=== PATIENT | female | born 1975 | race Caucasian/White ===

== ENCOUNTER 2018-11-30 12:00 | Emergency (ER) | payer BC ==
[2018-11-30] MEDS ORDERED: dexAMETHasone 10 MG/ML VIAL ONE (12:40)
[2018-11-30] MEDS ORDERED: FENTANYL CITR 100 MCG/2 ML ONE (12:41)
[2018-11-30] MEDS ORDERED: LIDOCAINE JELLY 2%- 5 ML TUBE ONE (12:42)
[2018-11-30] MEDS ORDERED: ONDANSETRON 4 MG (ODT) TAB ONE (12:42)
--- NOTE | 2018-11-30 13:58 | ER ---
Nurse's Notes [facility] Name: Isma Castillo Age: 43 yrs Sex: Female : 1975 Arrival Date: 11/30/2018 Time: 12:04 Bed 24 Private MD: Diagnosis: Lumbago with sciatica, left side Presentation: 11/30 12:20 Presenting complaint: Patient states: hx of torn disc X 1 month ago, was taking steroid iw injections as treatment, 30 min ago she stepped off the porch, had severe pain radiating from left low back down left leg, similar to her past injury. Transition of care: patient was not received from another setting of care. Onset of symptoms was November 30, 2018. Risk Assessment: Do you want to hurt yourself or someone else? Patient reports no desire to harm self or others. Initial Sepsis Screen: Does the patient meet any 2 criteria? No. Patient's initial sepsis screen is negative. Does the patient have a suspected source of infection? No. Patient's initial sepsis screen is negative. Care prior to arrival: None. 12:20 Method Of Arrival: Wheelchair iw 12:20 Acuity: ZAKI 4 iw Triage Assessment: 12:20 General: Appears in no apparent distress. uncomfortable, Behavior is calm, cooperative, hj appropriate for age. Pain: Complains of pain in back. Musculoskeletal: Circulation, motion, and sensation intact. 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 - Social history:: Smoking status: Patient/guardian denies using tobacco. - Ebola Screening: : Patient negative for fever greater than or equal to 101.5 degrees Fahrenheit, and additional compatible Ebola Virus Disease symptoms Patient denies exposure to infectious person Patient denies travel to an Ebola-affected area in the 21 days before illness onset No symptoms or risks identified at this time. Screenin:20 Abuse screen: Denies threats or abuse. Denies injuries from another. Nutritional hj screening: No deficits noted. Tuberculosis screening: No symptoms or risk factors identified. Fall Risk None identified. Assessment: 12:20 General: Appears in no apparent distress. uncomfortable, Behavior is cooperative, hj appropriate for age, anxious, crying. Pain: Complains of pain in back. Neuro: Level of Consciousness is awake, alert, obeys commands, Oriented to person, place, time, situation, Appropriate for age. Cardiovascular: Capillary refill < 3 seconds Patient's skin is warm and dry. Respiratory: Airway is patent Respiratory effort is even, unlabored, Respiratory pattern is regular, symmetrical. GI: No signs and/or symptoms were reported involving the gastrointestinal system. : No signs and/or symptoms were reported regarding the genitourinary system. EENT: No signs and/or symptoms were reported regarding the EENT system. Derm: No signs and/or symptoms reported regarding the dermatologic system. Musculoskeletal: Reports pain in back. 12:49 Reassessment: Patient and/or family updated on plan of care and expected duration. Pain hj level reassessed. Patient is alert, oriented x 3, equal unlabored respirations, skin warm/dry/pink. medicated;. 14:03 Reassessment: awaiting for ride in the room; wanted to lie down while waiting for ride;.hj Vital Signs: 12:26 BP 130 / 96; Pulse 90; Resp 16; Temp 98.0; Pulse Ox 100% on R/A; Weight 81.65 kg; iw Height 5 ft. 6 in. (167.64 cm); Pain 10/10; 12:48 BP 129 / 89; Pulse 85; Resp 18; Pulse Ox 100% on R/A; hj 13:36 BP 128 / 76; Pulse 95; Resp 18; Pulse Ox 98% on R/A; hj 12:26 Body Mass Index 29.05 (81.65 kg, 167.64 cm) iw ED Course: 12:04 Patient arrived in ED. mr 12:11 Adebayo Verduzco RN is Primary Nurse. hj 12:12 Arturo Rojas NP is PHCP. pm1 12:12 Lakia Wylie MD is Attending Physician. pm1 12:20 Patient has correct armband on for positive identification. Bed in low position. Call hj light in reach. Side rails up X 1. 12:23 Triage completed. iw 12:28 Arm band placed on. iw 14:22 No provider procedures requiring assistance completed. Patient did not have IV access hj during this emergency room visit. Administered Medications: 12:23 Drug: lidocaine 5% patch 1 patches Route: Topical; Site: affected area; hj 12:23 Drug: fentaNYL (PF) 50 mcg Route: IM; Site: right deltoid; hj 14:27 Follow up: Response: No adverse reaction hj 12: Drug: Zofran 4 mg Route: PO; hj 14:27 Follow up: Response: No adverse reaction hj 12:23 Drug: Decadron 10 mg Route: IM; Site: right deltoid; hj 14:27 Follow up: Response: No adverse reaction hj Outcome: 13:58 Discharge ordered by MD. pm1 14:23 Discharged to home ambulatory. hj 14:23 Condition: stable 14:23 Discharge instructions given to patient, family, Instructed on discharge instructions, follow up and referral plans. medication usage, Demonstrated understanding of instructions, follow-up care, medications, Prescriptions given X 3. 14:26 Patient left the ED. Signatures: Sparkle Hyatt Irene, RN RN iw Adebayo Verduzco RN RN Arturo Ivory, DG ONCOLOGY PHYSICIAN pm1
--- NOTE | 2018-11-30 13:58 | EDPHYS ---
Physician Documentation [facility] Name: Isma Castillo Age: 43 yrs Sex: Female : 1975 Arrival Date: 11/30/2018 Time: 12:04 Bed 24 Private MD: ED Physician Lakia Wylie HPI: 11/30 12:31 This 43 yrs old Female presents to ER via Wheelchair with complaints of Back pm1 Pain. 12:31 The patient presents with pain. The symptoms are located in the left low back. Onset: pm1 The symptoms/episode began/occurred just prior to arrival. The pain radiates to the left leg. Associated signs and symptoms: Pertinent negatives: abdominal pain, constipation, dysuria, fever, headache, incontinence, numbness, tingling, vomiting. The problem was sustained Patient stepped off her porch with the left leg and she felt pain to her left lower back. Patient with herniated disk L5-S1 that was treated with steroid injection 1 month ago in [place]. Patient just moved to [facility] 1 week ago. The patient has experienced similar episodes in the past. 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 - Social history:: Smoking status: Patient/guardian denies using tobacco. - Ebola Screening: : Patient negative for fever greater than or equal to 101.5 degrees Fahrenheit, and additional compatible Ebola Virus Disease symptoms Patient denies exposure to infectious person Patient denies travel to an Ebola-affected area in the 21 days before illness onset No symptoms or risks identified at this time. ROS: 12:31 Constitutional: Negative for fever, chills, and weight loss, Eyes: Negative for injury, pm1 pain, redness, and discharge, ENT: Negative for injury, pain, and discharge, Neck: Negative for injury, pain, and swelling, Cardiovascular: Negative for chest pain, palpitations, and edema, Respiratory: Negative for shortness of breath, cough, wheezing, and pleuritic chest pain, Abdomen/GI: Negative for abdominal pain, nausea, vomiting, diarrhea, and constipation. 12:31 : Negative for injury, bleeding, discharge, and swelling, MS/Extremity: Negative for injury and deformity, Skin: Negative for injury, rash, and discoloration, Neuro: Negative for headache, weakness, numbness, tingling, and seizure. 12:31 Back: Positive for of the left low back. Exam: 12:31 Constitutional: This is a well developed, well nourished patient who is awake, alert, pm1 and in no acute distress. Head/Face: Normocephalic, atraumatic. Eyes: Pupils equal round and reactive to light, extra-ocular motions intact. Lids and lashes normal. Conjunctiva and sclera are non-icteric and not injected. Cornea within normal limits. Periorbital areas with no swelling, redness, or edema. ENT: Nares patent. No nasal discharge, no septal abnormalities noted. Tympanic membranes are normal and external auditory canals are clear. Oropharynx with no redness, swelling, or masses, exudates, or evidence of obstruction, uvula midline. Mucous membranes moist. Neck: Trachea midline, no thyromegaly or masses palpated, and no cervical lymphadenopathy. Supple, full range of motion without nuchal rigidity, or vertebral point tenderness. No Meningismus. Chest/axilla: Normal chest wall appearance and motion. Nontender with no deformity. No lesions are appreciated. Cardiovascular: Regular rate and rhythm with a normal S1 and S2. No gallops, murmurs, or rubs. Normal PMI, no JVD. No pulse deficits. Respiratory: Lungs have equal breath sounds bilaterally, clear to auscultation and percussion. No rales, rhonchi or wheezes noted. No increased work of breathing, no retractions or nasal flaring. Abdomen/GI: Soft, non-tender, with normal bowel sounds. No distension or tympany. No guarding or rebound. No evidence of tenderness throughout. 12:31 Skin: Warm, dry with normal turgor. Normal color with no rashes, no lesions, and no evidence of cellulitis. MS/ Extremity: Pulses equal, no cyanosis. Neurovascular intact. Full, normal range of motion. 12:31 Back: pain, that is moderate, normal spinal alignment noted, vertebral tenderness, is not appreciated. 12:31 Neuro: Orientation: is normal, Motor: is normal, moves all fours. Vital Signs: 12:26 BP 130 / 96; Pulse 90; Resp 16; Temp 98.0; Pulse Ox 100% on R/A; Weight 81.65 kg; iw Height 5 ft. 6 in. (167.64 cm); Pain 10/10; 12:48 BP 129 / 89; Pulse 85; Resp 18; Pulse Ox 100% on R/A; hj 13:36 BP 128 / 76; Pulse 95; Resp 18; Pulse Ox 98% on R/A; hj 12:26 Body Mass Index 29.05 (81.65 kg, 167.64 cm) iw MDM: 12:16 Patient medically screened. pm1 13:14 Data reviewed: vital signs. Data interpreted: Pulse oximetry: on room air is 100 %. pm1 Interpretation: normal. 13:57 Counseling: I had a detailed discussion with the patient and/or guardian regarding: the pm1 historical points, exam findings, and any diagnostic results supporting the discharge/admit diagnosis, the need for outpatient follow up, to return to the emergency department if symptoms worsen or persist or if there are any questions or concerns that arise at home. Administered Medications: 12:23 Drug: lidocaine 5% patch 1 patches Route: Topical; Site: affected area; hj 12:23 Drug: fentaNYL (PF) 50 mcg Route: IM; Site: right deltoid; hj 14:27 Follow up: Response: No adverse reaction hj 12:23 Drug: Zofran 4 mg Route: PO; hj 14:27 Follow up: Response: No adverse reaction hj 12:23 Drug: Decadron 10 mg Route: IM; Site: right deltoid; hj 14:27 Follow up: Response: No adverse reaction hj Disposition: 18:59 Co-signature as Attending Physician, Lakia Wylie MD. ma2 Disposition: 11/30/18 13:58 Discharged to Home. Impression: Lumbago with sciatica, left side. - Condition is Stable. - Discharge Instructions: Back Pain, Adult, Sciatica. - Prescriptions for Tylenol- Codeine #3 300-30 mg Oral Tablet - take 2 tablets by ORAL route every 6 hours As needed; 20 tablet. Cyclobenzaprine 10 mg Oral Tablet - take 1 tablet by ORAL route every 8 hours As needed; 30 tablet. Medrol (Anibal) 4 mg Oral Tablets, Dose Pack - take 1 tablet by ORAL route as directed - follow package instructions; 1 packet. - Medication Reconciliation Form, Thank You Letter, Antibiotic Education, Prescription Opioid Use form. - Follow up: Emergency Department; When: As needed; Reason: Worsening of condition. Follow up: Private Physician; When: 2 - 3 days; Reason: Recheck today's complaints, Continuance of care, Re-evaluation by your physician. - Problem is new. - Symptoms have improved. Signatures: Amber Hyde RN RN iw Adebayo Verduzco RN RN hj Arturo Rojas NP MARKETING AUTOMATION SPECIALIST pm1 Lakia Wylie MD MD ma2 Corrections: (The following items were deleted from the chart) 14:26 13:58 11/30/2018 13:58 Discharged to Home. Impression: Lumbago with sciatica, left hj side. Condition is Stable. Forms are Medication Reconciliation Form, Thank You Letter, Antibiotic Education, Prescription Opioid Use. Follow up: Emergency Department; When: As needed; Reason: Worsening of condition. Follow up: Private Physician; When: 2 - 3 days; Reason: Recheck today's complaints, Continuance of care, Re-evaluation by your physician. Problem is new. Symptoms have improved. pm1
== END 2018-11-30 14:26 | disposition home or self-care (01) ==
LOC: ER 12:00
DX: M54.42 Lumbago with sciatica, left side (principal)
CPT/HCPCS: 96372; 99283; J1100; J3010

== ENCOUNTER 2019-03-06 14:27 | Emergency (ER) | payer BC ==
[2019-03-06] MEDS ORDERED: ONDANSETRON 4 MG/2 ML VIAL ONE (15:19)
[2019-03-06] MEDS ORDERED: MECLIZINE HCL 12.5 MG TAB ONE (15:19)
[2019-03-06] MEDS ORDERED: NA CHLORIDE 0.9% 1,000 ML ONE (15:19)
--- NOTE | 2019-03-06 15:34 | RAD REPORT ---
EXAM DESCRIPTION: CT - Head Brain Wo Cont - 03/06/2019 3:30 pm CLINICAL HISTORY: Dizziness, headache COMPARISON: None. TECHNIQUE: Axial 5 mm thick images of the head were obtained without IV contrast. All CT scans are performed using dose optimization technique as appropriate and may include automated exposure control or mA/KV adjustment according to patient size. FINDINGS: No intracranial hemorrhage, mass, edema or shift of mid-line structures. No acute infarcti on changes seen. No abnormal extra-axial fluid collections. Ventricles are normal. Mastoid air cells and visualized portions of the paranasal sinuses are clear. No acute bony findings. IMPRESSION: Negative non-contrast CT head examination.
[2019-03-06 15:37] LABS: Protime INR 1.02
--- NOTE | 2019-03-06 15:54 | RAD REPORT ---
EXAM DESCRIPTION: RAD - Chest Single View - 03/06/2019 3:39 pm CLINICAL HISTORY: Chest pain COMPARISON: None. TECHNIQUE: AP portable chest image was obtained 1536 hours . FINDINGS: Lungs are clear. Heart and vasculature are normal. No measurable pleural effusion and no p neumothorax. No acute bony abnormality seen. No acute aortic findings suspected. IMPRESSION: No acute cardiopulmonary process.
[2019-03-06 15:57] LABS: ALT/SGPT 52 U/L (12-78); AST/SGOT 24 U/L (15-37); Albumin 3.8 g/dL (3.4-5.0); Alkaline Phosphatase 83 U/L (45-117); BUN Blood Urea Nitrogen 14 mg/dL (7-18); Bicarbonate 29 mmol/L (21-32); Bilirubin Direct < 0.1 mg/dL (0-0.2); Bilirubin Total 0.4 mg/dL (0.2-1.0); Glucose Level 89 mg/dL (74-106); NT PRO-BNP 11 pg/mL (<125); Potassium 3.8 mmol/L (3.5-5.1); Protein, Total 7.4 g/dL (6.4-8.2); Sodium Level 138 mmol/L (136-145); Troponin (Emerg Dept Use Only) < 0.02 ng/mL (0.0-0.045)
[2019-03-06 16:04] LABS: Absolute Lymphocytes (CBC) 2.2 K/uL (0.7-4.9); Basophils % 0.5 % (0-1.3); Hematocrit 39.4 % (36.0-45.0); Lymphocytes % 34.6 % (15.3-44.8); RBC Red Blood Cell Count 4.36 M/uL (3.86-4.86)
--- NOTE | 2019-03-06 17:13 | EKG ---
Test Date: 2019-03-06 Test Time: 14:52:09 Heat Engineering Teacher: ELIZABETH MEASUREMENT RESULTS: Intervals: Rate: 95 WY: 148 QRSD: 80 QT: 374 QTc: 469 [place]: P: 53 WY: 148 QRS: 8 T: 17 INTERPRETIVE STATEMENTS: Normal sinus rhythm Normal ECG No previous ECG available for comparison Electronically Signed On 03-06-19 17:12:34 CDT by Maicol Verdugo
[2019-03-06] MEDS ORDERED: DIAZEPAM 10 MG/2 ML INJ SYRINGE ONE (17:50)
--- NOTE | 2019-03-06 18:08 | EDPHYS ---
Physician Documentation [facility] Name: Isma Castillo Age: 43 yrs Sex: Female : 1975 Arrival Date: 03/06/2019 Time: 14:31 Bed 30 Private MD: ED Physician Fortunato Flores HPI: 03/06 15:15 This 43 yrs old Female presents to ER via EMS with complaints of Chest Pain, jmm Insect Bite. 15:15 The patient presents with dizziness. Onset: The symptoms/episode began/occurred jm acutely, just prior to arrival. This is a 43 year old female with a history of fibromyalgia that presents to the ED with complaints of chest pain and dizziness which began while at urgent care evaluating a rash on her left bicep. Patient denies history of CAD, htn. Denies tobacco use. . 17:39 Patient states recovering from a couple 3 week prior. . jmm Historical: - Allergies: 14:35 No Known Allergies; tr5 - Home Meds: 14:35 Celexa 20 mg Oral tab 1 tab once daily [Active]; cyclobenzaprine 5 mg Oral tab 1 tab 3 tr5 times per day [Active]; Lunesta 2 mg Oral tab 1 tab once daily [Active]; - PMHx: 14:35 Fibromyalgia; Anxiety; insomnia; tr5 - PSHx: 14:35 Knee surgery; Hysterectomy; tr5 - Immunization history:: Adult Immunizations up to date. - Social history:: Smoking status: Patient/guardian denies using tobacco, never smoked. - Ebola Screening: : No symptoms or risks identified at this time. ROS: 15:15 Constitutional: Negative for fever, chills, and weight loss. jmm 15:15 Respiratory: Negative for shortness of breath, cough, wheezing, and pleuritic chest pain. 15:15 Cardiovascular: Positive for chest pain. 15:15 Abdomen/GI: Positive for nausea. 15:15 Skin: Positive for rash. 15:15 Neuro: Positive for dizziness. 15:15 All other systems are negative. Exam: 15:15 Constitutional: This is a well developed, well nourished patient who is awake, alert, jmm and in no acute distress. Head/Face: atraumatic. Eyes: EOMI, no conjunctival erythema appreciated ENT: Moist Mucus Membranes Neck: Trachea midline, Supple Chest/axilla: Normal chest wall appearance and motion. Cardiovascular: Regular rate and rhythm. No edema appreciated Respiratory: Normal respirations, no respiratory distress appreciated Abdomen/GI: Non distended, soft Back: Normal ROM Skin: General appearance color normal 15:15 Cardiovascular: Rate: normal, Rhythm: regular. 15:15 Respiratory: the patient does not display signs of respiratory distress, Respirations: normal, Breath sounds: are clear throughout. 15:15 Abdomen/GI: Inspection: abdomen appears normal, Bowel sounds: normal, Palpation: abdomen is soft and non-tender, in all quadrants. 15:15 Musculoskeletal/extremity: ROM: intact in all extremities. 15:15 Skin: Appearance: Color: normal in color. 15:15 Neuro: Orientation: is normal, Mentation: is normal, Memory: is normal. 15:15 Psych: Behavior/mood is pleasant, cooperative. 17:38 Skin: erythema noted to the left bicep. [facility] Vital Signs: 14:35 BP 124 / 81; Pulse 92; Resp 17; Temp 98.7(O); Pulse Ox 95% on R/A; Weight 88.45 kg; tr5 Height 5 ft. 6 in. (167.64 cm); Pain 5/10; 15:46 BP 125 / 81; Pulse 92; Resp 16; Pulse Ox 100% on R/A; tr5 17:00 BP 116 / 64; Pulse 92; Resp 15; Pulse Ox 99% on R/A; tr5 18:17 BP 116 / 72; Pulse 96; Resp 15; Pulse Ox 99% on R/A; tr5 14:35 Body Mass Index 31.47 (88.45 kg, 167.64 cm) tr5 MDM: 15:16 Patient medically screened. [facility] 18:03 Data reviewed: vital signs, nurses notes. Counseling: I had a detailed discussion with [facility] the patient and/or guardian regarding: the historical points, exam findings, and any diagnostic results supporting the discharge/admit diagnosis, lab results, radiology results, the need for outpatient follow up, to return to the emergency department if symptoms worsen or persist or if there are any questions or concerns that arise at home. ED course: PERC NEGATIVE. HEART SCORE = 0. Dizziness resolved in the ED. May be due to labrynthitis due to recent cold. Patient prescribed steroids. Patient advised to follow up with Dr. Murray for reevaluation. Patient otherwise given strict return precautions. Patient understood and agrees with the plan of care. . 03/06 15:15 Order name: Basic Metabolic Panel; Complete Time: 16: [facility] 03/06 15:15 Order name: CBC with Diff; Complete Time: 16:37 [facility] 03/06 15:15 Order name: LFT's; Complete Time: 16: [facility] 03/06 15:15 Order name: Magnesium; Complete Time: 16: [facility] 03/06 15:15 Order name: NT PRO-BNP; Complete Time: 16: [facility] 03/06 15:15 Order name: PT-INR; Complete Time: 16:37 [facility] 03/06 15:15 Order name: Troponin (emerg Dept Use Only); Complete Time: 16: [facility] 03/06 15:15 Order name: XRAY Chest (1 view); Complete Time: 16: [facility] 03/06 15:15 Order name: EKG; Complete Time: 15:16 [facility] 03/06 15:15 Order name: CT Head Brain wo Cont; Complete Time: 15:49 [facility] 03/06 15:15 Order name: Cardiac monitoring; Complete Time: 15:18 [facility] 03/06 15:15 Order name: EKG - Nurse/Tech; Complete Time: 15:18 [facility] 03/06 15:15 Order name: IV Saline Lock; Complete Time: 15:17 [facility] 03/06 15:15 Order name: Labs collected and sent; Complete Time: 15:17 [facility] 03/06 15:15 Order name: O2 Per Protocol; Complete Time: 15: [facility] 03/06 15:15 Order name: O2 Sat Monitoring; Complete Time: 15:17 [facility] Administered Medications: 15:26 Drug: Zofran 4 mg Route: IVP; Site: right antecubital; tr5 15:46 Follow up: Response: Nausea is decreased tr5 15:26 Drug: Meclizine 50 mg Route: PO; tr5 15:46 Follow up: Response: Marked relief of symptoms tr5 15:46 Drug: NS 0.9% 1000 ml Route: IV; Rate: 1 bolus; Site: right antecubital; tr5 16:15 Follow up: IV Status: Completed infusion; IV Intake: 1000ml tr5 17:54 Drug: Valium 2 mg Route: IVP; Site: right antecubital; tr5 18:17 Follow up: Response: Anxiety decreased tr5 Disposition: 03/06/19 18:07 Discharged to Home. Impression: Dizziness and giddiness, Chest pain, unspecified, Cellulitis of left upper limb. - Condition is Stable. - Discharge Instructions: Nonspecific Chest Pain, Dizziness, Chest Pain, Pediatric, Labyrinthitis. - Prescriptions for Prednisone 20 mg Oral Tablet - take 3 tablet by ORAL route once daily for 5 days; 15 tablet. Valium 5 mg Oral Tablet - take 1 tablet by ORAL route every 8 hours As needed; 20 tablet. Keflex 500 mg Oral Capsule - take 1 capsule by ORAL route every 12 hours for 7 days; 14 capsule. - Medication Reconciliation Form, Thank You Letter, Antibiotic Education, Prescription Opioid Use form. - Follow up: Private Physician; When: 2 - 3 days; Reason: Recheck today's complaints, Continuance of care, Re-evaluation by your physician. Addendum: 03/08/2019 22:45 Co-signature as Attending Physician, Fortunato Flores MD. g s Signatures: Dispatcher [employer] EDMS Marcos Parker PA PA jmm Starr, Gregory, MD MD gs Botello, Elizabeth eb Rodriguez, Tommie, RN RN tr5 Corrections: (The following items were deleted from the chart) 03/06 18:24 18:07 03/06/2019 18:07 Discharged to Home. Impression: Dizziness and giddiness; Chest tr5 pain, unspecified; Cellulitis of left upper limb. Condition is Stable. Forms are Medication Reconciliation Form, Thank You Letter, Antibiotic Education, Prescription Opioid Use. Follow up: Private Physician; When: 2 - 3 days; Reason: Recheck today's complaints, Continuance of care, Re-evaluation by your physician. [facility] 18:55 18:24 03/06/2019 18:07 Discharged to Home. Impression: Dizziness and giddiness; Chest eb pain, unspecified; Cellulitis of left upper limb. Condition is Stable. Discharge Instructions: Nonspecific Chest Pain, Dizziness, Chest Pain, Pediatric, Labyrinthitis. Prescriptions for Prednisone 20 mg Oral Tablet - take 3 tablet by ORAL route once daily for 5 days; 15 tablet, Valium 5 mg Oral Tablet - take 1 tablet by ORAL route every 8 hours As needed; 20 tablet. and Forms are Medication Reconciliation Form, Thank You Letter, Antibiotic Education, Prescription Opioid Use. Follow up: Private Physician; When: 2 - 3 days; Reason: Recheck today's complaints, Continuance of care, Re-evaluation by your physician. tr5
--- NOTE | 2019-03-06 18:08 | ER ---
Nurse's Notes [facility] Name: Isma Castillo Age: 43 yrs Sex: Female : 1975 Arrival Date: 03/06/2019 Time: 14:31 Bed 30 Private MD: Diagnosis: Dizziness and giddiness;Chest pain, unspecified;Cellulitis of left upper limb Presentation: 03/06 14:32 Presenting complaint: EMS states: Pt was at urgent care for a insect bite to her L tr5 bicep when she started experiencing some sternal chest pain and nausea. Pt also complains of some dizziness. Transition of care: Urgent care center. Onset of symptoms was March 06, 2019. Risk Assessment: Do you want to hurt yourself or someone else? Patient reports no desire to harm self or others. Initial Sepsis Screen: Does the patient meet any 2 criteria? HR > 90 bpm. No. Patient's initial sepsis screen is negative. Does the patient have a suspected source of infection? No. Patient's initial sepsis screen is negative. Care prior to arrival: None. 14:32 Method Of Arrival: EMS: [facility] tr5 14:32 Acuity: ZAKI 3 tr5 Historical: - Allergies: 14:35 No Known Allergies; tr5 - Home Meds: 14:35 Celexa 20 mg Oral tab 1 tab once daily [Active]; cyclobenzaprine 5 mg Oral tab 1 tab 3 tr5 times per day [Active]; Lunesta 2 mg Oral tab 1 tab once daily [Active]; - PMHx: 14:35 Fibromyalgia; Anxiety; insomnia; tr5 - PSHx: 14:35 Knee surgery; Hysterectomy; tr5 - Immunization history:: Adult Immunizations up to date. - Social history:: Smoking status: Patient/guardian denies using tobacco, never smoked. - Ebola Screening: : No symptoms or risks identified at this time. Screenin:40 Abuse screen: Denies threats or abuse. Nutritional screening: No deficits noted. tr5 Tuberculosis screening: No symptoms or risk factors identified. Fall Risk None identified. Assessment: 14:40 General: Appears uncomfortable, Behavior is calm, cooperative, appropriate for age. tr5 Pain: Complains of pain in mid-sternal area Pain does not radiate. Pain currently is 5 out of 10 on a pain scale. Quality of pain is described as aching, Pain began 30 min ago. Pain: Alleviated by relaxation. Neuro: Level of Consciousness is. Neuro: Reports dizziness. Cardiovascular: Heart tones present Capillary refill < 3 seconds Pulses are all present. Edema is 1+ to left upper arm. Respiratory: Airway is patent Respiratory effort is even, unlabored, Respiratory pattern is regular, symmetrical. GI:. GI: Reports nausea. : No signs and/or symptoms were reported regarding the genitourinary system. EENT: No signs and/or symptoms were reported regarding the EENT system. Derm: Bite to L biceps. Musculoskeletal: No signs and/or symptoms reported regarding the musculoskeletal system. 15:49 Reassessment: Patient appears in no apparent distress at this time. Patient and/or tr5 family updated on plan of care and expected duration. Pain level reassessed. Patient is alert, oriented x 3, equal unlabored respirations, skin warm/dry/pink. Patient states feeling better. 17:00 Reassessment: Patient appears in no apparent distress at this time. Patient and/or tr5 family updated on plan of care and expected duration. Pain level reassessed. Patient is alert, oriented x 3, equal unlabored respirations, skin warm/dry/pink. 18:16 Reassessment: Patient appears in no apparent distress at this time. Patient and/or tr5 family updated on plan of care and expected duration. Pain level reassessed. Patient is alert, oriented x 3, equal unlabored respirations, skin warm/dry/pink. Patient states feeling better. Patient states symptoms have improved. Vital Signs: 14:35 BP 124 / 81; Pulse 92; Resp 17; Temp 98.7(O); Pulse Ox 95% on R/A; Weight 88.45 kg; tr5 Height 5 ft. 6 in. (167.64 cm); Pain 5/10; 15:46 BP 125 / 81; Pulse 92; Resp 16; Pulse Ox 100% on R/A; tr5 17:00 BP 116 / 64; Pulse 92; Resp 15; Pulse Ox 99% on R/A; tr5 18:17 BP 116 / 72; Pulse 96; Resp 15; Pulse Ox 99% on R/A; tr5 14:35 Body Mass Index 31.47 (88.45 kg, 167.64 cm) tr5 ED Course: 14:31 Patient arrived in ED. tr5 14:34 Triage completed. tr5 14:35 Arm band placed on Patient placed. tr5 14:40 Avel Sanchez, RN is Primary Nurse. tr5 14:40 Patient has correct armband on for positive identification. Bed in low position. Call tr5 light in reach. Side rails up X 1. monitor technician on. Pulse ox on. NIBP on. 14:55 Initial lab(s) drawn, by ks, sent to lab. Inserted saline lock: 22 gauge in right tr5 antecubital area, using aseptic technique. 15:08 Marcos Parker PA is PHCP. [facility] 15:08 Fortunato Flores MD is Attending Physician. [facility] 15:15 EKG done, by landfill gas technician. reviewed by Fortunato Flores MD. 3 15:[address] tr5 15:30 CT Head Brain wo Cont In Process Unspecified. EDMS 15:38 XRAY Chest (1 view) In Process Unspecified. EDMS 18:23 No provider procedures requiring assistance completed. IV discontinued. Patient tr5 maintains SpO2 saturation greater than 95% on room air. 18:48 PHCP role handed off by Marcos Parker PA eb 18:48 Primary Nurse role handed off by Avel Sanchez, NUPUR eb Administered Medications: 15:26 Drug: Zofran 4 mg Route: IVP; Site: right antecubital; tr5 15:46 Follow up: Response: Nausea is decreased tr5 15:26 Drug: Meclizine 50 mg Route: PO; tr5 15:46 Follow up: Response: Marked relief of symptoms tr5 15:46 Drug: NS 0.9% 1000 ml Route: IV; Rate: 1 bolus; Site: right antecubital; tr5 16:15 Follow up: IV Status: Completed infusion; IV Intake: 1000ml tr5 17:54 Drug: Valium 2 mg Route: IVP; Site: right antecubital; tr5 18:17 Follow up: Response: Anxiety decreased tr5 Intake: 16:15 IV: 1000ml; Total: 1000ml. tr5 Outcome: 18:07 Discharge ordered by . jm 18:23 Discharged to home ambulatory. tr5 18:23 Condition: stable 18:23 Discharge instructions given to patient, family, Instructed on discharge instructions, follow up and referral plans. medication usage, Demonstrated understanding of instructions, follow-up care, medications, Prescriptions given X 2. 18:24 Patient left the ED. tr5 18:55 Patient left the ED. eb Signatures: Dispatcher [employer] EDMarcos Barth PA PA jmm Botello, Elizabeth eb Montes, Shakira 3 Avel Sanchez, RN RN tr5
[2019-03-06 18:37] VITALS: TEMP 98.7
[2019-03-06 18:39] VITALS: O2SAT 99
[2019-03-06 18:40] VITALS: BP 116/72
== END 2019-03-06 18:55 | disposition home or self-care (01) ==
LOC: ER 14:27
DX: R07.9 Chest pain, unspecified (principal); L03.114 Cellulitis of left upper limb; F41.9 Anxiety disorder, unspecified; M79.7 Fibromyalgia
CPT/HCPCS: 93005; 85025; 80048; 36415; 83735; 85610; 80076; 84484; 83880; 70450; 71045; 96375; 96374; 99285; J3360; J7030; J2405; J8597

== ENCOUNTER 2020-05-12 15:49 | Emergency (ER) | payer BC ==
--- OUTSIDE RECORDS SUMMARY | 2020-05-12 15:51 | XMS REPORT | Continuity of Care Document ---
:1975 Author Organization [facility] t Address [address] [place] [address] Care Team Providers Name Role Phone Radiology Attending Clinician Unavailable Problems This patient has no known problems. Allergies, Adverse Reactions, Alerts This patient has no known allergies or adverse reactions. Medications This patient has no known medications. Procedures This patient has no known procedures. Encounters Start End Encounter Admission Attending Care Care Encounter Source Date/Time Date/Time Type Type Clinicians Facility Department ID 2019-12-24 2019-12-24 [facility] Radiology [facility] [id number] 12:43:00 23:59:00 Encounter [place] [id number] [place] [id number] [place] [id number] 2019-12-16 2019-12-16 [facility] Radiology [facility] [id number] 10:30:00 23:59:00 Encounter [place] [id number] [place] [id number] [place] [id number] 2019-08-01 2019-08-01 Emergency E [facility] [id number] [facility]BL 13:27:00 13:27:00 Results This patient has no known results.
[2020-05-12 17:11] LABS: Urine Blood TRACE (NEG); Urine Glucose NEGATIVE (NEG); Urine Protein NEGATIVE (NEG); Urine Specific Gravity 1.025 (1.005-1.030); Urine pH 5.5 (5.0-7.0)
[2020-05-12] MEDS ORDERED: KETOROLAC 30 MG/ML INJ ONE (17:41)
[2020-05-12] MEDS ORDERED: DIAZEPAM 5 MG TABLET ONE (17:41)
[2020-05-12 18:02] LABS: Urine Bacteria >50 /HPF (<20); Urine RBC <5 /HPF (NONE SEEN)
--- NOTE | 2020-05-12 18:18 | EDPHYS ---
Physician Documentation [facility] Name: Isma Castillo Age: 44 yrs Sex: Female : 1975 Arrival Date: 05/12/2020 Time: 15:50 Bed 24 Private MD: Adrien Murray B ED Physician Eder Wise HPI: 05/12 17:47 This 44 yrs old Female presents to ER via Ambulatory with complaints of Back snw Pain. 17:47 The patient presents with pain that is acute. The symptoms are located in the low back. snw Onset: The symptoms/episode began/occurred suddenly, and became worse and became persistent. The pain radiates to the left gluteus inderjit. Associated signs and symptoms: Pertinent positives: none. The problem was sustained during a fall. Severity of symptoms: At their worst the symptoms were moderate, severe. The patient has experienced similar episodes in the past, several times. The patient has not recently seen a physician. tore musculature of L5/S1. 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 - Social history:: Smoking status: Patient denies any tobacco usage or history of. ROS: 17:46 Constitutional: Negative for fever, chills, and weight loss, Eyes: Negative for injury, snw pain, redness, and discharge, ENT: Negative for injury, pain, and discharge, Neck: Negative for injury, pain, and swelling, Cardiovascular: Negative for chest pain, palpitations, and edema, Respiratory: Negative for shortness of breath, cough, wheezing, and pleuritic chest pain, Abdomen/GI: Negative for abdominal pain, nausea, vomiting, diarrhea, and constipation, : Negative for injury, bleeding, discharge, and swelling, MS/Extremity: Negative for injury and deformity, Skin: Negative for injury, rash, and discoloration, Neuro: Negative for headache, weakness, numbness, tingling, and seizure, Psych: Negative for depression, anxiety, suicide ideation, homicidal ideation, and hallucinations. 17:46 Back: Positive for decreased range of motion, pain at rest, pain with movement, radiated pain, of the left low back and down left buttock. Exam: 17:45 Head/Face: Normocephalic, atraumatic. Eyes: Pupils equal round and reactive to light, snw extra-ocular motions intact. Lids and lashes normal. Conjunctiva and sclera are non-icteric and not injected. Cornea within normal limits. Periorbital areas with no swelling, redness, or edema. ENT: Nares patent. No nasal discharge, no septal abnormalities noted. Tympanic membranes are normal and external auditory canals are clear. Oropharynx with no redness, swelling, or masses, exudates, or evidence of obstruction, uvula midline. Mucous membranes moist. Neck: Trachea midline, no thyromegaly or masses palpated, and no cervical lymphadenopathy. Supple, full range of motion without nuchal rigidity, or vertebral point tenderness. No Meningismus. Chest/axilla: Normal chest wall appearance and motion. Nontender with no deformity. No lesions are appreciated. Respiratory: Lungs have equal breath sounds bilaterally, clear to auscultation and percussion. No rales, rhonchi or wheezes noted. No increased work of breathing, no retractions or nasal flaring. Abdomen/GI: Soft, non-tender, with normal bowel sounds. No distension or tympany. No guarding or rebound. No evidence of tenderness throughout. Skin: Warm, dry with normal turgor. Normal color with no rashes, no lesions, and no evidence of cellulitis. MS/ Extremity: Pulses equal, no cyanosis. Neurovascular intact. Full, normal range of motion. Neuro: Awake and alert, GCS 15, oriented to person, place, time, and situation. Cranial nerves II-XII grossly intact. Motor strength 5/5 in all extremities. Sensory grossly intact. Cerebellar exam normal. Normal gait. Psych: Awake, alert, with orientation to person, place and time. Behavior, mood, and affect are within normal limits. 17:45 Constitutional: The patient appears alert, awake, anxious, restless, uncomfortable. 17:45 Back: pain, that is moderate, that is severe, of the left low back, normal spinal alignment noted, CVA tenderness, is absent. 17:45 Neuro: Orientation: is normal, Mentation: is normal, Memory: is normal, Sensation: no obvious gross deficits, Babinski testing is normal, seizure activity, is not displayed by the patient. Vital Signs: 16:03 BP 137 / 96; Pulse 129; Resp 19; Temp 97.9; Pulse Ox 98% ; Weight 88.45 kg; Height 5 jl7 ft. 5 in. 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 aa5 MDM: 16:59 Patient medically screened. snw 18:32 Data reviewed: vital signs, nurses notes. Data interpreted: Pulse oximetry: on room air snw is 98 %. Interpretation: normal. Counseling: I had a detailed discussion with the patient and/or guardian regarding: the historical points, exam findings, and any diagnostic results supporting the discharge/admit diagnosis, lab results, the need for outpatient follow up, to return to the emergency department if symptoms worsen or persist or if there are any questions or concerns that arise at home. Response to treatment: the patient's symptoms have markedly improved after treatment. 05/12 16:17 Order name: Urine Culture snw 05/12 16:17 Order name: Urine Microscopic Only; Complete Time: 18:31 snw 05/12 16:54 Order name: Urine Dipstick--Ancillary (enter results); Complete Time: 17:15 bd 05/12 16:58 Order name: Flu; Complete Time: 18:31 snw 05/12 16:58 Order name: COVID-19 snw 05/12 16:17 Order name: Urine Dipstick-Ancillary (obtain specimen); Complete Time: 16:54 snw Administered Medications: 17:28 Drug: TORadol 60 mg Route: IM; Site: left gluteus; aa5 17:53 Follow up: Response: No adverse reaction; Marked relief of symptoms; Pain is decreased aa5 17:28 Drug: Valium 5 mg Route: PO; aa5 17:54 Follow up: Response: No adverse reaction; Marked relief of symptoms; Pain is decreased aa5 18:21 Drug: [place] 10 mg-325 mg 1 tabs Route: PO; aa5 18:21 Follow up: Response: No adverse reaction; Medication administered at discharge. aa5 18:34 CANCELLED (Other Intervention Used): Rocephin (cefTRIAXone) 1 grams IM once snw 18:35 Drug: Augmentin 875 mg Route: PO; aa5 18:40 Follow up: Response: No adverse reaction; Medication administered at discharge. aa5 Disposition: 05/13 07:52 Co-signature as Attending Physician, Eder Wise MD I agree with the assessment and kdr plan of care. Disposition: 05/12/20 18:17 Discharged to Home. Impression: Low back pain, Sciatica, left side, Urinary tract infection, site not specified. - Condition is Stable. - Discharge Instructions: Back Pain, Adult, Musculoskeletal Pain, Sciatica, Rehydration, Adult, Heat Therapy, Radicular Pain, Back Injury Prevention. - Prescriptions for Tylenol- Codeine #3 300-30 mg Oral Tablet - take 2 tablets by ORAL route every 6 hours As needed; 14 tablet. Prednisone 20 mg Oral Tablet - take 2 tablet by ORAL route once daily for 5 days; 10 tablet. orphenadrine citrate 100 mg Oral Tablet Sustained Release - take 1 tablet by ORAL route 2 times per day As needed; 20 tablet. Augmentin 875- 125 mg Oral Tablet - take 1 tablet by ORAL route every 12 hours for 10 days; 20 tablet. - Work release form, Medication Reconciliation Form, Thank You Letter, Antibiotic Education, Prescription Opioid Use form. - Follow up: Emergency Department; When: As needed; Reason: Worsening of condition. Follow up: Adrien Murray MD; When: 2 - 3 days; Reason: Recheck today's complaints, Continuance of care, Re-evaluation by your physician. Signatures: [facility] Eder Wise MD MD kdr Waters, Shelly, MAIL ORDER SORTER-C MAIL ORDER SORTER-Csnw Carolyn Babb RN RN aa5 Amita Fuentes RN RN jl7 Corrections: (The following items were deleted from the chart) 12 18:33 18:17 05/12/2020 18:17 Discharged to Home. Impression: Low back pain; Sciatica, left snw side. Condition is Stable. Forms are Medication Reconciliation Form, Thank You Letter, Antibiotic Education, Prescription Opioid Use. Follow up: Emergency Department; When: As needed; Reason: Worsening of condition. Follow up: Adrien Murray; When: 2 - 3 days; Reason: Recheck today's complaints, Continuance of care, Re-evaluation by your physician. snw 18:34 18:32 Rocephin (cefTRIAXone) 1 grams IM once ordered. snw snw 18:34 18:33 Rocephin (cefTRIAXone) 1 grams IM once ordered. snw snw 18:49 18:33 05/12/2020 18:17 Discharged to Home. Impression: Low back pain; Sciatica, left aa5 side; Urinary tract infection, site not specified. Condition is Stable. Discharge Instructions: Back Pain, Adult, Musculoskeletal Pain, Sciatica, Rehydration, Adult, Heat Therapy, Radicular Pain, Back Injury Prevention. Prescriptions for Tylenol-Codeine #3 300-30 mg Oral Tablet - take 2 tablets by ORAL route every 6 hours As needed; 14 tablet, Prednisone 20 mg Oral Tablet - take 2 tablet by ORAL route once daily for 5 days; 10 tablet, orphenadrine citrate 100 mg Oral Tablet Sustained Release - take 1 tablet by ORAL route 2 times per day As needed; 20 tablet. and Forms are Medication Reconciliation Form, Thank You Letter, Antibiotic Education, Prescription Opioid Use, Work release form. Follow up: Emergency Department; When: As needed; Reason: Worsening of condition. Follow up: Adrien Murray; When: 2 - 3 days; Reason: Recheck today's complaints, Continuance of care, Re-evaluation by your physician. snw
--- NOTE | 2020-05-12 18:18 | ER ---
Nurse's Notes [facility] Name: Isma Castillo Age: 44 yrs Sex: Female : 1975 Arrival Date: 05/12/2020 Time: 15:50 Bed 24 Private MD: Adrien Murray B Diagnosis: Low back pain;Sciatica, left side;Urinary tract infection, site not specified Presentation: 05/12 16:03 Chief complaint: Patient states: "I threw my back out, again." Reports Left low back jl7 pain. Coronavirus screen: Client denies travel out of the [place] in the last 14 days. At this time, the client does not indicate any symptoms associated with coronavirus-19. Ebola Screen: No symptoms or risks identified at this time. Initial Sepsis Screen: Does the patient meet any 2 criteria? No. Patient's initial sepsis screen is negative. Does the patient have a suspected source of infection? No. Patient's initial sepsis screen is negative. Risk Assessment: Do you want to hurt yourself or someone else? Patient reports no desire to harm self or others. Onset of symptoms was May 12, 2020. Care prior to arrival: None. 16:03 Method Of Arrival: Ambulatory jl7 16:03 Acuity: ZAKI 4 jl7 Triage Assessment: 16:05 General: Appears in no apparent distress. uncomfortable, Behavior is cooperative, jl7 anxious, crying. Pain: Complains of pain in left low back Pain currently is 8 out of 10 on a pain scale. Musculoskeletal: Swelling absent. 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 - Social history:: Smoking status: Patient denies any tobacco usage or history of. Screenin:54 Abuse screen: Denies threats or abuse. Denies injuries from another. Nutritional jl7 screening: No deficits noted. Tuberculosis screening: No symptoms or risk factors identified. Fall Risk Gait- Weak (10 pts.). Total [place] Fall Scale indicates Low Risk Score (25-44 pts). Fall prevention measures have been instituted. Side Rails Up X 2 Placed close to Nursing Station Frequent Obs/Assesments occuring Family Present and informed to notify staff if they need to leave bedside As available Patient and Family Educated on Fall Prevention Program and strategies. Assessment: 17:10 General: Appears uncomfortable, Behavior is calm, cooperative. Pain: Complains of pain aa5 in left low back Pain currently is 10 out of 10 on a pain scale. Quality of pain is described as sharp, shooting, Is continuous, Aggravated by increased activity, repositioning. Neuro: Level of Consciousness is awake, alert, obeys commands, Oriented to person, place, time, situation. Cardiovascular: Heart tones S1 S2 present Patient's skin is warm and dry. Rhythm is regular. Respiratory: Airway is patent Respiratory effort is even, unlabored, Respiratory pattern is regular, symmetrical. GI: No signs and/or symptoms were reported involving the gastrointestinal system. : No signs and/or symptoms were reported regarding the genitourinary system. EENT: No signs and/or symptoms were reported regarding the EENT system. Derm: Skin is pink, warm \\T\\ dry. Musculoskeletal: Range of motion: intact in all extremities. 17:53 Reassessment: Patient is alert, oriented x 3, equal unlabored respirations, skin aa5 warm/dry/pink. Patient states feeling better. Patient states symptoms have improved. Pain: Pain currently is 3 out of 10 on a pain scale. 18:40 Reassessment: Patient is alert, oriented x 3, equal unlabored respirations, skin aa5 warm/dry/pink. Patient states feeling better. Vital Signs: 16:03 BP 137 / 96; Pulse 129; Resp 19; Temp 97.9; Pulse Ox 98% ; Weight 88.45 kg; Height 5 jl7 ft. 5 in. 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 aa5 ED Course: 15:50 Patient arrived in ED. ag5 15:50 Adrien Murray MD is Private Physician. ag5 16:04 Triage completed. jl7 16:05 Arm band placed on right wrist. jl7 16:51 Amita Fuentes RN is Primary Nurse. jl7 16:54 Patient has correct armband on for positive identification. Placed in gown. Bed in low jl7 position. Call light in reach. Side rails up X 1. 16:54 Urine collected: clean catch specimen, clear. jl7 16:59 Nad[facility] Little [facility]C [facility] snw 16:59 Eder Wise MD is Attending Physician. snw 18:14 Adrien Murray MD is Referral Physician. snw 18:40 No provider procedures requiring assistance completed. Patient did not have IV access aa5 during this emergency room visit. Administered Medications: 17:28 Drug: TORadol 60 mg Route: IM; Site: left gluteus; aa5 17:53 Follow up: Response: No adverse reaction; Marked relief of symptoms; Pain is decreased aa5 17:28 Drug: Valium 5 mg Route: PO; aa5 17:54 Follow up: Response: No adverse reaction; Marked relief of symptoms; Pain is decreased aa5 18:21 Drug: [place] 10 mg-325 mg 1 tabs Route: PO; aa5 18:21 Follow up: Response: No adverse reaction; Medication administered at discharge. aa5 18:34 CANCELLED (Other Intervention Used): Rocephin (cefTRIAXone) 1 grams IM once snw 18:35 Drug: Augmentin 875 mg Route: PO; aa5 18:40 Follow up: Response: No adverse reaction; Medication administered at discharge. aa5 Outcome: 18:17 Discharge ordered by . snw 18:40 Discharged to home via wheelchair, with significant other. aa5 18:40 Condition: improved 18:40 Discharge instructions given to patient, Instructed on discharge instructions, follow up and referral plans. medication usage, Demonstrated understanding of instructions, follow-up care, medications, Prescriptions given X 4. 18:49 Patient left the ED. aa5 Addendum: 05/16/2020 16:10 Addendum: COVID-19 Result: Negative result given to RN to notify pt. Notified pt of i w negative COVID 19 swab results. Pt advised that even with a negative test result they should remain in isolation until symptom free for 3 days without medication. Pt also advised to return to the ED for worsening symptoms. Signatures: Nadja Little, NELI-C OIL AND GAS WELL TREATMENT OPERATOR-Csnw Amber Hyde RN RN iw Carolyn Babb RN RN aa5 Amita Fuentes RN RN jl7 [place] 5 Corrections: (The following items were deleted from the chart) 05/12 19:13 18:35 Pulse 102bpm; Resp 16bpm; Spontaneous; Pulse Ox 98% RA; aa5 aa5
[2020-05-12] MEDS ORDERED: HYDROCODONE/APAP 10/325 TAB ONE (18:33)
[2020-05-12] MEDS ORDERED: AMOX/K CLAV 875 MG TAB ONE (18:52)
[2020-05-13 14:10] VITALS: TEMP 97.9; O2SAT 98
[2020-05-13 14:11] VITALS: BP 127/89
== END 2020-05-12 18:49 | disposition home or self-care (01) ==
LOC: ER 15:49
DX: M54.32 Sciatica, left side (principal); N39.0 Urinary tract infection, site not specified; Z20.828 Contact with and (suspected) exposure to other viral communicable diseases; F41.9 Anxiety disorder, unspecified
CPT/HCPCS: 87088; 87086; 87804 ×2; 96372; 99283; U0002; 81003; 81015

== ENCOUNTER 2020-10-07 21:24 | Emergency (ER) | payer BC ==
--- OUTSIDE RECORDS SUMMARY | 2020-10-07 21:27 | XMS REPORT | Continuity of Care Document ---
:1975 Author Organization [facility] t Address [address] [place] [address] Care Team Providers Name Role Phone Radiology Attending Clinician Unavailable Problems This patient has no known problems. Allergies, Adverse Reactions, Alerts This patient has no known allergies or adverse reactions. Medications This patient has no known medications. Procedures This patient has no known procedures. Encounters Start End Encounter Admission Attending Care Care Encounter Source Date/Time Date/Time Type Type Clinicians Facility Department ID 2020-09-26 2020-09-26 Outpatient [facility] [id number] [facility] 2020-09-08 2020-09-08 Outpatient [facility] [id number] [facility] 2020-08-29 2020-08-29 Outpatient [facility] [id number] [facility] 2020-08-15 2020-08-15 Outpatient [facility] [id number] [facility] 2019-12-24 2019-12-24 Hospital Radiology [facility] [id number] 12:43:00 23:59:00 Encounter [place] [id number] [place] [id number] [place] [id number] 2019-12-16 2019-12-16 [facility] Radiology [facility] [id number] 10:30:00 23:59:00 Encounter [place] [id number] [place] [id number] [place] [id number] 2019-08-01 2019-08-01 Emergency E [facility] [id number] [facility] 13:27:00 13:27:00 Results This patient has no known results.
[2020-10-07] MEDS ORDERED: NA CHLORIDE 0.9% 1,000 ML ONE (22:11)
[2020-10-07] MEDS ORDERED: DICYCLOMINE HCL 10 MG CAP ONE (22:11)
[2020-10-07] MEDS ORDERED: ONDANSETRON 4 MG/2 ML VIAL ONE (22:11)
[2020-10-07 23:20] LABS: Absolute Lymphocytes (CBC) 0.8 K/uL (0.7-4.9); Basophils % 0.4 % (0-1.3); Hematocrit 38.6 % (36.0-45.0); Lymphocytes % 11.8 % (15.3-44.8); MPV 8.6 fL (7.6-11.3); RBC Red Blood Cell Count 4.37 M/uL (3.86-4.86)
[2020-10-07 23:42] LABS: ALT/SGPT 65 U/L (12-78); AST/SGOT 26 U/L (15-37); Albumin 3.4 g/dL (3.4-5.0); Alkaline Phosphatase 90 U/L (45-117); BUN Blood Urea Nitrogen 12 mg/dL (7-18); Bicarbonate 25 mmol/L (21-32); Bilirubin Direct 0.2 mg/dL (0-0.2); Bilirubin Total 0.7 mg/dL (0.2-1.0); Glucose Level 101 mg/dL (74-106); Lipase 193 U/L (73-393); Potassium 3.7 mmol/L (3.5-5.1); Protein, Total 6.9 g/dL (6.4-8.2); Sodium Level 140 mmol/L (136-145)
--- NOTE | 2020-10-07 23:48 | ER ---
Nurse's Notes [facility] Name: Isma Castillo Age: 45 yrs Sex: Female : 1975 Arrival Date: 10/07/2020 Time: 21:29 Bed 17 Private MD: Marques Pitts Diagnosis: Nausea and vomiting;Diarrhea, unspecified Presentation: 10/07 21:39 Chief complaint: Patient states: think it might be food poisoning, has been vomiting iw and having diarrhea since 11 am, now is just dry heaving and has a lot of nausea, no fever, having stomach cramps. Coronavirus screen: Client presents with at least one sign or symptom that may indicate coronavirus-19. Ebola Screen: Patient negative for fever greater than or equal to 101.5 degrees Fahrenheit, and additional compatible Ebola Virus Disease symptoms Patient denies exposure to infectious person. Patient denies travel to an Ebola-affected area in the 21 days before illness onset. No symptoms or risks identified at this time. Initial Sepsis Screen: Does the patient meet any 2 criteria? No. Patient's initial sepsis screen is negative. Does the patient have a suspected source of infection? No. Patient's initial sepsis screen is negative. Risk Assessment: Do you want to hurt yourself or someone else? Patient reports no desire to harm self or others. Onset of symptoms was October 07, 2020. 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 - Social history:: Smoking status: Patient denies any tobacco usage or history of. Screenin:16 Abuse screen: Denies threats or abuse. Denies injuries from another. Nutritional ad5 screening: No deficits noted. Tuberculosis screening: No symptoms or risk factors identified. Fall Risk None identified. Assessment: 22:12 General: Appears uncomfortable, ill, Behavior is calm, cooperative, appropriate for ad5 age. Pain: Complains of pain in epigastric area Pain does not radiate. Quality of pain is described as aching, dull, Pain began gradually, Is continuous. Neuro: No deficits noted. Level of Consciousness is awake, alert, obeys commands, Oriented to person, place, time, situation, Appropriate for age Moves all extremities. Gait is steady, Speech is normal, Facial symmetry appears normal. Cardiovascular: No deficits noted. Denies chest pain, shortness of breath, Heart tones present Capillary refill < 3 seconds JVD is absent Pulses are all present. Cardiovascular: Rhythm is regular. Respiratory: No deficits noted. Respiratory: Airway is patent Respiratory effort is even, unlabored, Respiratory pattern is regular, symmetrical. GI: Abdomen is flat, non-distended, Bowel sounds present X 4 quads. Guarding noted. GI: Last BM was October 07, 2020. Reports upper abdominal pain, cramping, diarrhea, intolerance of fluids, intolerance of food, nausea, vomiting. : No deficits noted. EENT: No deficits noted. Derm: No deficits noted. Musculoskeletal: No deficits noted. 23:15 Reassessment: Patient and/or family updated on plan of care and expected duration. Pain ad5 level reassessed. Patient is alert, oriented x 3, equal unlabored respirations, skin warm/dry/pink. Patient states feeling better. Patient states symptoms have improved. Vital Signs: 21:39 BP 119 / 88; Pulse 116; Resp 18; Temp 97.6; Pulse Ox 99% on R/A; Weight 88.45 kg; iw Height 5 ft. 5 in. (165.10 cm); 23:15 BP 109 / 45; Pulse 104; Resp 17 S; Pulse Ox 96% on R/A; ad5 21:39 Body Mass Index 32.45 (88.45 kg, 165.10 cm) iw ED Course: 21:29 Patient arrived in ED. es 21:29 Marques Pitts DO is Private Physician. es 21:41 Triage completed. iw 21:41 [facility] kb 21:41 Benjie Redman MD is Attending Physician. kb 21:42 Arm band placed on. iw 21:43 Jose Bowen is Primary Nurse. ad5 21:50 Patient has correct armband on for positive identification. Bed in low position. Call ad5 light in reach. Side rails up X2. Pulse ox on. NIBP on. Door closed. Noise minimized. Warm blanket given. 21:50 Initial lab(s) drawn, by me, sent to lab. Inserted saline lock: 20 gauge in left ad5 forearm, using aseptic technique. 23:16 No provider procedures requiring assistance completed. ad5 10/08 00:12 IV discontinued, intact, bleeding controlled, No redness/swelling at site. Pressure ad5 dressing applied. Administered Medications: 10/07 22:11 Drug: NS 0.9% 1000 ml Route: IV; Rate: 1000 ml; Site: left forearm; ad5 10/08 00:04 Follow up: IV Status: Completed infusion; IV Intake: 1000ml ad5 10/07 22:11 Drug: Zofran (Ondansetron) 4 mg Route: IVP; Site: left forearm; ad5 23:14 Follow up: Response: No adverse reaction; Nausea is decreased ad5 22:25 Drug: Bentyl (dicyclomine) 20 mg Route: PO; ad5 10/08 00:04 Follow up: Response: No adverse reaction; Marked relief of symptoms ad5 00:10 Drug: Zofran (Ondansetron) 4 mg Route: IVP; Site: left forearm; ad5 Intake: 00:04 IV: 1000ml; Total: 1000ml. ad5 Outcome: 10/07 23:48 Discharge ordered by . saniya 10/08 00:11 Discharged to home ambulatory, with significant other. ad5 Condition: stable Discharge instructions given to patient, Instructed on discharge instructions, follow up and referral plans. medication usage, Demonstrated understanding of instructions, follow-up care, medications, Prescriptions given X 2. 00:14 Patient left the ED. ad5 Signatures: Sveta Tello FNP-C FNP-Vivien Escoto Irene, NUPUR RN Jose Olivera ad5
--- NOTE | 2020-10-07 23:48 | EDPHYS ---
Physician Documentation [facility] Name: Isma Castillo Age: 45 yrs Sex: Female : 1975 Arrival Date: 10/07/2020 Time: 21:29 Bed 17 Private MD: Marques Pitts ED Physician Benjie Redman HPI: 10/07 23:44 This 45 yrs old Female presents to ER via Ambulatory with complaints of kb Vomiting, Diarrhea. 23:44 The patient presents to the emergency department with nausea, vomiting, diarrhea. kb Onset: The symptoms/episode began/occurred today. Possible causes: bad food exposure. The symptoms are aggravated by nothing. The symptoms are alleviated by nothing. Associated signs and symptoms: Pertinent positives: diarrhea, nausea, vomiting. Severity of symptoms: At their worst the symptoms were moderate in the emergency department the symptoms are unchanged. The patient has not experienced similar symptoms in the past. The patient has not recently seen a physician. Pt reports n/v/d for 10 hours. States it started suddenly about 30 minutes after having [employer]. . 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 - Social history:: Smoking status: Patient denies any tobacco usage or history of. ROS: 23:42 Constitutional: Negative for fever, chills, and weight loss. kb 23:42 Abdomen/GI: Positive for nausea, vomiting, and diarrhea, abdominal cramps. 23:42 All other systems are negative. Exam: 23:42 Constitutional: This is a well developed, well nourished patient who is awake, alert, kb and in no acute distress. Head/Face: Normocephalic, atraumatic. ENT: Moist Mucous membranes Cardiovascular: Regular rate and rhythm with a normal S1 and S2. No gallops, murmurs, or rubs. No pulse deficits. Respiratory: Respirations even and unlabored. No increased work of breathing, no retractions or nasal flaring. Skin: Warm, dry with normal turgor. Normal color. MS/ Extremity: Pulses equal, no cyanosis. Neurovascular intact. Full, normal range of motion. Neuro: Awake and alert, GCS 15, oriented to person, place, time, and situation. Moves all extremities. Normal gait. Psych: Awake, alert, with orientation to person, place and time. Behavior, mood, and affect are within normal limits. 23:42 Abdomen/GI: Inspection: abdomen appears normal, Bowel sounds: normal, in all quadrants, Palpation: soft, in all quadrants, mild abdominal tenderness, in all quadrants. Vital Signs: 21:39 BP 119 / 88; Pulse 116; Resp 18; Temp 97.6; Pulse Ox 99% on R/A; Weight 88.45 kg; iw Height 5 ft. 5 in. (165.10 cm); 23:15 BP 109 / 45; Pulse 104; Resp 17 S; Pulse Ox 96% on R/A; ad5 21:39 Body Mass Index 32.45 (88.45 kg, 165.10 cm) iw MDM: 21:45 Patient medically screened. kb 23:43 Data reviewed: vital signs, nurses notes. Data interpreted: Pulse oximetry: on room air kb is 96 %. Interpretation: normal. Counseling: I had a detailed discussion with the patient and/or guardian regarding: the historical points, exam findings, and any diagnostic results supporting the discharge/admit diagnosis, lab results, the need for outpatient follow up, a family practitioner, to return to the emergency department if symptoms worsen or persist or if there are any questions or concerns that arise at home. 10/07 21:49 Order name: Basic Metabolic Panel kb 10/07 21:49 Order name: CBC with Diff; Complete Time: 23:27 kb 10/07 21:49 Order name: Hepatic Function; Complete Time: 23:45 kb 10/07 21:49 Order name: Lipase; Complete Time: 23:45 kb 10/07 21:49 Order name: Basic Metabolic Panel; Complete Time: 23:45 EDMS 10/07 21:49 Order name: IV Saline Lock; Complete Time: 22:11 kb 10/07 21:49 Order name: Labs collected and sent; Complete Time: 22:11 kb Administered Medications: 22:11 Drug: NS 0.9% 1000 ml Route: IV; Rate: 1000 ml; Site: left forearm; ad5 10/08 00:04 Follow up: IV Status: Completed infusion; IV Intake: 1000ml ad5 10/07 22:11 Drug: Zofran (Ondansetron) 4 mg Route: IVP; Site: left forearm; ad5 23:14 Follow up: Response: No adverse reaction; Nausea is decreased ad5 22:25 Drug: Bentyl (dicyclomine) 20 mg Route: PO; ad5 10/08 00:04 Follow up: Response: No adverse reaction; Marked relief of symptoms ad5 00:10 Drug: Zofran (Ondansetron) 4 mg Route: IVP; Site: left forearm; ad5 Disposition: 04:24 Co-signature as Attending Physician, Benjie Redman MD. 7 Disposition: 10/07/20 23:48 Discharged to Home. Impression: Nausea and vomiting, Diarrhea, unspecified. - Condition is Stable. - Discharge Instructions: Food Choices to Help Relieve Diarrhea, Adult, Food Poisoning, [id number]. - Prescriptions for Zofran ODT 4 mg Oral tablet,disintegrating - place 1 tablet by TRANSLINGUAL route every 6 hours As needed; 20 tablet. Bentyl 20 mg Oral Tablet - take 1 tablet by ORAL route every 6 hours As needed; 20 tablet. - Medication Reconciliation Form, Thank You Letter, Antibiotic Education, Prescription Opioid Use form. - Follow up: Emergency Department; When: As needed; Reason: Worsening of condition. Follow up: Private Physician; When: 2 - 3 days; Reason: Recheck today's complaints, Continuance of care, Re-evaluation by your physician. Signatures: Dispatcher [employer] EDSveta Dodge, AMINAC METAL CASKET ASSEMBLER-Amber Mensah RN RN iw Benjie Redman MD MD 7 Bowen Jose ad5 Corrections: (The following items were deleted from the chart) 00:14 10/07 23:48 10/07/2020 23:48 Discharged to Home. Impression: Nausea and vomiting; ad5 Diarrhea, unspecified. Condition is Stable. Forms are Medication Reconciliation Form, Thank You Letter, Antibiotic Education, Prescription Opioid Use. Follow up: Emergency Department; When: As needed; Reason: Worsening of condition. Follow up: Private Physician; When: 2 - 3 days; Reason: Recheck today's complaints, Continuance of care, Re-evaluation by your physician. kb
[2020-10-08] MEDS ORDERED: ONDANSETRON 4 MG/2 ML VIAL ONE (00:25)
[2020-10-08 00:45] VITALS: TEMP 97.6
[2020-10-08 00:47] VITALS: BP 109/45; O2SAT 96
== END 2020-10-08 00:14 | disposition home or self-care (01) ==
LOC: ER 21:24
DX: R19.7 Diarrhea, unspecified (principal); F41.9 Anxiety disorder, unspecified
CPT/HCPCS: 96361; 85025; 80048; 36415; 80076; 83690; 96374; 99284; J7030; J2405 ×2

== ENCOUNTER 2020-11-27 19:25 | Emergency (ER) | payer BC ==
--- OUTSIDE RECORDS SUMMARY | 2020-11-27 19:31 | XMS REPORT | Continuity of Care Document ---
:1975 Author Organization [facility] t Address [address] [place] [address] Care Team Providers Name Role Phone Radiology Attending Clinician Unavailable Problems This patient has no known problems. Allergies, Adverse Reactions, Alerts This patient has no known allergies or adverse reactions. Medications This patient has no known medications. Procedures This patient has no known procedures. Encounters Start End Encounter Admission Attending Care Care Encounter Source Date/Time Date/Time Type Type Clinicians Facility Department ID 2020-11-21 2020-11-21 Outpatient [facility] [id number] [facility] [place] 00:00:00 [facility]:00:00 [facility] 2020-10-31 2020-10-31 Outpatient [facility] [id number] [place] 00:00:00 00:00:00 [facility] 2020-10-25 2020-10-25 Outpatient [facility] [id number] [place] [place] 00:00:00 00:00:00 [facility] 2020-09-26 2020-09-26 Outpatient [facility] [id number] [facility] 2020-09-08 2020-09-08 Outpatient [facility] [id number] [place] [place] 00:00:00 [facility]00:00 [facility] 2020-08-29 2020-08-29 [id number] 2020-08-15 2020-08-15 [facility] [id number] 2019-12-24 2019-12-24 [facility] Radiology [facility] [id number] 12:43:00 23:59:00 Encounter [place] [id number] [place] [id number] [place] [id number] 2019-12-16 2019-12-16 [facility] Radiology [facility] [id number] 10:30:00 23:59:00 Encounter [place] [id number] [place] [id number] [place] [id number] 2019-08-01 2019-08-01 Emergency E [facility] BL [id number] BL 13:27:00 13:27:00 Results This patient has no known results.
[2020-11-27] MEDS ORDERED: FENTANYL CITR 100 MCG/2 ML ONE (21:15)
[2020-11-27] MEDS ORDERED: LIDOCAINE 4% PATCH ONE (21:16)
[2020-11-27] MEDS ORDERED: DIAZEPAM 10 MG/2 ML INJ SYRINGE ONE (21:16)
[2020-11-27] MEDS ORDERED: ONDANSETRON 4 MG/2 ML VIAL ONE (21:16)
[2020-11-27] MEDS ORDERED: MORPHINE 4 MG/ML SYR ONE (22:07)
--- NOTE | 2020-11-27 22:30 | ER ---
Nurse's Notes [facility] Name: Isma Castillo Age: 45 yrs Sex: Female : 1975 Arrival Date: 11/27/2020 Time: 19:28 Bed 17 Private MD: Diagnosis: Cervical disc disorder with radiculopathy Presentation: 11/27 19:32 Chief complaint: Patient states: Am scheduled for a neck surgery in couple weeks for 6 ca1 herniated disc on my neck. About 1.5 hours ago, I turned my neck to the left then now am in pain and stiff. Pain shoots down my L arm and L thumb. Coronavirus screen: Client denies travel out of the [place] in the last 14 days. At this time, the client does not indicate any symptoms associated with coronavirus-19. Ebola Screen: Patient negative for fever greater than or equal to 101.5 degrees Fahrenheit, and additional compatible Ebola Virus Disease symptoms Patient denies exposure to infectious person. Patient denies travel to an Ebola-affected area in the 21 days before illness onset. No symptoms or risks identified at this time. Initial Sepsis Screen: Does the patient meet any 2 criteria? No. Patient's initial sepsis screen is negative. Does the patient have a suspected source of infection? No. Patient's initial sepsis screen is negative. Risk Assessment: Do you want to hurt yourself or someone else? Patient reports no desire to harm self or others. Onset of symptoms was November 27, 2020. 19:32 Method Of Arrival: Ambulatory ca1 19:32 Acuity: ZAKI 4 ca1 Triage Assessment: 21:13 General: Appears in no apparent distress. Behavior is calm, cooperative. Pain: ak2 Complains of pain in scalp. 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 - Social history:: Smoking status: Patient denies any tobacco usage or history of. Screenin:12 Abuse screen: Denies threats or abuse. Denies injuries from another. Nutritional ak2 screening: No deficits noted. Tuberculosis screening: No symptoms or risk factors identified. Fall Risk None identified. Assessment: 21:14 Neuro: Level of Consciousness is awake, alert, obeys commands, Oriented to person, ak2 place, time, situation. Cardiovascular: No deficits noted. Respiratory: No deficits noted. Vital Signs: 19:32 BP 140 / 104; Pulse 90; Resp 18 S; Temp 97.4(TE); Pulse Ox 98% on R/A; Weight 88.45 kg ca1 (R); Height 5 ft. 5 in. (165.10 cm) (R); Pain 8/10; 22:34 BP 113 / 76; Pulse 71; Resp 20; Pulse Ox 100% on R/A; ak2 19:32 Body Mass Index 32.45 (88.45 kg, 165.10 cm) ca1 ED Course: 19:28 Patient arrived in ED. bp1 19:35 Triage completed. ca1 19:36 Arm band placed on right wrist. ca1 20:29 Arturo Rojas NP is PHCP. pm1 20:29 Salvatore Porras MD is Attending Physician. pm1 20:50 Demond Hyatt is Primary Nurse. ak2 21:12 Patient has correct armband on for positive identification. ak2 21:12 No provider procedures requiring assistance completed. Inserted saline lock: 20 gauge ak2 in right forearm, using aseptic technique. Administered Medications: 21:08 Drug: Lidoderm Patch 5 % (700 mg/patch) 1 patches Route: Topical; Site: affected area; ak2 22:33 Follow up: Response: Pain is decreased ak2 21:08 Drug: Zofran (Ondansetron) 4 mg Route: IVP; Site: right forearm; ak2 21:09 Drug: Valium (diazepam) 5 mg Route: IVP; Site: right forearm; ak2 22:33 Follow up: Response: Pain is decreased ak2 21:09 Drug: fentaNYL (PF) 25 mcg Route: IVP; Site: right forearm; ak2 22:33 Follow up: Response: Pain is decreased ak2 21:47 Drug: morphine 4 mg Route: IVP; Site: right forearm; ak2 22:33 Follow up: Response: Pain is decreased ak2 22:19 Drug: Ketorolac 30 mg Route: IVP; Site: right forearm; ak2 22:33 Follow up: Response: Pain is decreased ak2 22:32 Drug: Decadron - Dexamethasone 10 mg Route: IVP; Site: right forearm; ak2 Outcome: 22:30 Discharge ordered by . pm1 22:54 Discharged to home ambulatory. ak2 22:54 Condition: good 22:54 Discharge instructions given to patient, family, Prescriptions given X 22:54 Patient left the ED. ak2 Signatures: Arturo Rojas NP ENGINEERING TEAM SUPERVISOR pm1 Brooke Gonzalez RN RN ca1 Sia Lawrence Anthony ak2
--- NOTE | 2020-11-27 22:30 | EDPHYS ---
Physician Documentation [facility] Name: Isma Castillo Age: 45 yrs Sex: Female : 1975 Arrival Date: 11/27/2020 Time: 19:28 Bed 17 Private MD: ED Physician Salvatore Porras HPI: 11/27 20:39 This 45 yrs old Female presents to ER via Ambulatory with complaints of Neck pm1 Pain, <24hrs Old. 20:39 The patient or guardian complains of pain. The symptoms are located on the left pm1 trapezius. Onset: The symptoms/episode began/occurred today. Context: The problem was sustained at work, The neck injury/problem resulted from turning her head to left side after a loud sound startled her. Associated signs and symptoms: Pertinent positives: pain radiation to left arm. 20:39 Associated signs and symptoms: Pertinent negatives: numbness, tingling, weakness. pm1 Modifying factors: The symptoms are alleviated by remaining still, the symptoms are aggravated by movement. Severity of symptoms: in the emergency department the symptoms are unchanged. The patient has experienced similar episodes in the past, chronically, but today's symptoms are worse, more painful. The patient has not recently seen a physician, has planned neck surgery in the next two weeks to address herniated cervical disks. Patient currently taking a muscle relaxant and tramadol from pain management for her chronic neck pain. 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 - Social history:: Smoking status: Patient denies any tobacco usage or history of. ROS: 20:39 Constitutional: Negative for fever, chills, and weight loss. pm1 20:39 Cardiovascular: Negative for chest pain, palpitations, and edema, Respiratory: Negative for shortness of breath, cough, wheezing, and pleuritic chest pain. 20:39 Back: Negative for injury and pain, MS/Extremity: Negative for injury and deformity, Skin: Negative for injury, rash, and discoloration. 20:39 Neck: Positive for pain with movement, pain at rest. 20:39 Abdomen/GI: Positive for nausea, Negative for abdominal pain, vomiting, diarrhea. 20:39 Neuro: Negative for headache, numbness, tingling, weakness, to arms. 20:39 All other systems are negative. Exam: 20:39 Constitutional: This is a well developed, well nourished patient who is awake, alert, pm1 and in no acute distress. Head/Face: Normocephalic, atraumatic. 20:39 Skin: Warm, dry with normal turgor. Normal color with no rashes, no lesions, and no evidence of cellulitis. MS/ Extremity: Pulses equal, no cyanosis. Neurovascular intact. Full, normal range of motion. 20:39 Eyes: Exam is negative for acute changes, Extraocular movements: no acute changes, Conjunctiva: no acute changes, no injection, Sclera: no acute changes, icterus, is not appreciated. 20:39 Neck: External neck: tenderness, of the left trapezius, ROM/movement: pain, with any movement. 20:39 Cardiovascular: Rate: normal, Rhythm: regular, Pulses: no pulse deficits are appreciated. 20:39 Respiratory: Exam negative for acute changes, respiratory distress, shortness of breath. 20:39 Neuro: Exam negative for acute changes, Orientation: is normal, Mentation: is normal, Motor: is normal, moves all fours, strength is 5/5 in all extremities, Sensation: no obvious gross deficits, numbness, is not appreciated, of the left hand, tingling, is not appreciated, of the left hand. Vital Signs: 19:32 BP 140 / 104; Pulse 90; Resp 18 S; Temp 97.4(TE); Pulse Ox 98% on R/A; Weight 88.45 kg ca1 (R); Height 5 ft. 5 in. (165.10 cm) (R); Pain 8/10; 22:34 BP 113 / 76; Pulse 71; Resp 20; Pulse Ox 100% on R/A; ak2 19:32 Body Mass Index 32.45 (88.45 kg, 165.10 cm) ca1 MDM: 20:38 Patient medically screened. pm1 22:27 ED course: patient reports significant improvement in her pain and she is ready to go pm1 home. She is requesting a steroid prescription. Will give steroid here and discharge with prescription. 22:48 Data reviewed: vital signs. Data interpreted: Pulse oximetry: on room air is 100 %. pm1 Interpretation: normal. 11/27 20:39 Order name: IV Saline Lock pm1 Administered Medications: 21:08 Drug: Lidoderm Patch 5 % (700 mg/patch) 1 patches Route: Topical; Site: affected area; ak2 22:33 Follow up: Response: Pain is decreased ak2 21:08 Drug: Zofran (Ondansetron) 4 mg Route: IVP; Site: right forearm; ak2 21:09 Drug: Valium (diazepam) 5 mg Route: IVP; Site: right forearm; ak2 22:33 Follow up: Response: Pain is decreased ak2 21:09 Drug: fentaNYL (PF) 25 mcg Route: IVP; Site: right forearm; ak2 22:33 Follow up: Response: Pain is decreased ak2 21:47 Drug: morphine 4 mg Route: IVP; Site: right forearm; ak2 22:33 Follow up: Response: Pain is decreased ak2 22:19 Drug: Ketorolac 30 mg Route: IVP; Site: right forearm; ak2 22:33 Follow up: Response: Pain is decreased ak2 22:32 Drug: Decadron - Dexamethasone 10 mg Route: IVP; Site: right forearm; ak2 Disposition: 11/28 01:59 Co-signature as Attending Physician, Salvatore Porras MD. pkl Disposition Summary: 11/27/20 22:30 Discharge Ordered Location: Home pm1 Problem: new pm1 Symptoms: have improved pm1 Condition: Stable pm1 Diagnosis - Cervical disc disorder with radiculopathy pm1 Followup: pm1 - With: Emergency Department - When: As needed - Reason: Worsening of condition Followup: pm1 - With: Private Physician - When: 2 - 3 days - Reason: Recheck today's complaints, Continuance of care, Re-evaluation by your physician Discharge Instructions: - Discharge Summary Sheet pm1 - Cervical Radiculopathy pm1 - Herniated Disk pm1 Forms: - Medication Reconciliation Form pm1 - Thank You Letter pm1 - Antibiotic Education pm1 - Prescription Opioid Use pm1 Prescriptions: - Medrol (Anibal) 4 mg Oral Tablets, Dose Pack - take 1 tablet by ORAL route as directed - follow package instructions; 1 pm1 packet; Refills: 0, Product Selection Permitted Signatures: Salvatore Porras MD MD pkl Arturo Rojas, BRICKLAYER APPRENTICE BRICKLAYER APPRENTICE pm1 Brooke Gonzalez RN RN ca1 Demond Hyatt sd2
[2020-11-27] MEDS ORDERED: KETOROLAC 30 MG/ML INJ ONE (22:39)
[2020-11-27] MEDS ORDERED: dexAMETHasone 10 MG/ML VIAL ONE (22:51)
[2020-11-27 23:08] VITALS: TEMP 97.4
[2020-11-27 23:09] VITALS: BP 113/76; O2SAT 100
== END 2020-11-27 22:54 | disposition home or self-care (01) ==
LOC: ER 19:25
DX: M50.10 Cervical disc disorder with radiculopathy, unspecified cervical region (principal); G89.29 Other chronic pain; F41.9 Anxiety disorder, unspecified
CPT/HCPCS: 96375; 96374; 99283; J3360; J3010; J1100; J2405

== ENCOUNTER 2021-05-31 13:34 | Emergency (ER) | payer BC ==
--- OUTSIDE RECORDS SUMMARY | 2021-05-31 13:36 | XMS REPORT | Continuity of Care Document ---
:1975 Author Organization [facility] t Address [address] [place] [address] Care Team Providers Name Role Phone Radiology Attending Clinician Unavailable RADIOLOGY Attending Clinician Unavailable MELI MACEDO Attending Clinician Unavailable Payers Payer Name Policy Type Policy Number Effective Date Expiration Date S ource Problems This patient has no known problems. Allergies, Adverse Reactions, Alerts Allergy Allergy Status Severity Reaction(s) Onset Inactive Treating Comm ents Source Name Type Date Date Clinician NO KNOWN Drug Active Univers ALLERGIE Class ity of [facility] Social History Social Habit Start Date Stop Date Quantity Comments Source History of tobacco Cigarette Smoker [facility] use [facility] Sex Assigned At [facility] Branch Exposure to Not sure [facility] SARS-CoV-2 (event) Medica l Branch Smoking Status Start Date Stop Date Source Former smoker 2019-08-28 00:00:00 2019-08-28 00:00:00 [facility] Medications Ordered Filled Start Stop Current Ordering Indication Dosage Frequency Signature Comments Components Source Medication Medication Date Date Medication? Clinician (SIG) Name Name BACLOFEN 2019-0 Yes Take by Unive rs ORAL 4-03 mouth. ity of 15:34: [address] BACLOFEN 2019-0 Yes Take by Unive rs ORAL 4-03 mouth. ity of 15:34: [address] citalopram 2019-0 Yes Take by Uni vers hydrobromid 4-03 mouth. ity of e (CELEXA 15:34: [place] ORAL) 10 Medical Branch eszopiclone 0 Yes Take by Un gage (LUNESTA 4-03 mouth. ity of ORAL) 15:34: [place] [address] Medical Branch citalopram 0 Yes Take by Uni vers hydrobromid 4-03 mouth. ity of e (CELEXA 15:34: [place] ORAL) 10 Medical Branch eszopiclone Yes Take by Un gage (LUNESTA 4-03 mouth. ity of ORAL) 15:34: [place] [address] Medical Branch albuterol Yes 2{puff} Inhale 2 U nivers 90 4-03 Puffs ity of mcg/actuati 15:34: every 6 Kash as on inhaler 09 (six) Medical hours as Branch needed for Wheezing or Shortness of Breath. albuterol Yes 2{puff} Inhale 2 U nivers 90 4-03 Puffs ity of mcg/actuati 15:34: every 6 Kash as on inhaler 09 (six) Medical hours as Branch needed for Wheezing or Shortness of Breath. Procedures Procedure Date / Time Performed Performing Clinician [facility] e BI ULTRASOUND BREAST 2019-12-24 18:37:59 Requisition, Paper [facility] LIMITED RIGHT Medical Branch BI SELF-REFERRED 2019-12-16 16:15:00 Adrien Murray [facility] SCREENING MAMMOGRAM Medical Bran ch BILATERAL Encounters Start End Encounter Admission Attending Care Care Encounter Source Date/Time Date/Time Type Type Clinicians Facility Department ID 2021-04-25 2021-04-25 ambulatory [facility] [id number] [facility] 2021-04-10 2021-04-10 ambulatory [facility] [id number] [facility] 2021-03-17 2021-03-17 Outpatient [facility] [id number] [facility] 2021-02-14 2021-02-14 Outpatient [facility] [id number] [facility] 2021-02-13 2021-02-13 Outpatient [facility] [id number] [facility] 2021-01-25 2021-01-25 Outpatient [facility] [id number] [facility] 2021-01-23 2021-01-23 Outpatient [facility] [id number] [facility] 2020-12-19 2020-12-19 Outpatient [facility] [id number] [facility] 2020-11-21 2020-11-21 Outpatient [facility] [id number] [facility] 2020-10-31 2020-10-31 Outpatient [facility] [id number] [facility] 2020-10-25 2020-10-25 Outpatient [facility] [id number] [facility] 2020-09-26 2020-09-26 Outpatient [facility] [id number] [facility] 2020-09-08 2020-09-08 Outpatient [facility] [id number] [facility] 2020-08-29 2020-08-29 Outpatient [facility] [id number] [facility] 2020-08-15 2020-08-15 Outpatient [facility] [id number] [facility] 2019-12-24 2019-12-24 [facility] Radiology [facility] [id number] 12:43:00 23:59:00 Encounter [place] [id number] [place] [id number] [place] [id number] 2019-12-24 2019-12-24 [facility] Radiology [facility] [id number] Univers 12:43:00 23:59:00 Encounter [place] [id number] ity of [place] [id number] [facility] [id number] [facility] 806 Branch 2019-12-24 2019-12-24 Outpatient [facility] [id number] Univers 13:00:00 13:00:00 [id number] ity of [facility] 2019-12-24 2019-12-24 Outpatient R RADIOLOGY [facility] [id number] Univers 00:00:00 00:00:00 ity of [facility] 2019-12-16 2019-12-16 [facility] Radiology [facility] [id number] 10:30:00 23:59:00 Encounter [place] [id number] [place] [id number] [place] [id number] 800 2019-12-16 2019-12-16 [facility] Radiology [facility] [id number] Univers 10:30:00 23:59:00 Encounter [place] [id number] ity of [place] [id number] [facility] [id number] [facility] 800 Branch 2019-12-16 2019-12-16 Outpatient R RADIOLOGY [facility] [id number] Univers 00:00:00 00:00:00 ity of [facility] 2019-08-01 2019-08-01 Emergency E [place], BL BL [id number] BL 13:27:00 15:30:00 EMERITA Results Test Description Test Time Test Comments Results Result Sour e Comments BI ULTRASOUND 2019-11-27 Impression:No Universi ty of BREAST LIMITED 0 worrisome solid mass [place] [facility] RIGHT 18:41:32 detected. Branch Recommendation:Hector l mammographic follow-up - Right BI-RADS Category:Right 2 - Benign Examination:BI ULTRASOUND BREAST LIMITED RIGHT History:Patient is 44 year old and is seen for: ?14 mm asymmetrical density inlower inner right breast, could be normal dense tissue, however, since thisis baseline study, i request ultrasound study of lower inner right breastto rule out any solid mass.. Comparisons: 12/16/2019 BI SELF-REFERRED SCREENING MAMMOGRAM BILATERAL Findings:There is no evidence of suspicious masses or other abnormal findings in theright breast. [facility], Radiant Results Inft User - 12/24/2019 1:42 PM CDTExamination:BI ULTRASOUND BREAST LIMITED RIGHTHistory:Patient is 44 year old and is seen for: 14 mm asymmetrical density inlower inner right breast, could be normal dense tissue, however, since thisis baseline study, i request ultrasound study of lower inner right breastto rule out any solid mass.. Comparisons: 12/16/2019 BI SELF-REFERRED SCREENING MAMMOGRAM BILATERAL Findings:There is no evidence of suspicious masses or other abnormal findings in theright breast.IMPRESSIONImp ression:No worrisome solid mass detected.Recommendat ion:Annual mammographic follow-up - RightBI-RADS Category:Right 2 - Benign BI SELF-REFERRED 2019-11-26 Examination:BI Univ ersity of SCREENING 2 SELF-REFERRED [place] [facility] MAMMOGRAM 17:25:47 SCREENING MAMMOGRAM Branc h BILATERAL BILATERAL History:Patient is 44 year old and is seen for: ?Screening mammogram, encounter for. Computer-aided detection (CAD) utilized. Comparisons : None available Findings:The breasts are heterogeneously dense, which may obscure small masses. RightThere is a focal asymmetry seen in the lower inner quadrant of the right breast in the middle depth, 11.3 cm from the nipple on the CC view. LeftThere is no evidence of suspicious masses, calcifications, or other abnormal findings in the left breast. Impression:14 mm asymmetrical density in lower inner RIGHT breast, could be normal dense tissue, however, since this is baseline study, I request ultrasound study of lower inner RIGHT breast to rule out any solid mass. Recommendation:Hector l mammographic follow-up - LeftUltrasound - Right BI-RADS Category: Left: 2 - BenignRight: 0 - Incomplete: Needs Additional Imaging EvaluationOverall: 0 - Incomplete: Needs Additional Imaging Evaluation
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
[2021-05-31] MEDS ORDERED: HYDROCODONE/APAP 10/325 TAB ONE (15:23)
--- NOTE | 2021-05-31 16:16 | RAD REPORT ---
EXAM DESCRIPTION: RAD - Hip Left 2 View - 05/31/2021 3:45 pm CLINICAL HISTORY: Left hip pain FINDINGS: Lucency overlies the greater trochanter of the left femur. This could represent nondisplac ed fracture or prominent trabecula. If clinically indicated further evaluation with CT could be obtai franco No dislocation
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
--- NOTE | 2021-05-31 17:01 | RAD REPORT ---
EXAM DESCRIPTION: CT - Hip Left Wo Con - 05/31/2021 4:52 pm CLINICAL HISTORY: Left hip pain status post fall COMPARISON: May 30, 2018 x-ray TECHNIQUE: Computed axial tomography left hip obtained with coronal and sagittal reconstruction. All CT scans are performed using dose optimization technique as appropriate and may include automated exposure control or mA/KV adjustment according to patient size. FINDINGS: No fracture is seen. No dislocation Several small sclerotic foci within the femoral head are nonspecific but probably benign. No significant joint effusion. The muscles are normal size and density IMPRESSION: No fracture seen
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
[2021-05-31 17:34] VITALS: BP 122/63; TEMP 98.3; O2SAT 99
== END 2021-05-31 17:21 | disposition home or self-care (01) ==
LOC: ER 13:34
DX: M25.552 Pain in left hip (principal); M79.642 Pain in left hand; M79.10 Myalgia, unspecified site; V40.0XXA Car driver injured in collision with pedestrian or animal in nontraffic accident, initial encounter; Y93.89 Activity, other specified; Y92.410 Unspecified street and highway as the place of occurrence of the external cause
CPT/HCPCS: 70450; 72125; 73700; 99284

== ENCOUNTER 2021-07-07 09:50 | Emergency (ER) | payer BC ==
--- OUTSIDE RECORDS SUMMARY | 2021-07-07 09:53 | XMS REPORT | Continuity of Care Document ---
:1975 Author Organization [facility] t Address [address] [place] [address] Care Team Providers Name Role Phone Rogelio Pitts Attending Clinician Unavailable Radiology Attending Clinician Unavailable RADIOLOGY Attending Clinician Unavailable MELI MACEDO Attending Clinician Unavailable Payers Payer Name Policy Type Policy Number Effective Date Expiration Date S ource Problems This patient has no known problems. Allergies, Adverse Reactions, Alerts Allergy Allergy Status Severity Reaction(s) Onset Inactive Treating Comm ents Source Name Type Date Date Clinician NO KNOWN Drug Active Univers ALLERGIE Class ity of [facility] Social History Social Habit Start Date Stop Date Quantity Comments Source History of tobacco Cigarette Smoker [facility] use [facility] Sex Assigned At [facility] Branch Exposure to Not sure [facility] SARS-CoV-2 (event) Medica l Branch Smoking Status Start Date Stop Date Source Former smoker 2019-08-28 00:00:00 2019-08-28 00:00:00 [facility] Medications Ordered Filled Start Stop Current Ordering Indication Dosage Frequency Signature Comments Components Source Medication Medication Date Date Medication? Clinician (SIG) Name Name BACLOFEN 0 Yes Take by Unive rs ORAL 4-03 mouth. ity of 15:34: [address] BACLOFEN 2019-0 Yes Take by Unive rs ORAL 4-03 mouth. ity of 15:34: [address] citalopram 2020-0 Yes Take by Uni vers hydrobromid 4-03 mouth. ity of e (CELEXA 15:34: [place] ORAL) 10 [facility] eszopiclone 0 Yes Take by Un gage (LUNESTA 4-03 mouth. ity of ORAL) 15:34: [place] [address] Medical Branch citalopram 0 Yes Take by Uni vers hydrobromid 4-03 mouth. ity of e (CELEXA 15:34: [place] ORAL) 10 [facility] Branch eszopiclone Yes Take by Un gage (LUNESTA 4-03 mouth. ity of ORAL) 15:34: [place] [address] Medical Branch albuterol Yes 2{puff} Inhale 2 [...] Procedure Date / Time Performed Performing Clinician [facility] e BI ULTRASOUND BREAST 2019-12-24 18:37:59 Requisition, Paper [facility] RIGHT Medical Branch BI SELF-REFERRED 2019-12-16 16:15:00 Adrien Murray [facility] SCREENING MAMMOGRAM Medical Bran ch BILATERAL Encounters Start End Encounter Admission Attending Care Care Encounter Source Date/Time Date/Time Type Type Clinicians Facility Department ID 2021-06-21 Outpatient Pitts, [facility] 14:28:30 [place] [id number] [facility] 2021-06-21 Outpatient Pitts, [facility] 14:26:46 [place] [id number] [facility] 2021-06-21 Outpatient Pitts, [facility] 13:29:55 [place] [id number] [facility] 2021-06-21 Outpatient Pitts, [facility] 13[facility]20:25 [place] [id number] [facility] 2021-06-21 Outpatient Pitts, [facility] 13:19:12 [place] [id number] [facility] 2021-06-21 Outpatient Pitts, [facility] 12:58:21 [place] [id number] [facility] 2021-06-21 Outpatient Pitts, [facility] 12:47:39 [place] [id number] [facility] 2021-06-21 Outpatient Pitts, [facility] 12:47:28 [place] [id number] [facility] 2021-06-21 Outpatient Pitts, [facility] 12[facility]42:29 [place] [id number] [facility] 2021-06-29 2021-06-29 ambulatory [facility] [id number] [facility] 2021-06-27 2021-06-27 ambulatory [facility] [id number] [facility] 2021-04-25 2021-04-25 ambulatory [facility] [id number] [facility] 2021-04-10 2021-04-10 ambulatory [facility] [id number] [facility] 2021-03-17 2021-03-17 Outpatient [facility] [id number] [facility] 2021-02-14 2021-02-14 Outpatient [facility] [id number] [facility] 2021-02-13 2021-02-13 Outpatient [facility] [id number] [facility] 2021-01-25 2021-01-25 Outpatient [facility] [id number] [facility] 2021-01-23 2021-01-23 Outpatient [facility] [id number] [facility] 2020-12-19 2020-12-19 Outpatient [facility] [id number] [facility] 2020-11-21 2020-11-21 Outpatient [facility] [id number] [facility] 2020-10-31 2020-10-31 Outpatient [facility] [id number] [facility] 2020-10-25 2020-10-25 Outpatient [facility] [id number] [facility] 2020-09-26 2020-09-26 Outpatient [facility] [id number] [facility] 2020-09-08 2020-09-08 Outpatient [facility] [id number] [facility] 2020-08-29 2020-08-29 Outpatient [facility] [id number] [facility] 2020-08-15 2020-08-15 Outpatient [facility] [id number] 2019-12-24 2019-12-24 Hospital Radiology [facility] [id number] 12:43:00 23:59:00 Encounter [place] [id number] [place] [id number] [place] [id number] 2019-12-24 2019-12-24 [facility] Radiology [facility] [id number] Univers 12:43:00 23:59:00 Encounter [place] [id number] ity of [place] [id number] [facility] [id number] [facility] 8[address] Branch 2019-12-24 2019-12-24 Outpatient [facility] [id number] Univers 13:00:00 13:00:00 [id number] ity of [facility] 2019-12-24 2019-12-24 Outpatient R RADIOLOGY [facility] [id number] Univers 00:00:00 00:00:00 ity of [facility] 2019-12-16 2019-12-16 [facility] Radiology [facility] [id number] 10:30:00 23:59:00 Encounter [place] [id number] [place] [id number] [place] [id number] 2019-12-16 2019-12-16 [facility] Radiology [facility] [id number] Univers 10:30:00 23:59:00 Encounter [place] [id number] ity of [place] [id number] [facility] [id number] [facility] [address] [place] 2019-12-16 2019-12-16 Outpatient R RADIOLOGY [facility] [id number] Univers 00:00:00 00:00:00 ity of [facility] 2019-08-01 2019-08-01 Emergency E [place], BL BL [id number] BL 13:27:00 15:30:00 EMERITA Results Test Description Test Time Test Comments Results Result Sour e Comments BI ULTRASOUND 2019-11-27 Impression:No Universi ty of BREAST LIMITED [address] [facility] RIGHT 18:41:32 detected. Branch Recommendation:Hector jimenez mammographic follow-up - Right BI-RADS Category:Right 2 [...] Examination:BI Univ ersity of SCREENING 2 SELF-REFERRED [facility] al MAMMOGRAM 17:25:47 SCREENING MAMMOGRAM Branc h [...] breast to rule out any solid mass. Recommendation:Annua l mammographic follow-up - LeftUltrasound - Right BI-RADS Category: Left: 2 - BenignRight: 0 - Incomplete: Needs Additional Imaging EvaluationOverall: 0 - Incomplete: Needs Additional Imaging Evaluation
[2021-07-07] MEDS ORDERED: METHYLPREDNISOLONE 125 MG INJ ONE (10:07)
[2021-07-07] MEDS ORDERED: MAGNESIUM SULFATE 1 gm IVPB 1 GM/100 ML BAG IV ONE (10:08)
--- NOTE | 2021-07-07 10:38 | RAD REPORT ---
EXAM DESCRIPTION: RAD - Chest Single View - 07/07/2021 10:30 am CLINICAL HISTORY: DYSPNEA Chest pain. COMPARISON: Chest Single View dated 03/06/2019 FINDINGS: Portable technique limits examination quality. The lungs are grossly clear. The heart is normal in size. No displaced fractures. IMPRESSION: No acute intrathoracic process suspected.
[2021-07-07 10:44] LABS: Absolute Lymphocytes (CBC) 2.6 K/uL (0.7-4.9); Hematocrit 40.9 % (36.0-45.0); Lymphocytes % 39.8 % (15.3-44.8); MPV 8.5 fL (7.6-11.3); RBC Red Blood Cell Count 4.58 M/uL (3.86-4.86)
[2021-07-07 10:51] LABS: Protime INR 0.99
[2021-07-07 11:04] LABS: ALT/SGPT 25 U/L (12-78); Albumin 3.3 g/dL (3.4-5.0); Alkaline Phosphatase 95 U/L (45-117); BUN Blood Urea Nitrogen 11 mg/dL (7-18); Bicarbonate 24 mmol/L (21-32); Bilirubin Direct 0.2 mg/dL (0-0.2); Bilirubin Total 0.5 mg/dL (0.2-1.0); Glucose Level 148 mg/dL (74-106); Lipase 363 U/L (73-393); Potassium 3.4 mmol/L (3.5-5.1); Sodium Level 139 mmol/L (136-145)
--- NOTE | 2021-07-07 11:40 | RAD REPORT ---
EXAM DESCRIPTION: CT - Chest For Pe Angio - 07/07/2021 11:24 am CLINICAL HISTORY: Chest pain. DYSPNEA COMPARISON: No comparisons TECHNIQUE: CT angiogram of the pulmonary arteries was performed with MIP. All CT scans are performed using dose optimization technique as appropriate and may include automated exposure control or mA/KV adjustment according to patient size. FINDINGS: No evidence of pulmonary thromboembolism. No acute aortic finding demonstrated. The lungs are clear. No significant pericardial or pleural fluid. No concerning bony finding. Fatty liver. IMPRESSION: No evidence of pulmonary thromboembolism. No acute lung findings.
[2021-07-07 11:42] LABS: AST/SGOT 17 U/L (15-37); Ferritin 70.2 ng/mL (8-388); Protein, Total 6.9 g/dL (6.4-8.2)
[2021-07-07 11:52] LABS: C-Reactive Protein < 2.90 mg/L (<3.00)
--- NOTE | 2021-07-07 12:47 | EDPHYS ---
Physician Documentation [facility] Name: Isma Castillo Age: 46 yrs Sex: Female : 1975 Arrival Date: 07/07/2021 Time: 09:54 Bed 14 Private MD: ED Physician Hollis Toussaint HPI: 07/07 12:45 This 46 yrs old Female presents to ER via EMS with complaints of cough, shortness of kb breath. 12:45 The patient or guardian reports cough, that is intermittent, described as mild, kb difficulty breathing, flu symptoms. Onset: The symptoms/episode began/occurred 10 day(s) ago. Severity of symptoms: At their worst the symptoms were moderate, in the emergency department the symptoms are unchanged. Modifying factors: The symptoms are alleviated by nothing, the symptoms are aggravated by nothing. Associated signs and symptoms: The patient has no apparent associated signs or symptoms. The patient has not experienced similar symptoms in the past. The patient has not recently seen a physician. Pt reports she was diagnosed with covid on 06/27/21. states fever broke so she went back to work today. While there started coughing and having shortness of breath. 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 - Social history:: Smoking status: Patient denies any tobacco usage or history of. ROS: 12:41 Constitutional: Negative for fever, chills, and weight loss. kb 12:41 Respiratory: Positive for cough, shortness of breath, wheezing. 12:41 All other systems are negative. Exam: 12:44 Constitutional: This is a well developed, well nourished patient who is awake, alert, kb and in no acute distress. Head/Face: Normocephalic, atraumatic. ENT: Moist Mucous membranes Cardiovascular: Regular rate and rhythm with a normal S1 and S2. No gallops, murmurs, or rubs. No pulse deficits. Skin: Warm, dry with normal turgor. Normal color. MS/ Extremity: Pulses equal, no cyanosis. Neurovascular intact. Full, normal range of motion. Neuro: Awake and alert, GCS 15, oriented to person, place, time, and situation. Moves all extremities. Normal gait. Psych: Awake, alert, with orientation to person, place and time. Behavior, mood, and affect are within normal limits. 12:44 Respiratory: mild respiratory distress is noted, Respirations: labored breathing, Breath sounds: wheezing: expiratory that is moderate, is heard diffusely. Vital Signs: 09:57 BP 102 / 81; Pulse 102; Resp 20; Temp 99.3(O); Pulse Ox 100% on Nebulizer Mask; Weight sf1 88.45 kg; Height 5 ft. 5 in. (165.10 cm); 12:26 BP 119 / 100; Pulse 94; Resp 18; Pulse Ox 99% ; valladares 09:57 Body Mass Index 32.45 (88.45 kg, 165.10 cm) sf1 MDM: 09:56 Patient medically screened. kb 12:44 Data reviewed: vital signs, nurses notes. Data interpreted: Pulse oximetry: on room air kb is 98 %. Interpretation: normal. Counseling: I had a detailed discussion with the patient and/or guardian regarding: the historical points, exam findings, and any diagnostic results supporting the discharge/admit diagnosis, lab results, radiology results, the need for outpatient follow up, a family practitioner, to return to the emergency department if symptoms worsen or persist or if there are any questions or concerns that arise at home. 12:45 ED course: Pt comfortable after treatment. No resp distress noted. kb 07/07 10:02 Order name: BMP kb 07/07 10:02 Order name: Blood Culture Adult (2) kb 07/07 10:02 Order name: C-Reactive Protein kb 07/07 10:02 Order name: CBC with Diff kb 07/07 10:02 Order name: D-Dimer; Complete Time: 10:55 kb 07/07 10:02 Order name: Ferritin; Complete Time: 11:52 kb 07/07 10:02 Order name: LFT's; Complete Time: 11:52 kb 07/07 10:02 Order name: Lactate; Complete Time: 11:08 kb 07/07 10:02 Order name: Lipase; Complete Time: 11:52 kb 07/07 10:02 Order name: PT-INR; Complete Time: 10:55 kb 07/07 10:02 Order name: Procalcitonin; Complete Time: 11:46 kb 07/07 10:02 Order name: Ptt, Activated; Complete Time: 10:55 kb 07/07 10:02 Order name: Troponin HS; Complete Time: 11:52 kb 07/07 10:02 Order name: Basic Metabolic Panel; Complete Time: 11:52 EDMS 07/07 10:02 Order name: CXR XRAY; Complete Time: 10:40 kb 07/07 10:02 Order name: EKG; Complete Time: 10:03 kb 07/07 10:02 Order name: Cardiac monitoring; Complete Time: 10:31 kb 07/07 10:02 Order name: Droplet/Contact Precautions; Complete Time: 10:31 kb 07/07 10:02 Order name: EKG - Nurse/Tech; Complete Time: 10:10 kb 07/07 10:02 Order name: IV Start; Complete Time: 10:31 kb 07/07 10:02 Order name: Labs collected and sent; Complete Time: 10:31 kb 07/07 10:02 Order name: O2 Per Protocol; Complete Time: 10:31 kb 07/07 10:02 Order name: O2 Sat Monitoring; Complete Time: 10:31 kb 07/07 10:02 Order name: Blood Culture EDMS 07/07 10:02 Order name: C-Reactive Protein; Complete Time: 11:52 EDMS 07/07 10:02 Order name: CBC with Automated Diff; Complete Time: 10:55 EDMS 07/07 10:55 Order name: CT Chest For PE Angio; Complete Time: 11:46 kb Administered Medications: 10:24 Drug: Magnesium Sulfate 1 grams Route: IVPB; Infused Over: 30 mins; Site: left hand; sf1 10:24 Drug: SOLU-Medrol (methylPrednisoLONE) 125 mg Route: IVP; Site: left hand; sf1 10:38 Follow up: Response: No adverse reaction sf1 13:19 Drug: Albuterol 2.5 mg Route: Inhalation; valladares 13:20 Follow up: Response: No adverse reaction valladares Disposition: 15:22 Co-signature as Attending Physician, Hollis MYRICK I agree with the assessment and son plan of care. Disposition Summary: 07/07/21 12:46 Discharge Ordered Location: Home kb Condition: Stable kb Diagnosis - Coronavirus infection, unspecified kb Followup: kb - With: Emergency Department - When: As needed - Reason: Worsening of condition Followup: kb - With: Private Physician - When: 2 - 3 days - Reason: Recheck today's complaints, Continuance of care, Re-evaluation by your physician Discharge Instructions: - Discharge Summary Sheet kb - Viral Respiratory Infection, [id number] kb - COVID-19 kb Forms: - Medication Reconciliation Form kb - Thank You Letter kb - Antibiotic Education kb - Prescription Opioid Use kb Prescriptions: - albuterol sulfate 90 mcg/actuation Inhalation HFA aerosol inhaler - inhale 2 puff by INHALATION route every 4-6 hours As needed; 1 Inhaler; kb Refills: 0, Product Selection Permitted - Prednisone 20 mg Oral Tablet - take 1 tablet by ORAL route once daily for 5 days; 5 tablet; Refills: 0, kb Product Selection Permitted Signatures: Dispatcher [employer] EDSveta Dodge, AMINAC NELI-Hollis Bear MD MD cha Au-Stager, Heather, RN RN Joelle Lan RN RN sf1
--- NOTE | 2021-07-07 12:47 | ER ---
Nurse's Notes [facility] Name: Isma Castillo Age: 46 yrs Sex: Female : 1975 Arrival Date: 07/07/2021 Time: 09:54 Bed 14 Private MD: Diagnosis: Coronavirus infection, unspecified Presentation: 07/07 09:57 Chief complaint: Patient states: cough and shortness of breath.tested positive for sf1 covid on jun 27. Coronavirus screen: Vaccine status: Patient reports receiving the 1st dose of the Covid vaccine. Client presents with at least one sign or symptom that may indicate coronavirus-19. Standard/surgical mask placed on the client. Ebola Screen: Patient denies travel to an Ebola-affected area in the 21 days before illness onset. Initial Sepsis Screen: Does the patient meet any 2 criteria? RR > 20 per min. HR > 90 bpm. Yes Does the patient have a suspected source of infection? No. Patient's initial sepsis screen is negative. Risk Assessment: Do you want to hurt yourself or someone else? Patient reports no desire to harm self or others. Onset of symptoms was July 07, 2021. 09:57 Method Of Arrival: EMS: [facility] sf1 09:57 Acuity: ZAKI 3 sf1 Triage Assessment: 09:59 General: Appears in no apparent distress. Behavior is calm, cooperative. Pain: Denies sf1 pain. COSTUME MISTRESS: 09:59 LMP N/A - control method sf1 Historical: - Allergies: 09:59 No Known Allergies; sf1 - Home Meds: 09:59 None [Active]; sf1 - PMHx: 09:59 Anxiety; Fibromyalgia; insomnia; sf1 - PSHx: 10:56 breast reduction; Disc replacment C5-7; hysterectomy; sf1 - Immunization history:: Adult Immunizations up to date. - Social history:: Smoking status: Patient denies any tobacco usage or history of. Screenin:54 Abuse screen: Denies threats or abuse. Denies injuries from another. Nutritional sf1 screening: No deficits noted. Tuberculosis screening: No symptoms or risk factors identified. Fall Risk IV access (20 points). Assessment: 10:54 Reassessment: d-dimer 1868. General: Appears uncomfortable, Behavior is cooperative. sf1 Pain: Denies pain. Respiratory: Reports shortness of breath cough that is non-productive, Breath sounds are coarse bilaterally. Vital Signs: 09:57 BP 102 / 81; Pulse 102; Resp 20; Temp 99.3(O); Pulse Ox 100% on Nebulizer Mask; Weight sf1 88.45 kg; Height 5 ft. 5 in. (165.10 cm); 12:26 BP 119 / 100; Pulse 94; Resp 18; Pulse Ox 99% ; valladares 09:57 Body Mass Index 32.45 (88.45 kg, 165.10 cm) sf1 ED Course: 09:54 Patient arrived in ED. eb 09:56 [facility] kb 09:56 Hollis Toussaint MD is Attending Physician. kb 09:59 Triage completed. sf1 09:59 Arm band placed on. sf1 10:10 EKG done, by ED staff, reviewed by Sveta CESPEDES. Maintain EMS IV. Dressing 5 intact. Good blood return noted. Site clean \T\ dry. 10:29 Patient has correct armband on for positive identification. Bed in low position. Call 5 light in reach. Side rails up X2. Warm blanket given. alarm security or surveillance monitor on. Pulse ox on. NIBP on. 10:30 CXR XRAY In Process Unspecified. EDMS 10:30 Initial lab(s) drawn, by ED staff. mh5 10:30 C-Reactive Protein Sent. 5 10:31 CBC with Automated Diff Sent. mh5 10:31 Blood Culture Sent. mh5 10:31 Basic Metabolic Panel Sent. 5 10:31 BMP Sent. mh5 10:31 Blood Culture Adult (2) Sent. 5 10:31 C-Reactive Protein Sent. 5 10:31 CBC with Diff Sent. mh5 10:31 D-Dimer Sent. 5 10:32 Ferritin Sent. 5 10:32 LFT's Sent. 5 10:32 Lactate Sent. 5 10:32 Lipase Sent. 5 10:32 PT-INR Sent. 5 10:32 Procalcitonin Sent. 5 10:32 Ptt, Activated Sent. 5 10:32 Troponin HS Sent. mh5 10:54 No provider procedures requiring assistance completed. Maintain EMS IV. sf1 11:24 CT Chest For PE Angio In Process Unspecified. EDMS 13:20 IV discontinued, intact, Pressure dressing applied. valladares Administered Medications: 10:24 Drug: Magnesium Sulfate 1 grams Route: IVPB; Infused Over: 30 mins; Site: left hand; sf1 10:24 Drug: SOLU-Medrol (methylPrednisoLONE) 125 mg Route: IVP; Site: left hand; sf1 10:38 Follow up: Response: No adverse reaction sf1 13:19 Drug: Albuterol 2.5 mg Route: Inhalation; valladares 13:20 Follow up: Response: No adverse reaction valladares Outcome: 12:46 Discharge ordered by MD. kothari 13:20 Discharged to home valladares 13:20 Condition: good 13:20 Discharge instructions given to patient, Prescriptions given X 2. 13:20 Patient left the ED. valladares Signatures: Dispatcher [employer] EDMS Sveta Tello, COY QUINTEROS-[place] [address] Heather, RN RN Joelle Mhaer RN RN sf1
[2021-07-07 13:46] VITALS: TEMP 99.3
[2021-07-07 13:48] VITALS: BP 119/100; O2SAT 99
== END 2021-07-07 13:20 | disposition home or self-care (01) ==
LOC: ER 09:50
DX: U07.1 COVID-19 (principal)
CPT/HCPCS: 93005; 87040 ×2; 85025; 80048; 36415; 87205; 85610; 85379; 80076; 83605; 85730; 84484; 82728; 83690; 84145; 86140; 71275; 71045; 96375; 96374; 99285; Q9967; J3475; J2930

== ENCOUNTER 2021-07-29 00:13 | Emergency (ER) | payer BC ==
--- OUTSIDE RECORDS SUMMARY | 2021-07-29 00:16 | XMS REPORT | Continuity of Care Document ---
:1975 Author Organization [facility] t Address [address] [place] [address] Care Team Providers Name Role Phone Rogelio [...] Active Univers ALLERGIE Class ity of S [facility] Social History Social Habit Start Date Stop Date Quantity Comments Source History of tobacco Cigarette Smoker [facility] use [facility] Sex Assigned At [facility] Branch Exposure to Not sure [facility] SARS-CoV-2 (event) Medica l Branch Smoking Status Start Date Stop Date Source Former smoker 2019-08-28 00:00:00 2019-08-28 00:00:00 [facility] Medications Ordered Filled Start Stop Current Ordering Indication Dosage Frequency Signature Comments Components Source Medication Medication Date Date Medication? Clinician (SIG) Name Name BACLOFEN 0 Yes Take by Unive rs ORAL 4-03 mouth. ity of 15:34: [address] BACLOFEN 2019-0 Yes Take by Unive rs ORAL 4-03 mouth. ity of 15:34: [address] citalopram 2020-0 Yes Take by Uni vers hydrobromid 4-03 mouth. ity of e (CELEXA 15:34: [place] ORAL) 10 Medical Branch eszopiclone 0 Yes Take by Un gage (LUNESTA 4-03 mouth. ity of ORAL) 15:34: [place] [id number] Medical Branch citalopram 0 Yes Take by Uni vers hydrobromid 4-03 mouth. ity of e (CELEXA 15:34: [place] ORAL) 10 Medical Branch eszopiclone Yes Take by Un gage (LUNESTA 4-03 mouth. ity of ORAL) 15:34: [place] [id number] Medical Branch albuterol Yes 2{puff} Inhale 2 [...] Procedure Date / Time Performed Performing Clinician [facility] e BI ULTRASOUND BREAST 2019-12-24 18:37:59 [facility], [facility] RIGHT Medical Branch BI SELF-REFERRED 2019-12-16 16:15:00 Adrien Murray [facility] SCREENING MAMMOGRAM Medical Bran ch BILATERAL Encounters Start End Encounter Admission Attending Care Care Encounter Source Date/Time Date/Time Type Type Clinicians Facility Department ID 2021-07-21 Outpatient Pitts, [facility] 13:46:00 [facility] 2021-06-21 Outpatient Pitts, [facility] 14[facility]28:30 Marques [id number] [facility] 2021-06-21 Outpatient Pitts, [facility] 14:26:46 Marques [id number] [facility] 2021-06-21 Outpatient Pitts, [facility] 13:29:55 Marques [id number] [facility] 2021-06-21 Outpatient Pitts, [facility] 13:20:25 Marques [id number] [facility] 2021-06-21 Outpatient Pitts, [facility] 13:19:12 Marques [id number] [facility] 2021-06-21 Outpatient Pitts, [facility] 12[facility]58:21 Marques [id number] [facility] 2021-06-21 Outpatient Pitts, [facility] 12:47:39 Marques [id number] [facility] 2021-06-21 Outpatient Pitts, [facility] 12[facility]47:28 Marques [id number] [facility] 2021-06-21 Outpatient Pitts, [facility] 12[facility]42:29 Marques [id number] [facility] 2021-07-17 2021-07-17 ambulatory [facility] [id number] [facility] 2021-06-29 2021-06-29 ambulatory [facility] [id number] [facility] 2021-06-27 2021-06-27 ambulatory [facility] [id number] [facility] 2021-04-25 2021-04-25 ambulatory [facility] [id number] [facility] 2021-04-10 2021-04-10 ambulatory [facility] [id number] [facility] 2021-03-17 2021-03-17 Outpatient [facility] [id number] [facility] 2021-02-14 2021-02-14 Outpatient [facility] [id number] [facility] 2021-02-13 2021-02-13 Outpatient [facility] [id number] [facility] 2021-01-25 2021-01-25 Outpatient [facility] [id number] [facility] 2021-01-23 2021-01-23 Outpatient [facility] [id number] [facility] 2020-12-19 2020-12-19 Outpatient [facility] [id number] [facility] 2020-11-21 2020-11-21 Outpatient [facility] [id number] [facility] 2020-10-31 2020-10-31 Outpatient [facility] [id number] [facility] 2020-10-25 2020-10-25 Outpatient [facility] [id number] [facility] 2020-09-26 2020-09-26 Outpatient [facility] [id number] [facility] 2020-09-08 2020-09-08 Outpatient [facility] [id number] [facility] 2020-08-29 2020-08-29 Outpatient [facility] [id number] [facility] 2020-08-15 2020-08-15 Outpatient [facility] [id number] [facility] St 00:00:00 00:00:00 [facility] 2019-12-24 2019-12-24 [facility] Radiology [facility] [id number] 12:43:00 23:59:00 Encounter [place]etta [id number] [place] [id number] [place] [id number] 2019-12-24 2019-12-24 [facility] Radiology [facility] [id number] Univers 12:43:00 23:59:00 Encounter Juliaetta [id number] ity of [place] [id number] [facility] [id number] [address] 2019-12-24 2019-12-24 Outpatient [facility] [id number] Univers 13:00:00 13:00:00 [id number] ity of [facility] 2019-12-24 2019-12-24 Outpatient R RADIOLOGY [facility] [id number] Univers 00:00:00 00:00:00 ity of [facility] 2019-12-16 2019-12-16 [facility] Radiology [facility] [id number] 10:30:00 23:59:00 Encounter [place] [id number] [place] [id number] [place] [id number] 2019-12-16 2019-12-16 [facility] Radiology [facility] [id number] Univers 10:30:00 23:59:00 Encounter [place] [id number] ity of [place] [id number] [facility] [id number] [address] 2019-12-16 2019-12-16 Outpatient R RADIOLOGY [facility] [id number] Univers 00:00:00 00:00:00 ity of [facility] 2019-08-01 2019-08-01 Emergency E [place], MHBL MHBL [id number] [facility]BL 13:27:00 15:30:00 EMERITA Results Test Description Test Time Test Comments Results Result Sourc e Comments BI ULTRASOUND 2019-11-27 Impression:No Universi ty of BREAST LIMITED 0 worrisome solid mass [place] [facility] RIGHT 18:41:32 detected. Branch Recommendation:Hector jimenez mammographic [...] or other abnormal findings in theright breast. [facility], Radiant Results Inft User - 12/24/2019 1:42 [...] Examination:BI Univ ersity of SCREENING 2 SELF-REFERRED [place] [facility] MAMMOGRAM 17:25:47 SCREENING MAMMOGRAM Branc [...] to rule out any solid mass. Recommendation:Hector jimenez mammographic follow-up - LeftUltrasound - Right BI-RADS Category: Left: 2 - BenignRight: 0 - Incomplete: Needs Additional Imaging EvaluationOverall: 0 - Incomplete: Needs Additional Imaging Evaluation
[2021-07-29] MEDS ORDERED: ONDANSETRON 4 MG/2 ML VIAL ONE (00:58)
[2021-07-29] MEDS ORDERED: MORPHINE 4 MG/ML SYR ONE (00:58)
[2021-07-29] MEDS ORDERED: NA CHLORIDE 0.9% 1,000 ML ONE (00:58)
[2021-07-29 01:04] LABS: Absolute Lymphocytes (CBC) 3.2 K/uL (0.7-4.9); Hematocrit 39.1 % (36.0-45.0); Lymphocytes % 36.4 % (15.3-44.8); MPV 8.8 fL (7.6-11.3); RBC Red Blood Cell Count 4.37 M/uL (3.86-4.86)
[2021-07-29 01:18] LABS: ALT/SGPT 30 U/L (12-78); AST/SGOT 15 U/L (15-37); Albumin 3.5 g/dL (3.4-5.0); Alkaline Phosphatase 91 U/L (45-117); BUN Blood Urea Nitrogen 11 mg/dL (7-18); Bicarbonate 27 mmol/L (21-32); Bilirubin Total 0.4 mg/dL (0.2-1.0); Glucose Level 106 mg/dL (74-106); Lipase 123 U/L (73-393); Potassium 3.8 mmol/L (3.5-5.1); Protein, Total 7.2 g/dL (6.4-8.2); Sodium Level 139 mmol/L (136-145)
[2021-07-29 01:28] LABS: Urine Blood 3+ (Negative); Urine Glucose Negative (Negative); Urine Protein Negative (Negative); Urine Specific Gravity 1.025 (1.005-1.030)
[2021-07-29 01:38] LABS: Bilirubin Direct < 0.1 mg/dL (0-0.2)
[2021-07-29 01:55] LABS: Urine Specific Gravity/Preg 1.025 (1.005-1.030)
[2021-07-29] MEDS ORDERED: KETOROLAC 30 MG/ML INJ ONE (03:04)
--- NOTE | 2021-07-29 03:54 | ER ---
Nurse's Notes [facility] Name: Isma Castillo Age: 46 yrs Sex: Female : 1975 Arrival Date: 07/29/2021 Time: 00:14 Bed 15 Private MD: Marques Pitts Diagnosis: Flank Pain Presentation: 07/29 00:17 Chief complaint: Patient states: right sided lower flank pain starting at around 2200. lg3 Coronavirus screen: Client denies travel out of the [place] in the last 14 days. At this time, the client does not indicate any symptoms associated with coronavirus-19. Ebola Screen: No symptoms or risks identified at this time. Initial Sepsis Screen: Does the patient meet any 2 criteria? No. Patient's initial sepsis screen is negative. Does the patient have a suspected source of infection? No. Patient's initial sepsis screen is negative. Risk Assessment: Do you want to hurt yourself or someone else? Patient reports no desire to harm self or others. Onset of symptoms was July 28, 2021 at 22:00. 00:17 Method Of Arrival: Ambulatory lg3 00:17 Acuity: ZAKI 3 lg3 Triage Assessment: 00:19 General: Appears in no apparent distress. uncomfortable, Behavior is calm, cooperative, lg3 anxious. Pain: Complains of pain in right mid back and right low back Pain currently is 10 out of 10 on a pain scale. EENT: No deficits noted. No signs and/or symptoms were reported regarding the EENT system. Neuro: No deficits noted. Level of Consciousness is awake, alert, obeys commands, Oriented to person, place, time, situation. Cardiovascular: No deficits noted. Denies chest pain, shortness of breath. Respiratory: No deficits noted. Airway is patent Trachea midline Respiratory effort is even, unlabored, Respiratory pattern is regular, symmetrical. GI: No deficits noted. Abdomen is round non-distended. : No deficits noted. No signs and/or symptoms were reported regarding the genitourinary system. Derm: No deficits noted. No signs and/or symptoms reported regarding the dermatologic system. Skin is intact, is healthy with good turgor, Skin is dry. Musculoskeletal: No deficits noted. No signs and/or symptoms reported regarding the musculoskeletal system. Circulation, motion, and sensation intact. Capillary refill < 3 seconds, Range of motion: intact in all extremities. 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 - Social history:: Smoking status: Patient denies any tobacco usage or history of. Patient uses street drugs, marijuana, Patient/guardian denies using alcohol. Screenin:23 Abuse screen: Denies threats or abuse. Denies injuries from another. Nutritional lg3 screening: No deficits noted. Tuberculosis screening: No symptoms or risk factors identified. Fall Risk None identified. Assessment: 00:23 GI: Bowel sounds present X 4 quads. Abd is soft and non tender. lg3 Vital Signs: 00:17 BP 148 / 98; Pulse 113; Resp 19; Temp 97.7(TE); Pulse Ox 99% on R/A; Weight 88.45 kg lg3 (R); Height 5 ft. 5 in. (165.10 cm) (R); Pain 10/10; 03:28 BP 114 / 78 RA Supine (auto/reg); Pulse 97 MON; Resp 18 S; Pulse Ox 100% on R/A; sv1 04:30 BP 91 / 58 RA Supine (auto/reg); Pulse 60 MON; Resp 16 S; Temp 98.0(O); Pulse Ox 99% on sv1 R/A; 00:17 Body Mass Index 32.45 (88.45 kg, 165.10 cm) lg3 ED Course: 00:14 Patient arrived in ED. es 00:14 Marques Pitts DO is Private Physician. es 00:19 Triage completed. lg3 00:19 Arm band placed on right wrist. lg3 00:24 Benjie Redman MD is Attending Physician. mh7 00:46 Villicano, Collins, RN is Primary Nurse. sv1 01:13 CT Stone Protocol Sent. sv1 01:28 CT Stone Protocol In Process Unspecified. EDMS 03:53 Redd Javier MD is Referral Physician. [facility] 04:31 No provider procedures requiring assistance completed. IV discontinued. sv1 04:32 Patient has correct armband on for positive identification. Placed in gown. Bed in low sv1 position. Call light in reach. Side rails up X2. Adult w/ patient. Administered Medications: 01:08 Drug: morphine 4 mg Route: IVP; Site: left forearm; sv1 03:26 Follow up: Response: No adverse reaction; Pain is decreased sv1 01:09 Drug: NS 0.9% 1000 ml Route: IV; Rate: 1000 ml; Site: left forearm; sv1 03:27 Follow up: IV Status: Completed infusion; IV converted to saline lock; IV Intake: [id number] 01:09 Drug: Zofran (Ondansetron) 4 mg Route: IVP; Site: left forearm; sv1 03:26 Follow up: Response: No adverse reaction; Nausea is decreased sv1 03:20 Drug: Ketorolac 30 mg Route: IVP; Site: left forearm; sv1 03:38 Follow up: Response: No adverse reaction; Pain is decreased sv1 Intake: 03:27 IV: 1000ml; Total: 1000ml. sv1 Outcome: 03:53 Discharge ordered by . [facility] 04:31 Discharged to home sv1 04:31 Condition: improved 04:31 Discharge instructions given to patient, family. 04:33 Patient left the ED. sv1 Signatures: Dispatcher [employer] EDVivien Dill Lacie, RN RN 3 Benjie Redman MD MD 7 Collins Patel RN RN sv1
--- NOTE | 2021-07-29 03:54 | EDPHYS ---
Physician Documentation [facility] Name: Isma Castillo Age: 46 yrs Sex: Female : 1975 Arrival Date: 07/29/2021 Time: 00:14 Bed 15 Private MD: Marques Pitts ED Physician Benjie Redman HPI: 07/29 00:38 This 46 yrs old Female presents to ER via Ambulatory with complaints of Possible Kidney mh7 Stone. 00:38 The patient complains of pain in the right flank. The pain radiates to the Right lower mh7 abdomen. Onset: The symptoms/episode began/occurred last night, at 22:00. Modifying factors: The symptoms are alleviated by nothing. the symptoms are aggravated by palpation/percussion. Associated signs and symptoms: Pertinent positives: dysuria, hematuria, Pertinent negatives: diarrhea, dizziness, fever, urinary frequency, headache, nausea, pain radiating to the lower extremities, vomiting. Severity of pain: At its worst the pain was moderate last night, in the emergency department the pain has improved moderately. 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 - Social history:: Smoking status: Patient denies any tobacco usage or history of. Patient uses street drugs, marijuana, Patient/guardian denies using alcohol. ROS: 00:38 Constitutional: Negative for fever, chills, and weight loss, Eyes: Negative for injury, mh7 pain, redness, and discharge, ENT: Negative for injury, pain, and discharge, Neck: Negative for injury, pain, and swelling, Cardiovascular: Negative for chest pain, palpitations, and edema, Respiratory: Negative for shortness of breath, cough, wheezing, and pleuritic chest pain, Abdomen/GI: Negative for abdominal pain, nausea, vomiting, diarrhea, and constipation, MS/Extremity: Negative for injury and deformity, Skin: Negative for injury, rash, and discoloration, Neuro: Negative for headache, weakness, numbness, tingling, and seizure, Psych: Negative for depression, anxiety, suicide ideation, homicidal ideation, and hallucinations, Allergy/Immunology: Negative for hives, rash, and allergies, Endocrine: Negative for neck swelling, polydipsia, polyuria, polyphagia, and marked weight changes, Hematologic/Lymphatic: Negative for swollen nodes, abnormal bleeding, and unusual bruising. Exam: 00:38 Head/Face: Normocephalic, atraumatic. Eyes: Pupils equal round and reactive to light, mh7 extra-ocular motions intact. Lids and lashes normal. Conjunctiva and sclera are non-icteric and not injected. Cornea within normal limits. Periorbital areas with no swelling, redness, or edema. Neck: Trachea midline, no thyromegaly or masses palpated, and no cervical lymphadenopathy. Supple, full range of motion without nuchal rigidity, or vertebral point tenderness. No Meningismus. Chest/axilla: Normal chest wall appearance and motion. Nontender with no deformity. No lesions are appreciated. 00:38 Respiratory: Lungs have equal breath sounds bilaterally, clear to auscultation and percussion. No rales, rhonchi or wheezes noted. No increased work of breathing, no retractions or nasal flaring. 00:38 Skin: Warm, dry with normal turgor. Normal color with no rashes, no lesions, and no evidence of cellulitis. MS/ Extremity: Pulses equal, no cyanosis. Neurovascular intact. Full, normal range of motion. Neuro: Awake and alert, GCS 15, oriented to person, place, time, and situation. Cranial nerves II-XII grossly intact. Motor strength 5/5 in all extremities. Sensory grossly intact. Cerebellar exam normal. Normal gait. Psych: Awake, alert, with orientation to person, place and time. Behavior, mood, and affect are within normal limits. 00:38 Constitutional: The patient appears in no acute distress, alert, awake, uncomfortable. 00:38 Cardiovascular: Rate: tachycardic, Rhythm: regular, Pulses: no pulse deficits are appreciated, Heart sounds: normal, normal S1and S2, Edema: is not appreciated, JVD: is not appreciated. 00:38 Abdomen/GI: Inspection: abdomen appears normal, Bowel sounds: normal, in all quadrants, [facility] Palpation: mild abdominal tenderness, in the suprapubic area and right lower quadrant, mass, is not appreciated, rebound tenderness, is not appreciated, voluntary guarding, is not appreciated, involuntary guarding, is not appreciated, no appreciated organomegaly, Rectal exam: the exam is deferred, because of patient request, Indicators: McBurney's point is not tender, Triana's sign is negative, Rovsing's sign is negative, Obturator sign is negative, Psoas sign is negative, Liver: no appreciated palpable abnormalities, Hernia: not appreciated. 00:38 Back: ROM is normal, normal spinal alignment noted, CVA tenderness, that is moderate, is noted on the right, vertebral tenderness, is not appreciated, muscle spasm, is not present. Vital Signs: 00:17 BP 148 / 98; Pulse 113; Resp 19; Temp 97.7(TE); Pulse Ox 99% on R/A; Weight 88.45 kg lg3 (R); Height 5 ft. 5 in. (165.10 cm) (R); Pain 10/10; 03:28 BP 114 / 78 RA Supine (auto/reg); Pulse 97 MON; Resp 18 S; Pulse Ox 100% on R/A; sv1 04:30 BP 91 / 58 RA Supine (auto/reg); Pulse 60 MON; Resp 16 S; Temp 98.0(O); Pulse Ox 99% on sv1 R/A; 00:17 Body Mass Index 32.45 (88.45 kg, 165.10 cm) lg3 MDM: 03:51 Differential diagnosis: nephrolithiasis, pyelonephritis, UTI, diverticulitis. Data [facility] reviewed: vital signs, nurses notes, old medical records, lab test result(s), CBC, electrolytes, urinalysis, radiologic studies, CT scan. Data interpreted: Pulse oximetry: on room air is 100 %. Interpretation: normal. Counseling: I had a detailed discussion with the patient and/or guardian regarding: the historical points, exam findings, and any diagnostic results supporting the discharge/admit diagnosis, lab results, radiology results, the need for outpatient follow up, a urologist. Response to treatment: the patient's symptoms have resolved after treatment, the patient's blood pressure is in an acceptable range, mental status has returned to baseline, the patient no longer shows bradycardia, the patient is not short of breath, the patient is not tachycardic, the patient's pain is gone, the patient's temperature has normalized. 03:53 Patient medically screened. [facility] 07/29 00:38 Order name: Basic Metabolic Panel; Complete Time: 02:06 [facility] 07/29 00:38 Order name: CBC with Diff; Complete Time: 02:06 [facility] 07/29 00:38 Order name: Hepatic Function; Complete Time: 02:06 [facility] 07/29 00:38 Order name: Lipase; Complete Time: 02:06 [facility] 07/29 01:27 Order name: Urine Dipstick-Ancillary; Complete Time: 02:06 EDMS 07/29 01:29 Order name: Urine --Ancillary (enter results); Complete Time: 02:06 cs9 07/29 00:38 Order name: IV Saline Lock; Complete Time: 00:46 [facility] 07/29 00:38 Order name: Labs collected and sent [facility] 07/29 00:38 Order name: Urine Dipstick-Ancillary (obtain specimen) [facility] 07/29 00:38 Order name: CT Stone Protocol [facility] Administered Medications: 01:08 Drug: morphine 4 mg Route: IVP; Site: left forearm; sv1 03:26 Follow up: Response: No adverse reaction; Pain is decreased sv1 01:09 Drug: NS 0.9% 1000 ml Route: IV; Rate: 1000 ml; Site: left forearm; sv1 03:27 Follow up: IV Status: Completed infusion; IV converted to saline lock; IV Intake: [id number] 01:09 Drug: Zofran (Ondansetron) 4 mg Route: IVP; Site: left forearm; sv1 03:26 Follow up: Response: No adverse reaction; Nausea is decreased sv1 03:20 Drug: Ketorolac 30 mg Route: IVP; Site: left forearm; sv1 03:38 Follow up: Response: No adverse reaction; Pain is decreased sv1 Disposition Summary: 07/29/21 03:53 Discharge Ordered Location: Home [facility] Problem: new [facility] Symptoms: have improved [facility] Condition: Stable [facility] Diagnosis - Flank Pain [facility] Followup: [facility] - With: Private Physician - When: 1 - 2 days - Reason: Worsening of condition, Recheck today's complaints, Continuance of care, Re-evaluation by your physician Followup: [facility] - With: Redd Javier MD - When: 2 - 3 days - Reason: Worsening of condition, Recheck today's complaints Discharge Instructions: - Discharge Summary Sheet [facility] - Flank Pain, Adult, [id number] [facility] Forms: - Medication Reconciliation Form [facility] - Thank You Letter [facility] - Antibiotic Education [facility] - Prescription Opioid Use [facility] Prescriptions: - ketorolac 10 mg Oral tablet - take 1 tablet by ORAL route every 6 hours As needed not to exceed 40 mg in [facility] 24hrs; 12 tablet; Refills: 0, Product Selection Permitted Signatures: Dispatcher [employer] Ifrah Patrick, RN RN lg3 Benjie Redman MD MD [facility] Collins Patel RN RN sv1
[2021-07-29 04:48] VITALS: BP 91/58; TEMP 98; O2SAT 99
--- NOTE | 2021-07-29 22:26 | RAD REPORT ---
EXAM DESCRIPTION: CT - Stone Protocol - 07/29/2021 6:41 am CLINICAL HISTORY: 46 years, Female, FLANK PAIN COMPARISON: None. TECHNIQUE: Multiple transaxial tomograms of the abdomen and pelvis were performed from the lung base s to the symphysis pubis 3 mm slice thickness at 3 mm interval reconstruction, without administration of IV and oral contrast. Multiplanar reformats in the sagittal and coronal plane were generated and reviewed. This exam was performed according to our departmental dose-optimization protocol, which includes auto mated exposure control, adjustment of the mA and/or kV according to patient size and/or use of iterat devaughn reconstruction technique. FINDINGS: The lack of IV and oral contrast limits evaluation of solid organs, subtle lesions cannot be excluded. The lung bases demonstrate to be clear. Grossly the unopacified liver demonstrate slight decreased attenuation suggesting mild fatty infiltra tion, gallbladder, pancreas, spleen and adrenal glands demonstrate to be within normal limits, no sig nificant focal lesions were identified. The kidneys demonstrate grossly unremarkable. There is no evidence for nephrolithiasis and/or hydro nephrosis. No focal masses were demonstrated. The ureters displays normal appearance with normal caliber, no hydroureter was seen. Grossly the unopacified stomach, small bowel and large bowel demonstrate to be within normal limits. There is no evidence for bowel dilatation/or free air. The appendix is normal. The urinary bladder was partially distended with no gross abnormalities. The uterus is absent. There are no adnexal masses The aorta demonstrate to be within normal limits. There is no retroperitoneal lymphadenopathy. There is no evidence for ascites. The rest of the soft tissue demonstrate to be g rossly unremarkable. There is a very small umbilical hernia containing omentum. IMPRESSION: No evidence for nephrolithiasis and/or hydronephrosis. Mild fatty infiltration of the liver. Very small umbilical hernia containing omentum. Electronically signed by: Yonas Lu MD 07/29/2021 1:45 AM PYTHON DEVELOPER Due to temporary technical issues with the PACS/Fluency reporting system, reports are being signed by the in house radiologists without review as a courtesy to insure prompt reporting. The interpreting radiologist is fully responsible for the content of the report.
== END 2021-07-29 04:33 | disposition home or self-care (01) ==
LOC: ER 00:13
DX: R10.9 Unspecified abdominal pain (principal); F41.9 Anxiety disorder, unspecified
CPT/HCPCS: 96361; 85025; 80048; 36415; 81025; 80076; 81003; 83690; 76377; 74176; 96375; 96374; 99283; J7030; J2405

== ENCOUNTER 2021-12-16 15:40 | Emergency (ER) | payer SELFPAY ==
--- OUTSIDE RECORDS SUMMARY | 2021-12-16 15:44 | XMS REPORT | Continuity of Care Document ---
:1975 Author Organization [facility] t Address [address] [place] [address] Care Team Providers Name Role Phone Rogelio [...] Active [facility] ity of S [facility] Social History Social Habit Start Date Stop Date Quantity Comments Source History of tobacco [facility]igarette [facility] Assigned At [facility] Exposure to Not sure [facility] SARS-CoV-2 (event) [facility]ica [facility] Smoking Status Start Date Stop Date Source Former smoker 2019-08-28 00:00:00 2019-08-28 00:00:00 [facility] Medications Ordered Filled Start Stop Current Ordering Indication Dosage Frequency Signature Comments Components Source Medication Medication Date Date Medication? Clinician (SIG) Name Name BACLOFEN 0 Yes Take by Unive rs ORAL 4-03 mouth. ity of 15:34: [address] BACLOFEN 2019-0 Yes Take by Unive rs ORAL 4-03 mouth. ity of 15:34: [address] citalopram 2020-0 Yes Take by Uni vers hydrobromid 4-03 mouth. ity of e (CELEXA 15:34: [place] ORAL) 10 [facility] eszopiclone 2019-0 Yes Take by Un gage (LUNESTA 4-03 mouth. ity of ORAL) 15:34: [place] [address] [facility] citalopram 0 Yes Take by Uni vers hydrobromid 4-03 mouth. ity of e (CELEXA 15:34: [place] ORAL) 10 [facility] eszopiclone 0 Yes Take by Un gage (LUNESTA 4-03 mouth. ity of ORAL) 15:34: [place] [address] [facility] Branch albuterol Yes 2{puff} Inhale 2 [...] Procedure Date / Time Performed Performing Clinician [facility] BI ULTRASOUND BREAST 2019-12-24 18:37:59 Requisition, Paper [facility] RIGHT Medical Branch BI SELF-REFERRED 2019-12-16 16:15:00 [facility] SCREENING MAMMOGRAM Medical Bran ch BILATERAL Encounters Start End Encounter Admission Attending Care Care Encounter Source Date/Time Date/Time Type Type Clinicians Facility Department ID 2021-10-13 Outpatient Pitts, [facility]C [facility] Common 10:47:18 Marques [facility] 2021-07-21 Outpatient Pitts, STLMLC [facility] Common 13:46:00 Marques [facility] 2021-06-21 Outpatient Pitts, STLMLC [facility] Common 14:28:30 Marques [facility] 2021-06-21 Outpatient Pitts, [facility] [id number] Common 14:26:46 Marques [facility] 2021-06-21 Outpatient Pitts, STLMLC [facility] [id number] Common 13:29:55 Marques [id number] [facility] 2021-06-21 Outpatient Pitts, STLMLC [facility] [id number] Common 13:20:25 Marques [id number] [facility] 2021-06-21 Outpatient Pitts, STLMLC [facility] [id number] Common 13:19:12 Marques [address]97[address] [facility] 2021-06-21 Outpatient Pitts, STLMLC [facility] [id number] Common 12:58:21 Marques 83864 [facility] 2021-06-21 Outpatient Pitts, STLMLC [facility] [id number] Common 12:47:39 Marques [address]23[address] [facility] 2021-06-21 Outpatient Pitts, STLMLC [facility] [id number] Common 12:47:28 Marques [address]673 [facility] 2021-06-21 Outpatient Pitts, STLMLC ST[facility] [id number] Common 12:42:29 Marques [address]486 [facility] 2021-09-25 2021-09-25 ambulatory STLMLC ST[facility] [id number] Common 00:00:00 00:00:00 [facility] 2021-07-17 2021-07-17 ambulatory STLMLC STL[facility] [id number] Common 00:00:00 00:00:00 [facility] 2021-06-29 2021-06-29 ambulatory STLMLC ST[facility] [id number] Common 00:00:00 00:00:00 [facility] 2021-06-27 2021-06-27 ambulatory STLMLC STL[facility] [id number] Common 00:00:00 00:00:00 [facility] 2021-04-25 2021-04-25 ambulatory STLMLC STL[facility]C [id number] Common 00:00:00 00:00:00 [facility] 2021-04-10 2021-04-10 ambulatory STLMLC STL[facility]C [id number] Common 00:00:00 00:00:00 [facility] 2021-03-17 2021-03-17 Outpatient STLMLC ST[facility] [id number] Common 00:00:00 00:00:00 [facility] 2021-02-14 2021-02-14 Outpatient STLMLC ST[facility] [id number] Common 00:00:00 00:00:00 [facility] 2021-02-13 2021-02-13 Outpatient STLMLC ST[facility] [id number] Common 00:00:00 00:00:00 [facility] 2021-01-25 2021-01-25 Outpatient STLMLC STL[facility] [id number] Common 00:00:00 00:00:00 [facility] 2021-01-23 2021-01-23 Outpatient STLMLC ST[facility] [id number] Common 00:00:00 00:00:00 [facility] 2020-12-19 2020-12-19 Outpatient STLMLC STL[facility] [id number] Common 00:00:00 00:00:00 [facility] 2020-11-21 2020-11-21 Outpatient STLMLC ST[facility] [id number] Common 00:00:00 00:00:00 [facility] 2020-10-31 2020-10-31 Outpatient STLMLC STL[facility] [id number] Common 00:00:00 00:00:00 [facility] 2020-10-25 2020-10-25 Outpatient STLMLC STL[facility] [id number] Common 00:00:00 00:00:00 [facility] 2020-09-26 2020-09-26 Outpatient STLMLC ST[facility] [id number] Common 00:00:00 00:00:00 [facility] 2020-09-08 2020-09-08 Outpatient STLMLC ST[facility] [id number] Common 00:00:00 00:00:00 [facility] 2020-08-29 2020-08-29 Outpatient STLMLC ST[facility] [id number] Common 00:00:00 00:00:00 [facility] 2020-08-15 2020-08-15 Outpatient STLMLC STL[facility] [id number] Common 00:00:00 00:00:00 Edmond Mccain [facility] 2019-12-24 2019-12-24 [facility] Radiology [facility] [id number] 12:43:00 23:59:00 Encounter [place] [id number] [place] [id number] [place] [id number] 2019-12-24 2019-12-24 [facility] Radiology [facility] [id number] Univers 12:43:00 23:59:00 Encounter [place] [id number] ity of [place] [id number] [facility] [id number] [facility] [address] [place] 2019-12-24 2019-12-24 Outpatient [facility] [id number] Univers 13:00:00 13:00:00 [id number] ity of [facility] 2019-12-24 2019-12-24 Outpatient R RADIOLOGY [facility] [id number] Univers 00:00:00 00:00:00 ity of [facility] 2019-12-16 2019-12-16 [facility] Radiology [facility] [id number] 10:30:00 23:59:00 Encounter [place] [id number] [place] [id number] [place] [id number] 2019-12-16 2019-12-16 [facility] Radiology [facility] [id number] Univers 10:30:00 23:59:00 Encounter [place] [id number] ity of [place] [id number] [facility] [id number] [facility] [address] 2019-12-16 2019-12-16 Outpatient R RADIOLOGY [facility] [id number] Univers 00:00:00 00:00:00 ity of [facility] 2019-08-01 2019-08-01 Emergency E [place], MHBL MHBL [...] Examination:BI Univ ersity of SCREENING 2 SELF-REFERRED [place] [facility] MAMMOGRAM 17:25:47 SCREENING MAMMOGRAM Branc [...]
--- NOTE | 2021-12-16 16:44 | EDPHYS ---
Physician Documentation [facility] Name: Isma Castillo Age: 46 yrs Sex: Female : 1975 Arrival Date: 12/16/2021 Time: 15:40 Bed 9 Private MD: Marques Pitts ED Physician Jenelle Mota HPI: 12/16 16:27 This 46 yrs old Female presents to ER via Ambulatory with complaints of Insect Bite, jmm Allergic Reaction. 16:27 The patient's rash thought to be caused by an unknown cause. Onset: The jmm symptoms/episode began/occurred acutely, today. Associated signs and symptoms: Pertinent positives: burning sensation, itching, Pain Pertinent negatives: swelling of lips, swelling of throat, swelling of tongue. This is a 46-year-old female with history of fibromyalgia, anxiety the presents emerged department with complaints of redness and swelling to the right thumb traveling proximally to the mid forearm. Patient is unsure exactly the cause but states she took 2 Benadryl tablets which helped to relieve the symptoms. Denies shortness of breath, vomiting.. 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 - Social history:: Smoking status: Patient denies any tobacco usage or history of. ROS: 16:27 Constitutional: Negative for fever, chills, and weight loss, Cardiovascular: Negative jmm for chest pain, palpitations, and edema, Respiratory: Negative for shortness of breath, cough, wheezing, and pleuritic chest pain. 16:27 Skin: Positive for rash. 16:27 All other systems are negative. Exam: 16:27 Constitutional: This is a well developed, well nourished patient who is awake, alert, jmm and in no acute distress. Head/Face: atraumatic. Eyes: EOMI, no conjunctival erythema appreciated ENT: Moist Mucus Membranes Neck: Trachea midline, Supple Chest/axilla: Normal chest wall appearance and motion. Cardiovascular: Regular rate and rhythm. No edema appreciated Respiratory: Normal respirations, no respiratory distress appreciated Abdomen/GI: Non distended Back: Normal ROM 16:27 Skin: Mild erythema noted to the right wrist along the radial side, traveling to the base of the right thumb. Nontender to palpation no induration appreciated. 16:27 Neuro: Orientation: is normal, Mentation: is normal, Memory: is normal. 16:27 Psych: Behavior/mood is pleasant, cooperative. Vital Signs: 16:09 BP 125 / 76; Pulse 103; Resp 20; Temp 98.1; Pulse Ox 100% on R/A; Weight 88.45 kg; vg1 Height 5 ft. 5 in. (165.10 cm); Pain 5/10; 16:09 Body Mass Index 32.45 (88.45 kg, 165.10 cm) vg1 MDM: 16:27 Patient medically screened. [facility] 16:43 Data reviewed: vital signs, nurses notes. Counseling: I had a detailed discussion with eunice the patient and/or guardian regarding: the historical points, exam findings, and any diagnostic results supporting the discharge/admit diagnosis, the need for outpatient follow up, to return to the emergency department if symptoms worsen or persist or if there are any questions or concerns that arise at home. Administered Medications: 16:35 Drug: Decadron (dexamethasone) 10 mg Route: IM; Site: right gluteus; [facility] 16:49 Follow up: Response: No adverse reaction [facility] Disposition: 12/17 07:47 STAFF ATTESTATION STATEMENT I was immediately available on-site in the Emergency sd2 Department for consultation in the care of the patient. Jenelle Mota MD. Disposition Summary: 12/16/21 16:44 Discharge Ordered Location: Home eunice Condition: Stable major Diagnosis - Insect Envenomation major Followup: eunice - With: Private Physician - When: 2 - 3 days - Reason: Recheck today's complaints, Continuance of care, Re-evaluation by your physician Discharge Instructions: - Discharge Summary Sheet eunice - Insect Bite, Adult eunice Forms: - Medication Reconciliation Form [facility] - Thank You Letter [facility] - Antibiotic Education [facility] - Prescription Opioid Use [facility] Prescriptions: - Cephalexin 500 mg Oral Capsule - take 1 capsule by ORAL route every 6 hours for 10 days; 40 capsule; Refills: 0, [facility] Product Selection Permitted - Medrol (Anibal) 4 mg Oral Tablets, Dose Pack - take 1 tablet by ORAL route as directed - follow package instructions; 1 [facility] packet; Refills: 0, Product Selection Permitted Signatures: Marcos Praker PA PA jmm Garcia, Victoria RN RN vg1 Jenelle Mota2 Landy Torres RN RN bh1
--- NOTE | 2021-12-16 16:44 | ER ---
Nurse's Notes [facility] Name: Isma Castillo Age: 46 yrs Sex: Female : 1975 Arrival Date: 12/16/2021 Time: 15:40 Bed 9 Private MD: Marques Pitts Diagnosis: Insect Envenomation Presentation: 12/16 16:09 Chief complaint: Patient states: unsure of insect bite, redness and swelling to Right vg1 thumb, c/o of itchy throat and states lips feel swollen. Stated took 2 Benadryl tablets. Coronavirus screen: Vaccine status: Patient reports receiving the 2nd dose of the covid vaccine. Client denies travel out of the [place] in the last 14 days. Ebola Screen: Patient denies exposure to infectious person. Patient denies travel to an Ebola-affected area in the 21 days before illness onset. Risk Assessment: Do you want to hurt yourself or someone else? Patient reports no desire to harm self or others. Onset of symptoms was December 16, 2021. 16:09 Method Of Arrival: Ambulatory vg1 16:09 Acuity: ZAKI 3 vg1 16:09 Initial Sepsis Screen: Does the patient meet any 2 criteria? No. Patient's initial vg1 sepsis screen is negative. Does the patient have a suspected source of infection? No. Patient's initial sepsis screen is negative. Triage Assessment: 16:11 Bite description: bite sustained to right hand and right arm by unknown insect, animal vg1 information: vaccination(s) is unknown. General: Appears uncomfortable, Behavior is cooperative. Pain: Complains of pain in right hand and right arm. Respiratory: Airway is patent Respiratory effort is even, unlabored. 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 - Social history:: Smoking status: Patient denies any tobacco usage or history of. Screenin:15 Abuse screen: Denies threats or abuse. Nutritional screening: No deficits noted. [facility] Tuberculosis screening: No symptoms or risk factors identified. Fall Risk None identified. Assessment: 16:15 Derm: Skin has lesions on RIGHT THUMB Skin is PALE WHITE. [facility] Vital Signs: 16:09 BP 125 / 76; Pulse 103; Resp 20; Temp 98.1; Pulse Ox 100% on R/A; Weight 88.45 kg; 1 Height 5 ft. 5 in. (165.10 cm); Pain 5/10; 16:09 Body Mass Index 32.45 (88.45 kg, 165.10 cm) [facility] ED Course: 15:40 Patient arrived in ED. mr 15:41 Marques Pitts DO is Private Physician. mr 16:09 [address] on. [facility] 16:[address] [facility] 16:11 Marcos Parker PA is PHCP. [facility] 16:11 Jenelle Mota is Attending Physician. [facility] 16:15 Landy Torres, RN is Primary Nurse. [facility] 16:15 No apparent distress. Resting quietly. Awaiting ED provider evaluation. [facility] 16:15 Patient has correct armband on for positive identification. Bed in low position. Call [facility] light in reach. 16:15 No provider procedures requiring assistance completed. Patient did not have IV access [facility] during this emergency room visit. Administered Medications: 16:35 Drug: Decadron (dexamethasone) 10 mg Route: IM; Site: right gluteus; [facility] 16:49 Follow up: Response: No adverse reaction [facility] Medication: 16:15 VIS not applicable for this client. [facility] Outcome: 16:44 Discharge ordered by . [facility] 16:49 Discharged to home ambulatory. [facility] 16:49 Condition: good 16:49 Discharge instructions given to patient, Instructed on discharge instructions, follow up and referral plans. medication usage, Demonstrated understanding of instructions, follow-up care, medications, Prescriptions given X 2. 16:50 Patient left the ED. [facility] Signatures: Marcos Parker PA PA jmm Rivera, Mary mr Garcia, Victoria, RN RN [facility] Landy Torres, NUPUR RN [facility] Corrections: (The following items were deleted from the chart) 16:12 16:09 Chief complaint: Patient states: unsure of insect bite, redness and swelling to vg1 Right thumb, c/o of itchy throat and states lips feel swollen. vg1 16:13 16:09 88.45 kg; Height 5 ft. 5 in.; BMI: 32.4; Pain 5/10; vg1 vg1
[2021-12-16] MEDS ORDERED: dexAMETHasone 10 MG/ML VIAL ONE (16:52)
[2021-12-16 17:03] VITALS: BP 125/76; TEMP 98.1; O2SAT 100
== END 2021-12-16 16:50 | disposition home or self-care (01) ==
LOC: ER 15:40
DX: R21 Rash and other nonspecific skin eruption (principal); S60.361A Insect bite (nonvenomous) of right thumb, initial encounter; F41.9 Anxiety disorder, unspecified
CPT/HCPCS: 96372; 99283; J1100

== ENCOUNTER 2022-04-24 08:39 | Emergency (ER) | payer BC ==
--- OUTSIDE RECORDS SUMMARY | 2022-04-24 08:43 | XMS REPORT | Continuity of Care Document ---
:1975 Author Organization [facility] t Address [address] [place] [address] Care Team Providers Name Role Phone Marques Pitts Attending Clinician Unavailable Radiology Attending Clinician Unavailable RADIOLOGY Attending Clinician Unavailable EMERITA MACEDO Attending Clinician Unavailable Payers Payer Name Policy Type Policy Number Effective Date Expiration Date S [place] [employer] 6 [id number] 2020 Common Spir it Blue Shield of 00:00:00 - [facility] Problems Condition Condition Condition Status Onset Resolution Last Treating Co mments Source Name Details Category Date Date Treatment Clinician Date [id number] Body mass Problem Com mon index Spirit [BMI] - [facility] 32.0-32.9, [facility] [id number] Other Problem Common obesity Spirit due to - [facility] excess [facility] [id number] Fibromyalg Problem Co mmon ia Spirit - [facility] [id number] Generalize Problem Com mon d anxiety Spirit disorder - [facility] [id number] 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 [id number] Cervical Problem Comm on disc Spirit herniation - [facility] [id number] Mixed Problem Common hyperlipid Spirit emia - [facility] [id number] Migraine Problem Comm on without Spirit aura and - [facility] without [facility] migrainosu Medica l s, not Center intractabl e [id number] Primary Problem Common insomnia Spirit - [facility] [id number] 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 Social History Social Habit Start Date Stop Date Quantity Comments Source History of Tobacco Use Co mmon [facility] Sex Assigned At Com mon [facility] Exposure to SARS-CoV-2 Not sure Un [facility] Smoking Status Start Date Stop Date Source Former Smoker 2022-04-02 00:00:00 2022-04-02 00:00:00 Common S pirit [facility] Medications Ordered Filled Start Stop Current Ordering Indication Dosage Frequency Signature Comments Components Source Medication Medication Date Date Medication? Clinician (SIG) Name Name Adderall XR Adderall XR 2021-05 No 1{capsu QD Adderall 25 MG 25 MG 1-21 le_in_t XR 25 MG 00:00: he_morn 00 ing} Zolpidem Zolpidem 2021-05 No 1{table QD Zolpidem Tartrate ER Tartrate ER -08 t_at_be Tartrate 12.5 MG 12.5 MG 00:00: dtime_a ER 12.5 MG 00 s_neede d} Adderall XR Adderall XR 2021-05 No 1{capsu QD Adderall 25 MG 25 MG 0-19 le_in_t XR 25 MG 00:00: he_morn 00 ing} Adderall XR Adderall XR No 1{capsu QD Adderall 25 MG 25 MG 9-26 le_in_t XR 25 MG 00:00: he_morn 00 ing} Adderall XR Adderall XR No 1{capsu QD Adderall 25 MG 25 MG 9-26 le_in_t XR 25 MG 00:00: he_morn 00 ing} Adderall XR Adderall XR 2021-0 No 1{capsu QD Adderall 25 MG 25 MG 9-26 le_in_t XR 25 MG 00:00: he_morn 00 ing} Adderall XR Adderall XR 2021-0 No 1{capsu QD Adderall 25 MG 25 MG 9-26 le_in_t XR 25 MG 00:00: he_morn 00 ing} Adderall XR Adderall XR 2021-0 No 1{capsu QD Adderall 25 MG 25 MG 9-08 le_in_t XR 25 MG 00:00: he_morn 00 ing} Adderall XR Adderall XR 2021-0 No 1{capsu QD Adderall 25 MG 25 MG 8-15 le_in_t XR 25 MG 00:00: he_morn 00 ing} Adderall XR Adderall XR 2021-0 No 1{capsu QD Adderall 25 MG 25 MG 8-15 le_in_t XR 25 MG 00:00: he_morn 00 ing} Zolpidem Zolpidem 2021-0 No 1{table QD Zolpidem Tartrate ER Tartrate ER 01-02 t_at_be Tartrate 12.5 MG 12.5 MG 00:00: dtime_a ER 12.5 MG 00 s_neede d} Zolpidem Zolpidem 2021-0 No 1{table QD Zolpidem Tartrate ER Tartrate ER 01-02 t_at_be Tartrate 12.5 MG 12.5 MG 00:00: dtime_a ER 12.5 MG 00 s_neede d} Zolpidem Zolpidem 2021-0 No 1{table QD Zolpidem Tartrate ER Tartrate ER 01-02 t_at_be Tartrate 12.5 MG 12.5 MG 00:00: dtime_a ER 12.5 MG 00 s_neede d} Zolpidem Zolpidem 2021-0 No 1{table QD Zolpidem Tartrate ER Tartrate ER 01-02 t_at_be Tartrate 12.5 MG 12.5 MG 00:00: dtime_a ER 12.5 MG 00 s_neede d} Amphetamine Amphetamine 2022-0 No 1{capsu QD Amphetamin -Dextroamph -Dextroamph 7- le_in_t e-Dextroam et ER 25 MG et ER 25 MG 00:00: he_morn phet ER 25 00 ing} MG Amphetamine Amphetamine No 1{capsu QD Amphetamin -Dextroamph -Dextroamph 7- le_in_t e-Dextroam et ER 25 MG et ER 25 MG 00:00: he_morn phet ER 25 00 ing} MG Amphetamine Amphetamine No 1{capsu QD Amphetamin -Dextroamph -Dextroamph 7- le_in_t e-Dextroam et ER 25 MG et ER 25 MG 00:00: he_morn phet ER 25 00 ing} MG Amphetamine Amphetamine No 1{capsu QD Amphetamin -Dextroamph -Dextroamph 7- le_in_t e-Dextroam et ER 25 MG et ER 25 MG 00:00: he_morn phet ER 25 00 ing} MG Amphetamine Amphetamine No 1{capsu QD Amphetamin -Dextroamph -Dextroamph 11-24 le_in_t e-Dextroam et ER 25 MG et ER 25 MG 00:00: he_morn phet ER 25 00 ing} MG Amphetamine Amphetamine No 1{capsu QD Amphetamin -Dextroamph -Dextroamph 7- le_in_t e-Dextroam et ER 25 MG et ER 25 MG 00:00: he_morn phet ER 25 00 ing} MG Adderall XR Adderall XR No 1{capsu QD Adderall 25 MG 25 MG 6-02 le_in_t XR 25 MG 00:00: he_morn 00 ing} Adderall XR Adderall XR 0 No 1{capsu QD Adderall 25 MG 25 MG 5-03 le_in_t XR 25 MG 00:00: he_morn 00 ing} Zolpidem Zolpidem 0 No 1{table QD Zolpidem Tartrate ER Tartrate ER 5-02 t_at_be Tartrate 12.5 MG 12.5 MG 00:00: dtime_a ER 12.5 MG 00 s_neede d} Adderall XR Adderall XR 2021-0 No 1{capsu QD 20 MG 20 MG 4-03 le_in_t 00:00: he_morn 00 ing} Adderall XR Adderall XR 2021-0 No 1{capsu QD Adderall 20 MG 20 MG 4-03 le_in_t XR 20 MG 00:00: he_morn 00 ing} Adderall XR Adderall XR 2021-0 No 1{capsu QD Adderall 20 MG 20 MG 4-03 le_in_t XR 20 MG 00:00: he_morn 00 ing} Amphetamine Amphetamine 0 No 1{capsu QD -Dextroamph -Dextroamph 3-03 le_in_t et ER 20 MG et ER 20 MG 00:00: he_morn 00 ing} Amphetamine Amphetamine 2021-0 No 1{capsu QD Amphetamin -Dextroamph -Dextroamph 3-03 le_in_t e-Dextroam et ER 20 MG et ER 20 MG 00:00: he_morn phet ER 20 00 ing} MG Amphetamine Amphetamine 2021-0 No 1{capsu QD Amphetamin -Dextroamph -Dextroamph 3-03 le_in_t e-Dextroam et ER 20 MG et ER 20 MG 00:00: he_morn phet ER 20 00 ing} MG Adderall XR Adderall XR 2021-0 No 1{capsu QD 20 MG 20 MG 2-04 le_in_t 00:00: he_morn 00 ing} Adderall XR Adderall XR 2021-0 No 1{capsu QD Adderall 20 MG 20 MG 2-04 le_in_t XR 20 MG 00:00: he_morn 00 ing} Adderall XR Adderall XR 2021-0 No 1{capsu QD Adderall 20 MG 20 MG 2-04 le_in_t XR 20 MG 00:00: he_morn 00 ing} Zolpidem Zolpidem 2021-0 No 1{table QD Tartrate ER Tartrate ER 2-03 t_at_be 12.5 MG 12.5 MG 00:00: dtime_a 00 s_neede d} Zolpidem Zolpidem No 1{table QD Zolpidem Tartrate ER Tartrate ER 2-03 t_at_be Tartrate 12.5 MG 12.5 MG 00:00: dtime_a ER 12.5 MG 00 s_neede d} Zolpidem Zolpidem No 1{table QD Zolpidem Tartrate ER Tartrate ER 2-03 t_at_be Tartrate 12.5 MG 12.5 MG 00:00: dtime_a ER 12.5 MG 00 s_neede d} Adderall XR Adderall XR No 1{capsu QD Adderall 20 MG 20 MG 1-02 le_in_t XR 20 MG 00:00: he_morn 00 ing} Zolpidem Zolpidem 2020-05 No 1{table QD Zolpidem Tartrate ER Tartrate ER 2-17 t_at_be Tartrate 12.5 MG 12.5 MG 00:00: dtime_a ER 12.5 MG 00 s_neede d} Adderall XR Adderall XR 2020-05 No 1{capsu QD Adderall 20 MG 20 MG 2-03 le_in_t XR 20 MG 00:00: he_morn 00 ing} Zolpidem Zolpidem 2020-05 No 1{table QD Zolpidem Tartrate ER Tartrate ER 1-16 t_at_be Tartrate 12.5 MG 12.5 MG 00:00: dtime_a ER 12.5 MG 00 s_neede d} Zolpidem Zolpidem 2020-05 No 1{table QD Zolpidem Tartrate ER Tartrate ER 0-22 t_at_be Tartrate 12.5 MG 12.5 MG 00:00: dtime_a ER 12.5 MG 00 s_neede d} Zolpidem Zolpidem No 1{table QD Zolpidem Tartrate 10 Tartrate 10 9-23 t_at_be Tartrate MG MG 00:00: dtime_a 10 MG 00 s_neede d} Zolpidem Zolpidem No 1{table QD Zolpidem Tartrate 10 Tartrate 10 9-23 t_at_be Tartrate MG MG 00:00: dtime_a 10 MG 00 s_neede d} Zolpidem Zolpidem 2021-0 No 1{table QD Zolpidem Tartrate 10 Tartrate 10 9-23 t_at_be Tartrate MG MG 00:00: dtime_a 10 MG 00 s_neede d} Zolpidem Zolpidem 2021-0 No 1{table QD Zolpidem Tartrate 10 Tartrate 10 9-23 t_at_be Tartrate MG MG 00:00: dtime_a 10 MG 00 s_neede d} Zolpidem Zolpidem 1-0 No 1{table QD Tartrate 10 Tartrate 10 9-23 t_at_be MG MG 00:00: dtime_a 00 s_neede d} Zolpidem Zolpidem 1-0 No 1{table QD Zolpidem Tartrate 10 Tartrate 10 -23 t_at_be Tartrate MG MG 00:00: dtime_a 10 MG 00 s_neede d} Zolpidem Zolpidem 1-0 No 1{table QD Zolpidem Tartrate 10 Tartrate 10 9-23 t_at_be Tartrate MG MG 00:00: dtime_a 10 MG 00 s_neede d} Zolpidem Zolpidem 1-0 No 1{table QD Zolpidem Tartrate 10 Tartrate 10 9-23 t_at_be Tartrate MG MG 00:00: dtime_a 10 MG 00 s_neede d} Zolpidem Zolpidem 2021-0 No 1{table QD Zolpidem Tartrate 10 Tartrate 10 9-23 t_at_be Tartrate MG MG 00:00: dtime_a 10 MG 00 s_neede d} Zolpidem Zolpidem 1-0 No 1{table QD Zolpidem Tartrate 10 Tartrate 10 9-23 t_at_be Tartrate MG MG 00:00: dtime_a 10 MG 00 s_neede d} Zolpidem Zolpidem 1-0 No 1{table QD Zolpidem Tartrate 10 Tartrate 10 9-23 t_at_be Tartrate MG MG 00:00: dtime_a 10 MG 00 s_neede d} Zolpidem Zolpidem No 1{table QD Zolpidem Tartrate 10 Tartrate 10 9-23 t_at_be Tartrate MG MG 00:00: dtime_a 10 MG 00 s_neede d} Zolpidem Zolpidem No 1{table QD Zolpidem Tartrate 10 Tartrate 10 9-23 t_at_be Tartrate MG MG 00:00: dtime_a 10 MG 00 s_neede d} Zolpidem Zolpidem No 1{table QD Zolpidem Tartrate 10 Tartrate 10 -23 t_at_be Tartrate MG MG 00:00: dtime_a 10 MG 00 s_neede d} Belsomra 15 Belsomra 15 No 1{table QD Belsomra MG MG 9-20 t_at_be 15 MG 00:00: dtime_a 00 s_neede d} BACLOFEN Yes Take by [facility] s ORAL 4-03 mouth. ity of 15:34: [address] Branch BACLOFEN Yes Take by [facility] ORAL 4-03 mouth. ity of 15:34: [address] Branch citalopram Yes Take by [facility] ers hydrobromid 4-03 mouth. ity of e (CELEXA 15:34: [place] ORAL) [address] [place] [address] Branch eszopiclone Yes Take by [facility] (LUNESTA 4-03 mouth. ity of ORAL) 15:34: [address] Branch citalopram Yes Take by [facility] ers hydrobromid 4-03 mouth. ity of e (CELEXA 15:34: [place] ORAL) [address] [facility] Branch eszopiclone Yes Take by [facility] (LUNESTA 4-03 mouth. ity of ORAL) 15:34: [address] Branch albuterol Yes 2{puff} Inhale 2 U nivers 90 4-03 Puffs ity of mcg/actuati 15:34: every 6 Kash as on inhaler 09 (six) Medical hours as Branch needed for Wheezing or Shortness of Breath. albuterol 2020-0 Yes 2{puff} Inhale 2 U nivers 90 4-03 Puffs ity of mcg/actuati 15:34: every 6 Kash as on inhaler 09 (six) Medical hours as Branch needed for Wheezing or Shortness of Breath. CeleXA 20 CeleXA 20 No 1{table QD CeleXA 20 MG MG t} MG traMADol traMADol No 1{table QD traMADol HCl 50 MG HCl 50 MG t_as_ne HCl 50 MG eded} Adderall XR Adderall XR No 1{capsu QD Adderall 20 MG 20 MG le_in_t XR 20 MG he_morn ing} Pregabalin Pregabalin No Pregabalin 50 MG 50 MG 50 MG Chlorzoxazo Chlorzoxazo No 1{table QD Chlorzoxaz ne 500 MG ne 500 MG t_as_ne one 500 MG eded} Cyclobenzap Cyclobenzap No Cyclobenza rine HCl 10 rine HCl 10 rachid HCl MG MG 10 MG CeleXA 20 CeleXA 20 No 1{table QD CeleXA 20 MG MG t} MG traMADol traMADol No 1{table QD traMADol HCl 50 MG HCl 50 MG t_as_ne HCl 50 MG eded} Pregabalin Pregabalin No Pregabalin 50 MG 50 MG 50 MG Cyclobenzap Cyclobenzap No Cyclobenza rine HCl 10 rine HCl 10 rachid HCl MG MG 10 MG Chlorzoxazo Chlorzoxazo No 1{table QD Chlorzoxaz ne 500 MG ne 500 MG t_as_ne one 500 MG eded} CeleXA 20 CeleXA 20 No 1{table QD CeleXA 20 MG MG t} MG Adderall XR Adderall XR No 1{capsu QD Adderall 20 MG 20 MG le_in_t XR 20 MG he_morn ing} traMADol traMADol No 1{table QD traMADol HCl 50 MG HCl 50 MG t_as_ne HCl 50 MG eded} Cyclobenzap Cyclobenzap No Cyclobenza rine HCl 10 rine HCl 10 rachid HCl MG MG 10 MG CeleXA 20 CeleXA 20 No 1{table QD CeleXA 20 MG MG t} MG Adderall XR Adderall XR No 1{capsu QD Adderall 20 MG 20 MG le_in_t XR 20 MG he_morn ing} Chlorzoxazo Chlorzoxazo No 1{table QD Chlorzoxaz ne 500 MG ne 500 MG t_as_ne one 500 MG eded} Pregabalin Pregabalin No Pregabalin 50 MG 50 MG 50 MG Chlorzoxazo Chlorzoxazo No 1{table QD Chlorzoxaz ne 500 MG ne 500 MG t_as_ne one 500 MG eded} Cyclobenzap Cyclobenzap No Cyclobenza rine HCl 10 rine HCl 10 rachid HCl MG MG 10 MG CeleXA 20 CeleXA 20 No 1{table QD CeleXA 20 MG MG t} MG Pregabalin Pregabalin No Pregabalin 50 MG 50 MG 50 MG traMADol traMADol No 1{table QD traMADol HCl 50 MG HCl 50 MG t_as_ne HCl 50 MG eded} traMADol traMADol No 1{table QD HCl 50 MG HCl 50 MG t_as_ne eded} CeleXA 20 CeleXA 20 No 1{table QD MG MG t} Cyclobenzap Cyclobenzap No 1{table rine HCl 10 rine HCl 10 t_at_be MG MG dtime_a s_neede d} Pregabalin Pregabalin No 50 MG 50 MG Chlorzoxazo Chlorzoxazo No 1{table QD ne 500 MG ne 500 MG t_as_ne eded} CeleXA 20 CeleXA 20 No 1{table QD MG MG t} traMADol traMADol No 1{table QD traMADol HCl 50 MG HCl 50 MG t_as_ne HCl 50 MG eded} CeleXA 20 CeleXA 20 No 1{table QD CeleXA 20 MG MG t} MG Cyclobenzap Cyclobenzap No 1{table Cyclobenza rine HCl 10 rine HCl 10 t_at_be rachid HCl MG MG dtime_a 10 MG s_neede d} Pregabalin Pregabalin No Pregabalin 50 MG 50 MG 50 MG Chlorzoxazo Chlorzoxazo No 1{table QD Chlorzoxaz ne 500 MG ne 500 MG t_as_ne one 500 MG eded} CeleXA 20 CeleXA 20 No 1{table QD CeleXA 20 MG MG t} MG traMADol traMADol No 1{table QD traMADol HCl 50 MG HCl 50 MG t_as_ne HCl 50 MG eded} Cyclobenzap Cyclobenzap No 1{table Cyclobenza rine HCl 10 rine HCl 10 t_at_be rachid HCl MG MG dtime_a 10 MG s_neede d} CeleXA 20 CeleXA 20 No 1{table QD CeleXA 20 MG MG t} MG CeleXA 20 CeleXA 20 No 1{table QD CeleXA 20 MG MG t} MG Chlorzoxazo Chlorzoxazo No 1{table QD Chlorzoxaz ne 500 MG ne 500 MG t_as_ne one 500 MG eded} Pregabalin Pregabalin No Pregabalin 50 MG 50 MG 50 MG Pregabalin Pregabalin No Pregabalin 50 MG 50 MG 50 MG CeleXA 20 CeleXA 20 No 1{table QD CeleXA 20 MG MG t} MG traMADol traMADol No 1{table QD traMADol HCl 50 MG HCl 50 MG t_as_ne HCl 50 MG eded} Chlorzoxazo Chlorzoxazo No 1{table QD Chlorzoxaz ne 500 MG ne 500 MG t_as_ne one 500 MG eded} CeleXA 20 CeleXA 20 No 1{table QD CeleXA 20 MG MG t} MG Cyclobenzap Cyclobenzap No 1{table Cyclobenza rine HCl 10 rine HCl 10 t_at_be rachid HCl MG MG dtime_a 10 MG s_neede d} Cyclobenzap Cyclobenzap No 1{table Cyclobenza rine HCl 10 rine HCl 10 t_at_be rachid HCl MG MG dtime_a 10 MG s_neede d} CeleXA 20 CeleXA 20 No 1{table QD CeleXA 20 MG MG t} MG Cyclobenzap Cyclobenzap No 1{table Cyclobenza rine HCl 10 rine HCl 10 t_at_be rachid HCl MG MG dtime_a 10 MG s_neede d} Pregabalin Pregabalin No Pregabalin 50 MG 50 MG 50 MG traMADol traMADol No 1{table QD traMADol HCl 50 MG HCl 50 MG t_as_ne HCl 50 MG eded} CeleXA 20 CeleXA 20 No 1{table QD CeleXA 20 MG MG t} MG Cyclobenzap Cyclobenzap No 1{table Cyclobenza rine HCl 10 rine HCl 10 t_at_be rachid HCl MG MG dtime_a 10 MG s_neede d} Chlorzoxazo Chlorzoxazo No 1{table QD Chlorzoxaz ne 500 MG ne 500 MG t_as_ne one 500 MG eded} CeleXA 20 CeleXA 20 No 1{table QD CeleXA 20 MG MG t} MG Pregabalin Pregabalin No Pregabalin 50 MG 50 MG 50 MG traMADol traMADol No 1{table QD traMADol HCl 50 MG HCl 50 MG t_as_ne HCl 50 MG eded} Cyclobenzap Cyclobenzap No Cyclobenza rine HCl 10 rine HCl 10 rachid HCl MG MG 10 MG CeleXA 20 CeleXA 20 No 1{table QD CeleXA 20 MG MG t} MG Chlorzoxazo Chlorzoxazo No 1{table QD Chlorzoxaz ne 500 MG ne 500 MG t_as_ne one 500 MG eded} CeleXA 20 CeleXA 20 No 1{table QD CeleXA 20 MG MG t} MG CeleXA 20 CeleXA 20 No 1{table QD CeleXA 20 MG MG t} MG Pregabalin Pregabalin No Pregabalin 50 MG 50 MG 50 MG traMADol traMADol No 1{table QD traMADol HCl 50 MG HCl 50 MG t_as_ne HCl 50 MG eded} Cyclobenzap Cyclobenzap No Cyclobenza rine HCl 10 rine HCl 10 rachid HCl MG MG 10 MG Chlorzoxazo Chlorzoxazo No 1{table QD Chlorzoxaz ne 500 MG ne 500 MG t_as_ne one 500 MG eded} CeleXA 20 CeleXA 20 No 1{table QD CeleXA 20 MG MG t} MG Pregabalin Pregabalin No Pregabalin 50 MG 50 MG 50 MG traMADol traMADol No 1{table QD traMADol HCl 50 MG HCl 50 MG t_as_ne HCl 50 MG eded} Cyclobenzap Cyclobenzap No Cyclobenza rine HCl 10 rine HCl 10 rachid HCl MG MG 10 MG CeleXA 20 CeleXA 20 No 1{table QD CeleXA 20 MG MG t} MG Chlorzoxazo Chlorzoxazo No 1{table QD Chlorzoxaz ne 500 MG ne 500 MG t_as_ne one 500 MG eded} CeleXA 20 CeleXA 20 No 1{table QD CeleXA 20 MG MG t} MG Pregabalin Pregabalin No Pregabalin 50 MG 50 MG 50 MG Chlorzoxazo Chlorzoxazo No 1{table QD Chlorzoxaz ne 500 MG ne 500 MG t_as_ne one 500 MG eded} CeleXA 20 CeleXA 20 No 1{table QD CeleXA 20 MG MG t} MG Cyclobenzap Cyclobenzap No Cyclobenza rine HCl 10 rine HCl 10 rachid HCl MG MG 10 MG Cyclobenzap Cyclobenzap No 1{table Cyclobenza rine HCl 10 rine HCl 10 t_at_be rachid HCl MG MG dtime_a 10 MG s_neede d} traMADol traMADol No 1{table QD traMADol HCl 50 MG HCl 50 MG t_as_ne HCl 50 MG eded} Adderall XR Adderall XR No 1{capsu QD Adderall 20 MG 20 MG le_in_t XR 20 MG he_morn ing} Cyclobenzap Cyclobenzap No Cyclobenza rine HCl 10 rine HCl 10 rachid HCl MG MG 10 MG traMADol traMADol No 1{table QD traMADol HCl 50 MG HCl 50 MG t_as_ne HCl 50 MG eded} Chlorzoxazo Chlorzoxazo No 1{table QD Chlorzoxaz ne 500 MG ne 500 MG t_as_ne one 500 MG eded} Pregabalin Pregabalin No Pregabalin 50 MG 50 MG 50 MG CeleXA 20 CeleXA 20 No 1{table QD CeleXA 20 MG MG t} MG traMADol traMADol No 1{table QD traMADol HCl 50 MG HCl 50 MG t_as_ne HCl 50 MG eded} Adderall XR Adderall XR No 1{capsu QD Adderall 20 MG 20 MG le_in_t XR 20 MG he_morn ing} Pregabalin Pregabalin No Pregabalin 50 MG 50 MG 50 MG Chlorzoxazo Chlorzoxazo No 1{table QD Chlorzoxaz ne 500 MG ne 500 MG t_as_ne one 500 MG eded} Cyclobenzap Cyclobenzap No Cyclobenza rine HCl 10 rine HCl 10 rachid HCl MG MG 10 MG Immunizations Ordered Immunization Filled Immunization Date Status Commen ts Source Name Name Flucelvax - single Flucelvax - single 2022-04-03 Completed [facility] dose syringe dose syringe 16:17:00 - [facility] Vital Signs Vital Name Observation Time Observation Value Comments Source height 2022-04-03 16:00:00 65 [in_i] [facility] weight 2022-04-03 16:00:00 181.0 [lb_av] [facility] temperature 2022-04-03 16:00:00 97.6 [degF] [facility] bmi 2022-04-03 16:00:00 30.12 kg/m2 [facility] oximetry 2022-04-03 16:00:00 99 % [facility] respiratory rate 2022-04-03 16:00:00 18 /min Comm on [facility] blood pressure 2022-04-03 16:00:00 131 mm[Hg] [facility] - systolic [facility] blood pressure 2022-04-03 16:00:00 75 mm[Hg] [facility] - diastolic [facility] height 2022-01-02 11:40:00 65 [in_i] [facility] weight 2022-01-02 11:40:00 195 [lb_av] [facility] temperature 2022-01-02 11:40:00 97 [degF] [facility] bmi 2022-01-02 11:40:00 32.45 kg/m2 [facility] height 2021-09-25 13:00:00 65 [in_i] [facility] weight 2021-09-25 13:00:00 195 [lb_av] [facility] temperature 2021-09-25 13:00:00 98.7 [degF] [facility] bmi 2021-09-25 13:00:00 32.45 kg/m2 [facility] - [facility] blood pressure 2021-09-25 13:00:00 126 mm[Hg] [facility] - systolic [facility] blood pressure 2021-09-25 13:00:00 76 mm[Hg] [facility] - diastolic [facility] height 2021-06-29 15:50:00 65 [in_i] [facility] - [facility] weight 2021-06-29 15:50:00 195 [lb_av] [facility] - [facility] temperature 2021-06-29 15:50:00 97 [degF] [facility] - [facility] bmi 2021-06-29 15:50:00 32.45 kg/m2 [facility] - [facility] height 2021-04-25 16:30:00 65 [in_i] [facility] weight 2021-04-25 16:30:00 195 [lb_av] [facility] - [facility] temperature 2021-04-25 16:30:00 98 [degF] [facility] bmi 2021-04-25 16:30:00 32.45 kg/m2 [facility] - [facility] blood pressure 2021-04-25 16:30:00 120 mm[Hg] [facility] - systolic [facility] blood pressure 2021-04-25 16:30:00 76 mm[Hg] [facility] - diastolic [facility] height 2021-03-17 10:30:00 65 [in_i] [facility] weight 2021-03-17 10:30:00 188 [lb_av] [facility] - [facility] temperature 2021-03-17 10:30:00 97.5 [degF] [facility] - [facility] bmi 2021-03-17 10:30:00 31.28 kg/m2 [facility] - [facility] height 2021-02-13 08:00:00 65 [in_i] [facility] weight 2021-02-13 08:00:00 190 [lb_av] [facility] temperature 2021-02-13 08:00:00 98 [degF] [facility] bmi 2021-02-13 08:00:00 31.61 kg/m2 [facility] Procedures Procedure Date / Time Performed Performing Clinician Sour e BI ULTRASOUND BREAST 2019-12-24 18:37:59 Requisition, Paper [facility] LIMITED RIGHT Medical Branch BI SELF-REFERRED 2019-12-16 16:15:00 [facility] SCREENING MAMMOGRAM Medical Bran ch BILATERAL Encounters Start End Encounter Admission Attending Care Care Encounter Source Date/Time Date/Time Type Type Clinicians Facility Department ID 2022-01-02 Outpatient [facility], STLMLC STLMLC [id number] Common 13:46:02 [facility] 2021-10-13 Outpatient Pitst, STLMLC STLMLC [id number] Common 10:47:18 [facility] 2021-07-21 Outpatient Pitts, STLMLC STLMLC [id number] Common 13:46:00 [facility] 2021-06-21 Outpatient Pitts, STLMLC STLMLC [id number] Common 14:28:30 [facility] 2021-06-21 Outpatient Pitts, STLMLC STLMLC [id number] Common 14:26:46 Marques [id number] [facility] 2021-06-21 Outpatient Pitts, STLMLC STLMLC [id number] Common 13:29:55 Marques [id number] [facility] 2021-06-21 Outpatient Pitts, STLMLC STLMLC [id number] Common 13:20:25 Marques [facility] 2021-06-21 Outpatient Pitts, STLMLC STLMLC [id number] Common 13:19:12 [facility] 2021-06-21 Outpatient Pitts, STLMLC STLMLC [id number] Common 12:58:21 Marques [id number] [facility] 2021-06-21 Outpatient Pitts, STLMLC STLMLC [id number] Common 12:47:39 Marques [id number] [facility] 2021-06-21 Outpatient Pitts, STLMLC STLMLC Common 12:47:28 Marques [id number] [facility] 2021-06-21 Outpatient Pitts, STLMLC STLMLC Common 12:42:29 Marques [id number] [facility] 2022-04-03 2022-04-03 PREV VISIT STLMLC STLMLC [id number] Common 00:00:00 00:00:00 EST AGE [facility] [age] [facility] 2022-03-13 2022-03-13 (TEL) STLMLC STLMLC [id number] Co mmon 00:00:00 00:00:00 [facility] 2022-02-01 2022-02-01 (TEL) STLMLC STLMLC [id number] Co mmon 00:00:00 00:00:00 [facility] 2022-01-22 2022-01-22 (TEL) STLMLC STLMLC [id number] Co mmon 00:00:00 00:00:00 [facility] 2022-01-02 2022-01-02 OFFICE STLMLC STLMLC [id number] Co mmon 00:00:00 00:00:00 VISIT EST Spir it PT LEVEL 3 - [facility] 2021-09-25 2021-09-25 OFFICE STLMLC STLMLC [id number] Co mmon 00:00:00 00:00:00 VISIT Spirit ESTAB PT - [facility] LEVEL 4 [facility] 2021-07-17 2021-07-17 (TEL) STLMLC STLMLC [id number] Co mmon 00:00:00 00:00:00 [facility] 2021-06-29 2021-06-29 OFFICE STLMLC STLMLC [id number] Co mmon 00:00:00 00:00:00 VISIT EST Spir it PT LEVEL 3 - [facility] 2021-06-27 2021-06-27 (TEL) STLMLC STLMLC [id number] Co mmon 00:00:00 00:00:00 [facility] 2021-04-25 2021-04-25 OFFICE STLMLC STLMLC [id number] Co mmon 00:00:00 00:00:00 VISIT [facility] PT - CHI LEVEL 4 [facility] 2021-04-10 2021-04-10 (WEB) STLMLC STLMLC [id number] Co mmon 00:00:00 00:00:00 [facility] 2021-03-17 2021-03-17 OFFICE STLMLC STLMLC [id number] Co mmon 00:00:00 00:00:00 VISIT [facility] PT - CHI LEVEL 4 [facility] 2021-02-14 2021-02-14 (TEL) STLMLC STLMLC [id number] Co mmon 00:00:00 00:00:00 [facility] 2021-02-13 2021-02-13 OFFICE STLMLC STLMLC [id number] Co mmon 00:00:00 00:00:00 VISIT [facility] PT - CHI LEVEL 4 [facility] 2021-01-25 2021-01-25 Outpatient STLMLC STLMLC [id number] Common 00:00:00 00:00:00 [facility] 2021-01-23 2021-01-23 Outpatient STLMLC STLMLC [id number] Common 00:00:00 00:00:00 [facility] 2020-12-19 2020-12-19 Outpatient STLMLC STLMLC [id number] Common 00:00:00 00:00:00 [facility] 2020-11-21 2020-11-21 Outpatient STLMLC STLMLC [id number] Common 00:00:00 00:00:00 [facility] 2020-10-31 2020-10-31 Outpatient STLMLC STLMLC [id number] Common 00:00:00 00:00:00 [facility] 2020-10-25 2020-10-25 Outpatient STLMLC STLMLC [id number] Common 00:00:00 00:00:00 [facility] 2020-09-26 2020-09-26 Outpatient STLMLC STLMLC [id number] Common 00:00:00 00:00:00 [facility] 2020-09-08 2020-09-08 Outpatient STLMLC STLMLC [id number] Common 00:00:00 00:00:00 [facility] 2020-08-29 2020-08-29 Outpatient STLMLC STLMLC [id number] Common 00:00:00 00:00:00 [facility] 2020-08-15 2020-08-15 Outpatient STLMLC STLMLC [id number] Common 00:00:00 00:00:00 [facility] 2019-12-24 2019-12-24 Hospital Radiology [facility] [id number] 12:43:00 23:59:00 Encounter [place] [id number] [place] [id number] [place] [id number] 2019-12-24 2019-12-24 Hospital Radiology [place] [id number] [facility] 12:43:00 23:59:00 Encounter [place] [id number] ity of [place] [id number] [facility] [id number] [address] 2019-12-24 2019-12-24 Outpatient R RADIOLOGY [facility] [id number] [facility] 00:00:00 00:00:00 [facility] of [facility] 2019-12-16 2019-12-16 Hospital Radiology [facility] [id number] 10:30:00 23:59:00 Encounter [place] [id number] [place] [id number] [place] [id number] 2019-12-16 2019-12-16 Hospital Radiology [facility] [id number] [facility] 10:30:00 23:59:00 Encounter [place] [id number] ity of [place] [id number] [facility] [id number] [facility] [address] 2019-12-16 2019-12-16 Outpatient R RADIOLOGY [facility] [id number] Univers 00:00:00 00:00:00 [facility] 2019-08-01 2019-08-01 Emergency E [place], MHBL MHBL [id number] MHBL 13:27:00 15:30:00 EMERITA Results Test Description Test Time Test Comments Results Result Sourc e Comments BI ULTRASOUND 2019-11-27 Impression:No Universi ty of BREAST LIMITED 0 worrisome solid mass [facility] 18:41:32 detected. Branch Recommendation:Annua l mammographic follow-up - Right BI-RADS Category:Right [...] or other abnormal findings in theright breast. [facility], Radiant Results Inft User - 12/24/2019 1:42 [...] Examination:BI Univ ersity of SCREENING 2 SELF-REFERRED [place] [facility] 17:25:47 SCREENING MAMMOGRAM Branc [...]
[2022-04-24] MEDS ORDERED: KETOROLAC 30 MG/ML INJ ONE (09:13)
[2022-04-24] MEDS ORDERED: MORPHINE 4 MG/ML SYR ONE (09:13)
[2022-04-24] MEDS ORDERED: DIAZEPAM 5 MG TABLET ONE (09:13)
[2022-04-24] MEDS ORDERED: ONDANSETRON 4 MG (ODT) TAB ONE (09:14)
--- NOTE | 2022-04-24 10:00 | ER ---
Nurse's Notes [facility] Name: Isma Castillo Age: 46 yrs Sex: Female : 1975 Arrival Date: 04/24/2022 Time: 08:42 Bed 12 Private MD: Marques Pitts Diagnosis: Lumbago with sciatica, left side Presentation: 04/24 08:52 Chief complaint: Patient states: "I work at [employer] and I was trying to move a bag of dog vg1 food, 35#, and I didn't have control of the bag and it pulled me forward making me tense my back; I've messed up my L5 S1 in the past and this feels in the same area" States pain in back that radiates down Left leg. Incident happened this morning around 0805. Coronavirus screen: Vaccine status: Patient reports receiving the 2nd dose of the covid vaccine. Client denies travel out of the [place] in the last 14 days. Ebola Screen: Patient negative for fever greater than or equal to 101.5 degrees Fahrenheit, and additional compatible Ebola Virus Disease symptoms. Initial Sepsis Screen: Does the patient meet any 2 criteria? No. Patient's initial sepsis screen is negative. Does the patient have a suspected source of infection? No. Patient's initial sepsis screen is negative. Risk Assessment: Do you want to hurt yourself or someone else? Patient reports no desire to harm self or others. Onset of symptoms was April 24, 2022. 08:52 Method Of Arrival: Wheelchair vg1 08:52 Acuity: ZAKI 4 vg1 Triage Assessment: 08:56 General: Appears in no apparent distress. uncomfortable, Behavior is calm, cooperative. vg1 Pain: Complains of pain in back Pain currently is 10 out of 10 on a pain scale. Musculoskeletal: Circulation, motion, and sensation intact. PATIENT CARE REPRESENTATIVE: 08:56 LMP N/A - Hysterectomy vg1 Historical: - Allergies: 08:56 No Known Allergies; vg1 - PMHx: 08:56 Anxiety; Fibromyalgia; insomnia; vg1 - PSHx: 08:56 hysterectomy; Disc replacment C5-7; breast reduction; vg1 - Immunization history:: Client reports receiving the 2nd dose of the Covid vaccine. - Social history:: Smoking status: Patient denies any tobacco usage or history of. Screenin:14 Abuse screen: Denies threats or abuse. Denies injuries from another. Nutritional ss screening: No deficits noted. Tuberculosis screening: No symptoms or risk factors identified. Fall Risk None identified. Assessment: 10:14 Reassessment: Pt reports she is feeling better after medication administration. ss General: Appears in no apparent distress. Denies fever, feeling ill. Pain: Complains of pain in back. Neuro: Level of Consciousness is awake, alert, obeys commands, Oriented to person, place, time, situation. Cardiovascular: Capillary refill < 3 seconds is brisk in bilateral fingers. Respiratory: Airway is patent Respiratory effort is even, unlabored, Respiratory pattern is regular, symmetrical. Derm: Skin is dry, Skin is pink, warm \\T\\ dry. normal. Musculoskeletal: Circulation, motion, and sensation intact. Range of motion: intact in all extremities, Swelling absent. Vital Signs: 08:52 BP 128 / 81; Pulse 109; Resp 17; Temp 98.7; Pulse Ox 98% ; Weight 86.18 kg; Height 5 vg1 ft. 5 in. (165.10 cm); Pain 10/10; 08:52 Body Mass Index 31.62 (86.18 kg, 165.10 cm) vg1 ED Course: 08:42 Patient arrived in ED. mr 08:42 Marques Pitts DO is Private Physician. mr 08:43 Marcos Parker PA is PHCP. jmm 08:43 Raymond Mcdonnell MD is Attending Physician. jmm 08:56 Triage completed. vg1 08:56 Arm band placed on. vg1 09:23 Nelly Vann, RN is Primary Nurse. vg1 09:59 Marques Pitts DO is Referral Physician. jmm 09:59 No provider procedures requiring assistance completed. Patient did not have IV access ph during this emergency room visit. 10:14 Patient has correct armband on for positive identification. ss Administered Medications: 09:15 Drug: Ondansetron 4 mg Route: PO; vg1 10:00 Follow up: Response: No adverse reaction ph 09:15 Drug: Valium (diazepam) 5 mg Route: PO; vg1 09:59 Follow up: Response: No adverse reaction; Marked relief of symptoms; Pain is decreased ph 09:18 Drug: morphine 4 mg Route: IM; Site: right deltoid; vg1 10:00 Follow up: Response: No adverse reaction; Marked relief of symptoms; Pain is decreased ph 09:20 Drug: Ketorolac 30 mg Route: IM; Site: left deltoid; vg1 10:00 Follow up: Response: No adverse reaction; Marked relief of symptoms; Pain is decreased ph Medication: 10:14 VIS not applicable for this client. ss Outcome: 09:59 Discharge ordered by . eunice 10:14 Discharged to home ambulatory. 10:14 Condition: good 10:14 Discharge instructions given to patient, Instructed on discharge instructions, follow up and referral plans. medication usage, Demonstrated understanding of instructions, follow-up care, medications. 10:19 Patient left the ED. Signatures: Marcos Parker PA PA jmm Rivera, Mary mr Smirch, Shelby, RN RN Zuleyka Whitney RN RN Nelly Vann, RN RN vg1
--- NOTE | 2022-04-24 10:00 | EDPHYS ---
Physician Documentation [facility] Name: Isma Castillo Age: 46 yrs Sex: Female : 1975 Arrival Date: 04/24/2022 Time: 08:42 Bed 12 Private MD: [facility] ED Physician Raymond Mcdonnell HPI: 04/24 09:09 This 46 yrs old Female presents to ER via Wheelchair with complaints of Back Pain. jmm 09:09 The patient presents with pain that is acute. Onset: The symptoms/episode jmm began/occurred acutely, just prior to arrival. The pain radiates to the left leg. Associated signs and symptoms: Pertinent negatives: abdominal pain, chest pain, constipation, dysuria, fever, headache, hematuria, incontinence, nausea, numbness, tingling, urinary retention, vomiting. This a 46-year-old female with history of anxiety, fibromyalgia, insomnia the presents emerged part with complaints of acute onset lower back pain which occurred after she moved a heavy bag of dog food. Patient states pain now radiates down the left leg. Denies any bowel or urinary issues. Symptoms have occurred previously in the past. 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 - Social history:: Smoking status: Patient denies any tobacco usage or history of. ROS: 09:09 Constitutional: Negative for fever, chills, and weight loss, Cardiovascular: Negative jmm for chest pain, palpitations, and edema, Respiratory: Negative for shortness of breath, cough, wheezing, and pleuritic chest pain. 09:09 Back: Positive for pain with movement. 09:09 All other systems are negative. Exam: 09:09 Head/Face: atraumatic. Eyes: EOMI, no conjunctival erythema appreciated ENT: Moist jmm Mucus Membranes Neck: Trachea midline, Supple Chest/axilla: Normal chest wall appearance and motion. Cardiovascular: Regular rate and rhythm. No edema appreciated Respiratory: Normal respirations, no respiratory distress appreciated Abdomen/GI: Non distended 09:09 Constitutional: The patient appears alert, awake, anxious, uncomfortable. 09:09 Back: pain, that is moderate, of the lumbar area, Straight leg raises: left lower extremity illicits pain, at 45 degrees. 09:09 Neuro: Extensor hallucis longus intact bilaterally. 09:09 Psych: Behavior/mood is pleasant, cooperative. Vital Signs: 08:52 BP 128 / 81; Pulse 109; Resp 17; Temp 98.7; Pulse Ox 98% ; Weight 86.18 kg; Height 5 vg1 ft. 5 in. (165.10 cm); Pain 10; 08:52 Body Mass Index 31.62 (86.18 kg, 165.10 cm) vg1 MDM: 09:09 Patient medically screened. [facility] 09:58 Data reviewed: vital signs, nurses notes. Counseling: I had a detailed discussion with euncie the patient and/or guardian regarding: the historical points, exam findings, and any diagnostic results supporting the discharge/admit diagnosis, the need for outpatient follow up, to return to the emergency department if symptoms worsen or persist or if there are any questions or concerns that arise at home. 09:58 ED course: Pain relieved in the ED. I do not currently suspect cord compression or jmm cauda equina. Patient advised follow-up PCP otherwise given strict return precautions. Patient understood agrees plan of care.. Administered Medications: 09:15 Drug: Ondansetron 4 mg Route: PO; vg1 10:00 Follow up: Response: No adverse reaction ph 09:15 Drug: Valium (diazepam) 5 mg Route: PO; vg1 09:59 Follow up: Response: No adverse reaction; Marked relief of symptoms; Pain is decreased ph 09:18 Drug: morphine 4 mg Route: IM; Site: right deltoid; vg1 10:00 Follow up: Response: No adverse reaction; Marked relief of symptoms; Pain is decreased ph 09:20 Drug: Ketorolac 30 mg Route: IM; Site: left deltoid; vg1 10:00 Follow up: Response: No adverse reaction; Marked relief of symptoms; Pain is decreased ph Disposition: 11:00 I agree with the assessment and plan of care. Attestation: The patient's history, exam jr11 findings, diagnostics, and a summary of any interventions or procedures was reviewed in detail with Marcos SILVA. Disposition Summary: 04/24/22 09:59 Discharge Ordered Location: Home [facility] Condition: Stable jm Diagnosis - Lumbago with sciatica, left side jmm Followup: [facility] - With: Marques Pitts, - When: 2 - 3 days - Reason: Recheck today's complaints, Continuance of care, Re-evaluation by your physician Discharge Instructions: - Discharge Summary Sheet [facility] - Sciatica [facility] Forms: - Medication Reconciliation Form [facility] - Thank You Letter [facility] - Antibiotic Education [facility] - Prescription Opioid Use [facility] - Work release form Prescriptions: - Zanaflex 4 mg Oral Tablet - take 1 tablet by ORAL route every 8 hours As needed; 20 tablet; Refills: 0, [facility] Product Selection Permitted - Diclofenac Sodium 75 mg Oral Tablet Sustained Release - take 1 tablet by ORAL route 2 times per day; 30 tablet; Refills: 0, Product [facility] Selection Permitted Signatures: Marcos Parker PA PA jm Nelly Vann RN RN vg1 Raymond Mcdonnell MD MD [id number] Zuleyka Jose RN
[2022-04-24 10:24] VITALS: BP 128/81; TEMP 98.7; O2SAT 98
== END 2022-04-24 10:19 | disposition home or self-care (01) ==
LOC: ER 08:39
DX: M54.42 Lumbago with sciatica, left side (principal)
CPT/HCPCS: 96372; 99283; Q0162

== ENCOUNTER 2022-06-18 16:06 | Emergency (ER) | payer BC ==
--- OUTSIDE RECORDS SUMMARY | 2022-06-18 16:09 | XMS REPORT | Continuity of Care Document ---
:1975 Author Organization [facility] t Address [address] [place] [address] Care Team Providers Name Role Phone Marques Pitts Attending Clinician Unavailable Radiology Attending Clinician Unavailable RADIOLOGY Attending Clinician Unavailable EMERITA MACEDO Attending Clinician Unavailable Payers Payer Name Policy Type Policy Number Effective Date Expiration Date S [place] [employer] 6 [id number] 2020 Common Spir it Blue Shield of 00:00:00 - [facility] Problems Condition Condition Condition Status Onset Resolution Last Treating Co mments Source Name Details Category Date Date Treatment Clinician Date [id number] Body mass Problem Com mon index Spirit [BMI] - [facility] 32.0-32.9, [facility] [id number] Other Problem Common obesity Spirit due to - [facility] excess 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 [id number] Cervical Problem Comm on disc Spirit herniation - [facility] [id number] Mixed Problem Common hyperlipid Spirit emia - [facility] [id number] Migraine Problem Comm on without Spirit aura and - [facility] without [facility] migrainosu Medica l s, not Center intractabl e [id number] Primary Problem Common insomnia [facility] - [facility] [id number] Panic Problem Common disorder Spirit [episodic - [facility] paroxysmal St anxiety] [facility] [id number] Other Problem Common chronic [facility] pain [facility] Allergies, Adverse Reactions, Alerts Allergy Allergy Status Severity Reaction(s) Onset Inactive Treating Comm ents Source Name Type Date Date Clinician NO KNOWN Drug Active Univers ALLERGIE Class ity [facility] [place] Social History Social Habit Start Date Stop Date Quantity Comments Source Exposure to SARS-CoV-2 Not sure [facility] History of Tobacco Use Co mmon [facility] Sex Assigned At Com mon [facility] Smoking Status Start Date Stop Date Source Former Smoker 2022-04-02 00:00:00 2022-04-02 00:00:00 Common S pirit [facility] Medications Ordered Filled Start Stop Current Ordering Indication Dosage Frequency Signature Comments Components Source Medication Medication Date Date Medication? Clinician (SIG) Name Name Adderall XR Adderall XR 2021-05 No 1{capsu QD Adderall 25 MG 25 MG 2-23 le_in_t XR 25 MG 00:00: he_morn 00 ing} Adderall XR Adderall XR 2021-05 No 1{capsu QD Adderall 25 MG 25 MG 1-21 le_in_t XR 25 MG 00:00: he_morn 00 ing} Zolpidem Zolpidem 2021-05 No 1{table QD Zolpidem Tartrate ER Tartrate ER 1-08 t_at_be Tartrate 12.5 MG 12.5 MG 00:00: [...] 1{capsu QD Adderall 25 MG 25 MG - le_in_t XR 25 MG 00:00: he_morn 00 [...] 1{capsu QD Adderall 25 MG 25 MG - le_in_t XR 25 MG 00:00: he_morn 00 [...] 12.5 MG 00 s_neede d} Amphetamine Amphetamine No 1{capsu QD Amphetamin -Dextroamph [...] ing} Amphetamine Amphetamine 2021-0 No 1{capsu QD -Dextroamph -Dextroamph 3-03 le_in_t [...] MG 00:00: he_morn 00 ing} Zolpidem Zolpidem No 1{table QD Tartrate ER Tartrate ER [...] No 1{table QD Tartrate 10 Tartrate 10 -23 t_at_be MG MG 00:00: dtime_a 00 s_neede [...] 00 s_neede d} BACLOFEN Yes Take by [facility] [employer] ORAL 4-03 mouth. ity of 15:34: [address] BACLOFEN Yes Take by [facility] ORAL 4-03 mouth. ity of 15:34: [address] citalopram Yes Take by [facility] ers hydrobromid 4-03 mouth. ity of e (CELEXA 15:34: [place] ORAL) [address] [place] [address] eszopiclone Yes Take by Uni vers (LUNESTA 4-03 mouth. ity of ORAL) 15:34: [address] citalopram Yes Take by [facility] ers hydrobromid 4-03 mouth. ity of e (CELEXA 15:34: [place] ORAL) [address] [place] [address] eszopiclone Yes Take by Uni vers (LUNESTA 4-03 mouth. ity of ORAL) 15:34: [place] [facility] albuterol 2020-0 Yes 2{puff} Inhale 2 U [...] Common Spirit dose syringe dose syringe 16:17:00 [facility] Vital Signs Vital Name Observation Time Observation Value Comments Source height 2022-04-03 16:00:00 65 [in_i] [facility] weight 2022-04-03 16:00:00 181.0 [lb_av] [facility] temperature 2022-04-03 16:00:00 97.6 [degF] [facility] bmi 2022-04-03 16:00:00 30.12 kg/m2 [facility] oximetry 2022-04-03 16:00:00 99 % [facility] respiratory rate 2022-04-03 16:00:00 18 /min Comm on Spirit [facility] blood pressure 2022-04-03 16:00:00 131 mm[Hg] [facility] - systolic [facility] blood pressure 2022-04-03 16:00:00 75 mm[Hg] [facility] - diastolic [facility] height 2022-01-02 11:40:00 65 [in_i] [facility] weight 2022-01-02 11:40:00 195 [lb_av] [facility] temperature 2022-01-02 11:40:00 97 [degF] [facility] bmi 2022-01-02 11:40:00 32.45 kg/m2 [facility] height 2021-09-25 13:00:00 65 [in_i] [facility] weight 2021-09-25 13:00:00 195 [lb_av] Common S pirit - [facility] temperature 2021-09-25 13:00:00 98.7 [degF] Common S pirit - [facility] bmi 2021-09-25 13:00:00 32.45 kg/m2 Common S pirit [facility] blood pressure 2021-09-25 13:00:00 126 mm[Hg] Common Spirit - systolic [facility] blood pressure 2021-09-25 13:00:00 76 mm[Hg] Common Spirit - diastolic [facility] height 2021-06-29 15:50:00 65 [in_i] Common S pirit [facility] weight 2021-06-29 15:50:00 195 [lb_av] [facility] temperature 2021-06-29 15:50:00 97 [degF] [facility] bmi 2021-06-29 15:50:00 32.45 kg/m2 [facility] S pirit [facility] height 2021-04-25 16:30:00 65 [in_i] Common S pirit [facility] weight 2021-04-25 16:30:00 195 [lb_av] Common S pirit [facility] temperature 2021-04-25 16:30:00 98 [degF] [facility] S pirit [facility] bmi 2021-04-25 16:30:00 32.45 kg/m2 Common S pirit - [facility] blood pressure 2021-04-25 16:30:00 120 mm[Hg] Common Spirit - systolic [facility] blood pressure 2021-04-25 16:30:00 76 mm[Hg] Common Spirit - diastolic [facility] height 2021-03-17 10:30:00 65 [in_i] Common S pirit [facility] weight 2021-03-17 10:30:00 188 [lb_av] [facility] temperature 2021-03-17 10:30:00 97.5 [degF] Common S pirit [facility] bmi 2021-03-17 10:30:00 31.28 kg/m2 Common [facility] height 2021-02-13 08:00:00 65 [in_i] Common [facility] weight 2021-02-13 08:00:00 190 [lb_av] [facility] temperature 2021-02-13 08:00:00 98 [degF] Common [facility] bmi 2021-02-13 08:00:00 31.61 kg/m2 Common [facility] Procedures Procedure Date / Time Performed Performing Clinician Sourc e BI ULTRASOUND BREAST 2019-12-24 18:37:59 Requisition, Paper [facility] RIGHT Medical Branch BI SELF-REFERRED 2019-12-16 16:15:00 Adrien Murray [facility] SCREENING MAMMOGRAM Medical Bran ch BILATERAL Encounters Start End Encounter Admission Attending Care Care Encounter Source Date/Time Date/Time Type Type Clinicians Facility Department ID 2022-01-02 Outpatient Pitts, STLMLC STLMLC [id number] Common 13:46:02 Marques [id number] [facility] 2021-10-13 Outpatient Pitts, STLMLC STLMLC [id number] Common 10:47:18 Marques [facility] 2021-07-21 Outpatient Pitts, STLMLC STLMLC [id number] Common 13:46:00 Marques [facility] 2021-06-21 Outpatient Pitts, STLMLC STLMLC [id number] Common 14:28:30 Marques [facility] 2021-06-21 Outpatient Pitts, STLMLC STLMLC [id number] Common 14:26:46 Marques [id number] [facility] 2021-06-21 Outpatient Pitts, STLMLC STLMLC [id number] Common 13:29:55 Marques [id number] [facility] 2021-06-21 Outpatient Pitts, STLMLC STLMLC [id number] Common 13:20:25 Marques [id number] [facility] 2021-06-21 Outpatient Pitts, STLMLC STLMLC [id number] Common 13:19:12 Marques 18430 [facility] 2021-06-21 Outpatient Pitts, STLMLC STLMLC [id number] Common 12:58:21 Marques [id number] [facility] 2021-06-21 Outpatient Pitts, STLMLC STLMLC [id number] Common 12:47:39 Marques [id number] [facility] 2021-06-21 Outpatient Pitts, STLMLC STLMLC [id number] Common 12:47:28 Marques [id number] [facility] 2021-06-21 Outpatient Pitts, STLMLC STLMLC [id number] Common 12:42:29 Marques [id number] [facility] 2022-04-03 2022-04-03 PREV VISIT STLMLC STLMLC [id number] Common 00:00:00 00:00:00 EST AGE Spirit 40-64 - [facility] 2022-03-13 2022-03-13 (TEL) STLMLC STLMLC [id number] Co mmon 00:00:00 00:00:00 [facility] 2022-02-01 2022-02-01 (TEL) STLMLC STLMLC [id number] Co mmon 00:00:00 00:00:00 [facility] 2022-01-22 2022-01-22 (TEL) STLMLC STLMLC [id number] Co mmon 00:00:00 00:00:00 [facility] 2022-01-02 2022-01-02 OFFICE STLMLC STLMLC [id number] Co mmon 00:00:00 00:00:00 VISIT EST Spir it PT LEVEL 3 - [facility] 2021-09-25 2021-09-25 OFFICE STLMLC STLMLC [id number] Co mmon 00:00:00 00:00:00 VISIT Spirit ESTAB PT - CHI LEVEL 4 [facility] 2021-07-17 2021-07-17 (TEL) STLMLC STLMLC [id number] Co mmon 00:00:00 00:00:00 [facility] 2021-06-29 2021-06-29 OFFICE STLMLC STLMLC [id number] Co mmon 00:00:00 00:00:00 VISIT EST Spir it PT LEVEL 3 - [facility] 2021-06-27 2021-06-27 (TEL) STLMLC STLMLC [id number] Co mmon 00:00:00 00:00:00 [facility] 2021-04-25 2021-04-25 OFFICE STLMLC STLMLC [id number] Co mmon 00:00:00 00:00:00 VISIT [facility] PT - CHI LEVEL 4 [facility] 2021-04-10 2021-04-10 (WEB) STLMLC STLMLC [id number] Co mmon 00:00:00 00:00:00 [facility] 2021-03-17 2021-03-17 OFFICE STLMLC STLMLC [id number] Co mmon 00:00:00 00:00:00 VISIT [facility] PT - CHI LEVEL 4 [facility] 2021-02-14 2021-02-14 (TEL) STLMLC STLMLC [id number] Co mmon 00:00:00 00:00:00 [facility] 2021-02-13 2021-02-13 OFFICE STLMLC STLMLC [id number] Co mmon 00:00:00 00:00:00 VISIT [facility] PT - CHI LEVEL 4 [facility] 2021-01-25 2021-01-25 Outpatient STLMLC STLMLC [id number] Common 00:00:00 00:00:00 [facility] 2021-01-23 2021-01-23 Outpatient STLMLC STLMLC [id number] Common 00:00:00 00:00:00 [facility] 2020-12-19 2020-12-19 Outpatient STLMLC STLMLC [id number] Common 00:00:00 00:00:00 [facility] 2020-11-21 2020-11-21 Outpatient STLMLC STLMLC [id number] Common 00:00:00 00:00:00 [facility] 2020-10-31 2020-10-31 Outpatient STLMLC STLMLC [id number] Common 00:00:00 00:00:00 [facility] 2020-10-25 2020-10-25 Outpatient STLMLC STLMLC [id number] Common 00:00:00 00:00:00 [facility] 2020-09-26 2020-09-26 Outpatient STLMLC STLMLC [id number] Common 00:00:00 00:00:00 [facility] 2020-09-08 2020-09-08 Outpatient STLMLC STLMLC [id number] Common 00:00:00 00:00:00 [facility] 2020-08-29 2020-08-29 Outpatient STLMLC STLMLC [id number] Common 00:00:00 00:00:00 [facility] 2020-08-15 2020-08-15 Outpatient STLMLC STLMLC [id number] Common 00:00:00 00:00:00 [facility] 2019-12-24 2019-12-24 Hospital Radiology [facility] [id number] 12:43:00 23:59:00 Encounter [place] [id number] [place] [id number] [place] [id number] 2019-12-24 2019-12-24 Hospital Radiology [facility] [id number] [facility] 12:43:00 23:59:00 Encounter [place] [id number] ity of [place] [id number] [facility] [id number] [address] 2019-12-24 2019-12-24 Outpatient R RADIOLOGY [facility] [id number] Univers 00:00:00 00:00:00 ity of [facility] 2019-12-16 2019-12-16 Hospital Radiology [facility] [id number] 10:30:00 23:59:00 Encounter [place] [id number] [place] [id number] [place] [id number] [facility] 2019-12-16 2019-12-16 Hospital Radiology [facility] [id number] Univers 10:30:00 23:59:00 Encounter [place] [id number] ity of [place] [id number] [facility] [id number] [facility] [address] 2019-12-16 2019-12-16 Outpatient R RADIOLOGY [facility] [id number] Univers 00:00:00 00:00:00 ity of [facility] 2019-08-01 2019-08-01 [id number] 13:27:00 15:30:00 EMERITA Results Test Description Test Time Test Comments Results Result Sourc e Comments BI ULTRASOUND 2019-11-27 Impression:No Universi ty of BREAST LIMITED 0 worrisome solid mass [place] [facility] RIGHT 18:41:32 detected. Branch Recommendation:Annua l mammographic follow-up [...] or other abnormal findings in theright breast. [facility], Radiant Results Inft User - 12/24/2019 [...]
[2022-06-18] MEDS ORDERED: KETOROLAC 30 MG/ML INJ ONE (17:49)
[2022-06-18] MEDS ORDERED: HYDROMORPHONE HCL 0.5 MG/0.5 ML INJ ONE (17:49)
[2022-06-18] MEDS ORDERED: dexAMETHasone 10 MG/ML VIAL ONE (17:49)
--- NOTE | 2022-06-18 18:37 | ER ---
Nurse's Notes [facility] Name: Isma Castillo Age: 47 yrs Sex: Female : 1975 Arrival Date: 06/18/2022 Time: 16:08 Bed 10 Private MD: Diagnosis: Low back pain Presentation: 06/18 16:58 Chief complaint: Patient states: L low back pain that radiates down L leg. Pt was seen in ER back in March for the same complaint and has had an MRI since then. Pt reports that the pain has been ongoing since March, but got much worse today when using the bathroom. Coronavirus screen: Client denies travel out of the [place] in the last 14 days. Ebola Screen: Patient denies exposure to infectious person. Patient denies travel to an Ebola-affected area in the 21 days before illness onset. Initial Sepsis Screen: Does the patient meet any 2 criteria? No. Patient's initial sepsis screen is negative. Does the patient have a suspected source of infection? No. Patient's initial sepsis screen is negative. Risk Assessment: Do you want to hurt yourself or someone else? Patient reports no desire to harm self or others. Onset of symptoms was June 18, 2022. 16:58 Method Of Arrival: Ambulatory 16:58 Acuity: ZAKI 3 Historical: - Allergies: 17:01 No Known Allergies; ss - PMHx: 17:01 Anxiety; Fibromyalgia; insomnia; ss - PSHx: 17:01 breast reduction; Disc replacment C5-7; hysterectomy; ss - Immunization history:: Client reports receiving the 2nd dose of the Covid vaccine. - Social history:: Smoking status: Patient denies any tobacco usage or history of. Vital Signs: 16:58 BP 129 / 84; Pulse 114; Resp 20; Temp 98.2(TE); Pulse Ox 100% on R/A; Weight 86.18 kg; Height 5 ft. 5 in. (165.10 cm); Pain 9/10; 16:58 Body Mass Index 31.62 (86.18 kg, 165.10 cm) ED Course: 16:08 Patient arrived in ED. rg4 16:14 Yamil Cosme PA is PHCP. jr8 16:14 Gareth Gonzalez DO is Attending Physician. jr8 17:00 Triage completed. 17:01 Arm band placed on right wrist. 17:58 Amber Hyde, RN is Primary Nurse. iw Administered Medications: 17:58 Drug: Dilaudid (HYDROmorphone) 0.5 mg Route: IVP; Site: right antecubital; iw 17:58 Drug: Ketorolac 15 mg Route: IVP; Site: right antecubital; iw 17:58 Drug: Decadron - Dexamethasone 10 mg Route: IVP; Site: right antecubital; iw 18:08 Drug: Robaxin (methocarbamol) 1 grams Route: IVPB; Infused Over: 1 hrs; Site: right iw antecubital; Outcome: 18:37 Discharge ordered by . marcus 18:59 Patient left the ED. Signatures: Amber Hyde, RN NUPUR Renetta Benitez RN RN Yamil Cosme PA PA jr8 Dulce Maria Vann rg4
--- NOTE | 2022-06-18 18:37 | EDPHYS ---
Physician Documentation [facility] Name: Isma Castillo Age: 47 yrs Sex: Female : 1975 Arrival Date: 06/18/2022 Time: 16:08 Bed 10 Private MD: ED Physician Gareth Gonzalez HPI: 06/18 17:16 This 47 yrs old Female presents to ER via Ambulatory with complaints of Back Pain. jr8 17:16 The patient presents with pain that is acute. The symptoms are located in the low back. jr8 Onset: The symptoms/episode began/occurred acutely, today. The pain radiates to the left leg. Associated signs and symptoms: The patient has no apparent associated signs or symptoms. The problem was sustained when bending over. Modifying factors: The patient symptoms are alleviated by nothing, the patient symptoms are aggravated by any movement. Severity of symptoms: At their worst the symptoms were moderate, in the emergency department the symptoms are unchanged. The patient has experienced similar episodes in the past, a few times. The patient has been recently seen by a physician:. This is a 47-year-old female patient that presented to the emergency room with acute onset low back pain. Patient had a recent injury to the low back secondary to work accident. Had an MRI completed and was found to have herniated disc. Has been seen by [employer]. primary care and was told they can only do [id number] medicine. Was referred to pain management under [employer]er[employer]. who said the same thing but will do nerve injections as well. Has been waiting for scheduled appointment but at this time has been trying to control pain with hpsh-[id number] medicine. Patient today while trying to get up had acute pain to the low back. Denies bowel or bladder dysfunction or acute weakness.. Historical: - Allergies: 17:01 No Known Allergies; ss - PMHx: 17:01 Anxiety; Fibromyalgia; insomnia; ss - PSHx: 17:01 breast reduction; Disc replacment C5-7; hysterectomy; ss - Immunization history:: Client reports receiving the 2nd dose of the Covid vaccine. - Social history:: Smoking status: Patient denies any tobacco usage or history of. ROS: 17:19 Eyes: Negative for injury, pain, redness, and discharge, ENT: Negative for injury, jr8 pain, and discharge, Neck: Negative for injury, pain, and swelling, Cardiovascular: Negative for chest pain, palpitations, and edema, Respiratory: Negative for shortness of breath, cough, wheezing, and pleuritic chest pain, Abdomen/GI: Negative for abdominal pain, nausea, vomiting, diarrhea, and constipation, MS/Extremity: Negative for injury and deformity, Skin: Negative for injury, rash, and discoloration, Neuro: Negative for headache, weakness, numbness, tingling, and seizure. 17:19 Back: Positive for decreased range of motion, pain at rest, pain with movement, radiated pain. Exam: 17:19 Cardiovascular: Tachycardia present with a normal rhythm with a normal S1 and S2. No jr8 gallops, murmurs, or rubs. Normal PMI, no JVD. No pulse deficits. Respiratory: Lungs have equal breath sounds bilaterally, clear to auscultation and percussion. No rales, rhonchi or wheezes noted. No increased work of breathing, no retractions or nasal flaring. Abdomen/GI: Soft, non-tender, with normal bowel sounds. No distension or tympany. No guarding or rebound. No evidence of tenderness throughout. Skin: Warm, dry with normal turgor. Normal color with no rashes, no lesions, and no evidence of cellulitis. MS/ Extremity: Pulses equal, no cyanosis. Neurovascular intact. Full, normal range of motion. Neuro: Awake and alert, GCS 15, oriented to person, place, time, and situation. Cranial nerves II-XII grossly intact. Motor strength 5/5 in all extremities. Sensory grossly intact. Cerebellar exam normal. Normal gait. 17:19 Constitutional: The patient appears alert, awake, in obvious pain. 17:19 Back: pain, that is moderate, of the low back area, ROM is painful, with all movement, normal spinal alignment noted, CVA tenderness, is absent, vertebral tenderness, is appreciated at L2, L3 and L4. Vital Signs: 16:58 BP 129 / 84; Pulse 114; Resp 20; Temp 98.2(TE); Pulse Ox 100% on R/A; Weight 86.18 kg; ss Height 5 ft. 5 in. (165.10 cm); Pain 9/10; 16:58 Body Mass Index 31.62 (86.18 kg, 165.10 cm) MDM: 17:09 Patient medically screened. jr8 18:23 Differential diagnosis: sprain, disc bulge, disc herniation, DDD, acute cord syndrome. jr8 Data reviewed: vital signs, nurses notes. Data reviewed: diagnostic data from outside facility, MRI Report. Shows L4-L5 disc bulge with annular tear lateral aspect. L5-S1 with disc herniation . I considered the following discharge prescriptions or medication management in the emergency department Medications were administered in the Emergency Department. See MAR. External Records Reviewed: Outpatient radiology: See Reviewed Data . 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 Response to treatment: the patient's symptoms have markedly improved after treatment. ED course: Patient hemodynamically stable and heart rate at normal level. Pain markedly decreased at this time. Reassessment without acute focal deficit. Recommended second opinion by ortho spine and second pain management physician. We will start her on other medications at home to help with pain as neither of her Worker[employer]. pain management physician or primary practice physician have given her more than meloxicam. Discussed with her if she were to have focal deficit or worsening condition to come back for further evaluation. Patient will follow up as previously stated and is good with plan otherwise. Stable to be discharged home at this time.. 18:31 ED course: [place] CLAIM CLERK assessed. I do not find any abnormal findings suggesting that jr8 patient cannot have narcotic pain medication for acute pain. Safety explanation about pain medicine given to patient.. 06/18 17:09 Order name: IV Saline Lock; Complete Time: 17:59 jr8 Administered Medications: 17:58 Drug: Dilaudid (HYDROmorphone) 0.5 mg Route: IVP; Site: right antecubital; iw 17:58 Drug: Ketorolac 15 mg Route: IVP; Site: right antecubital; iw 17:58 Drug: Decadron - Dexamethasone 10 mg Route: IVP; Site: right antecubital; iw 18:08 Drug: Robaxin (methocarbamol) 1 grams Route: IVPB; Infused Over: 1 hrs; Site: right iw antecubital; Disposition: 19:23 Co-signature as Attending Physician, Gareth Gonzalez DO I was immediately available on-site ms3 in the Emergency Department for consultation in the care of the patient. Disposition Summary: 06/18/22 18:37 Discharge Ordered Location: Home jr8 Problem: new jr8 Symptoms: have improved jr8 Condition: Stable jr8 Diagnosis - Low back pain jr8 Followup: jr8 - With: Private Physician - When: 2 - 3 days - Reason: Recheck today's complaints, Continuance of care, Re-evaluation by your physician Discharge Instructions: - Discharge Summary Sheet jr8 - Acute Back Pain, Adult jr8 - Musculoskeletal Pain jr8 - Heat Therapy jr8 Forms: - Medication Reconciliation Form jr8 - Thank You Letter jr8 - Antibiotic Education jr8 - Prescription Opioid Use jr8 Prescriptions: - tramadol 200 mg Oral capsule,ER biphase 24 hr 25-75 - take 1 capsule by ORAL route once daily; 10 capsule; Refills: 0, Product jr8 Selection Permitted - Medrol (Anibal) 4 mg Oral Tablets, Dose Pack - take 1 tablet by ORAL route as directed - follow package instructions; 1 jr8 packet; Refills: 0, Product Selection Permitted Signatures: Amber Hyde, RN RN Renetta Benitez RN RN ss Roszak, Josh, PA PA jr8 Gareth Gonzalez DO DO ms3
[2022-06-18 21:03] VITALS: BP 129/84; TEMP 98.2; O2SAT 100
== END 2022-06-18 18:59 | disposition home or self-care (01) ==
LOC: ER 16:06
DX: M54.50 Low back pain, unspecified (principal)
CPT/HCPCS: J1100; J1170; J2800; 96374; 96375; 99282